=== PATIENT | female | born 1945 | race Caucasian/White ===

== ENCOUNTER 2019-10-28 13:33 | Inpatient (IN) | payer MEDICARE, OTHER ==
[2019-10-28] MEDS ORDERED: KETOROLAC 30 MG/ML 1 ML VIAL IVP STA (13:51)
[2019-10-28] MEDS ORDERED: MORPHINE SULFATE 4 MG/ML SYRINGE IVP STA (13:51)
--- NOTE | 2019-10-28 14:11 | ED ---
General Adult HPI - General Chief complaint: Extremity Injury, Upper Stated complaint: Fall/Wrist pain Time Seen by Provider: 10/28/19 13:41 Source: patient, RN notes reviewed, old records reviewed Mode of arrival: EMS Limitations: physical limitation - History of Present Illness Initial comments: 74-year-old female presents status post fall. She states she was helping a friend move, tripped falling backwards onto her right hand and wrist. Denies any other significant pain complaint. She did not have loss consciousness. She is not currently on any medication. She is otherwise healthy. She was transported by EMS with deformity at the right wrist. She was placed in a splint for transport. He is complaining of pain only at the right wrist. - Related Data Allergies Allergy/AdvReac Type Severity Reaction Status Date / Time No Known Allergies Allergy Verified 10/28/19 14:05 Review of Systems ROS Statement: Those systems with pertinent positive or pertinent negative responses have been documented in the HPI. ROS Other: All systems not noted in ROS Statement are negative. Past Medical History Past Medical History: GERD/Reflux History of Any Multi-Drug Resistant Organisms: None Reported Past Surgical History: No Surgical Hx Reported Past Psychological History: No Psychological Hx Reported Smoking Status: Never smoker Past Alcohol Use History: None Reported Past Drug Use History: None Reported General Exam Limitations: physical limitation General appearance: alert, in no apparent distress Head exam: Present: atraumatic, normocephalic Eye exam: Present: normal appearance, PERRL ENT exam: Present: normal exam Neck exam: Present: normal inspection. Absent: tenderness, meningismus Respiratory exam: Present: normal lung sounds bilaterally. Absent: respiratory distress, wheezes Cardiovascular Exam: Present: regular rate. Absent: normal rhythm, bradycardia GI/Abdominal exam: Present: soft. Absent: distended, tenderness Extremities exam: Present: other (Right upper extremity, deformity noted to the right wrist, normal sensation, limited range of motion secondary to pain, normal cap refill distally, 2+ radial pulse.) Back exam: Present: normal inspection Neurological exam: Present: alert, oriented X3, CN II-XII intact. Absent: motor sensory deficit Psychiatric exam: Present: normal affect, normal mood Skin exam: Present: warm, dry Course Vital Signs 10/28/19 10/28/19 13:42 14:13 Temperature 98 F Pulse Rate 61 68 Respiratory 18 18 Rate Blood Pressure 93/60 94/53 O2 Sat by Pulse 93 L 98 Oximetry Procedures - Orthopedic Fracture Reduction Fracture #1 Consent Obtained: verbal consent Side: right Analgesia: none Technique: direct manipulation, traction/counter-traction Post Reduction X-rays Demonstrate: acceptable reduction Post-Reduction Neuro Exam: intact Post-Reduction Vascular Exam: intact Splint Applied: Yes Patient Tolerated Procedure: well - Orthopedic Splinting/Casting Injury #1 Side: right Upper Extremity Injury Location: wrist Upper Extremity Immobilizer: volar splint Medical Decision Making - Medical Decision Making 74-year-old female had presented for evaluation of fall and right wrist pain and deformity. She has impacted angulated distal radius and ulnar fracture. I did reduce this fracture while playing splint. Repeat x-ray shows improved alignment. I discussed case with [facility] for [facility], recommends admission for operative repair tomorrow. Patient will be admitted to orthopedics with medicine on consult for preoperative clearance. Laboratory studies have been obtained these results are pending. Disposition Clinical Impression: Distal radial fracture Disposition: ADMITTED IP TO THIS [facility] Condition: Stable Is patient prescribed a controlled substance at d/c from ED?: No Referrals: Ousmane Miller III, MD [Primary Care Provider] - 1-2 days Decision to Admit Reason: Admit from EC Decision Date: 10/21/19 Decision Time: 15:54
--- NOTE | 2019-10-28 14:28 | XR ---
EXAMINATION TYPE: XR wrist complete RT DATE OF EXAM: 10/28/2019 COMPARISON: NONE HISTORY: Pain TECHNIQUE: Four views submitted. FINDINGS: There is impacted fracture of the distal radius with ulnar styloid chip fracture. Dorsal angulation n oted of the radial fracture. Soft tissue edema noted. Additional well-corticated densities in the reg ion of the ulnar styloid suggest remote trauma. IMPRESSION: 1. Impacted angulated fracture distal radius. 2. Suspect there is a chip fracture off the ulnar styloid noted on the oblique view.
--- NOTE | 2019-10-28 15:33 | XR ---
EXAMINATION TYPE: XR wrist limited RT DATE OF EXAM: 10/28/2019 CLINICAL HISTORY: Status post reduction of right wrist. Trauma. TECHNIQUE: Frontal and lateral images of the right wrist are obtained. COMPARISON: Right wrist radiograph 10/28/2019 at 2:15 PM FINDINGS: Overlying casting material. Interval reduction of impacted distal radial fracture, with mi ldly decreased shortening and dorsal angulation of the distal fragment versus prior comparison. Ulnar styloid fracture redemonstrated. Soft tissue swelling. IMPRESSION: Persistent although mildly decreased shortening and dorsal angulation of the distal radial fracture f ragment status post reduction. Ulnar styloid avulsion fracture.
[2019-10-28] MEDS ORDERED: IBUPROFEN 400 MG TAB PO PRN (15:46)
[2019-10-28] MEDS ORDERED: NALOXONE 0.4 MG/ML 1 ML VIAL IV PRN (15:46)
[2019-10-28] MEDS ORDERED: HYDROmorphone 0.5 MG/0.5 ML SYRINGE IVP PRN ×2 (15:46→17:28)
[2019-10-28 16:34] LABS: Basophils % (A) 0 %; Eosinophils # (A) 0.1 k/uL (0-0.7); Eosinophils % (A) 1 %; HCT 41.6 % (34.0-46.0); HGB 13.7 gm/dL (11.4-16.0); Lymphocytes % (A) 14 %; MCH 30.9 pg (25.0-35.0); MCHC 32.9 g/dL (31.0-37.0); MCV 93.9 fL (80.0-100.0); Mean Platelet Volume 7.6; Monocytes # (A) 0.2 k/uL (0-1.0); Monocytes % (A) 3 %; Neutrophils # (A) 5.8 k/uL (1.3-7.7); Neutrophils % (A) 82 %; Platelet Count 234 k/uL (150-450); RBC 4.43 m/uL (3.80-5.40); RDW 12.8 % (11.5-15.5)
[2019-10-28 16:45] LABS: INR 0.9 (<1.2); Prothrombin Time 9.8 sec (9.0-12.0)
[2019-10-28 16:54] LABS: ALT 16 U/L (4-34); AST 25 U/L (14-36); African American GFR (CKD) >90 (>60 ml/min/1.73 sqM); Albumin 3.9 g/dL (3.5-5.0); Alkaline Phosphatase 59 U/L (38-126); Anion Gap 6 mmol/L; Blood Urea Nitrogen 14 mg/dL (7-17); Calcium 8.9 mg/dL (8.4-10.2); Carbon Dioxide 28 mmol/L (22-30); Chloride 103 mmol/L (98-107); Glucose 140 mg/dL (74-99); Non-African American GFR(CKD) 86 (>60 ml/min/1.73 sqM); Potassium 3.7 mmol/L (3.5-5.1); Sodium 137 mmol/L (137-145); Total Bilirubin 1.2 mg/dL (0.2-1.3); Total Protein 6.6 g/dL (6.3-8.2)
[2019-10-28] MEDS ORDERED: LIDOCAINE 1% (10MG/ML) FOR IV START INTRADERMA PRN (17:28)
[2019-10-28] MEDS: SODIUM CHLORIDE 0.9% 1,000 ML IV SCH (18:04)
[2019-10-28] MEDS: ACETAMINOPHEN TAB 325 MG TAB PO PRN (20:45)
[2019-10-29] MEDS: ACETAMINOPHEN TAB 325 MG TAB PO PRN (08:16)
--- NOTE | 2019-10-29 09:45 | P.HPOR ---
History of Present Illness H&P Date: 10/29/19 Chief Complaint: Right distal radius fracture Patient is a 74-year-old female presented to [facility] yesterday afternoon after falling when she was helping a friend move something. She tripped and fell backwards landing on her wrist. Upon arrival to the hospital, imaging and lab tests were done. Images demonstrated a displaced right distal radius fracture with angulation, reduction. An attempt was made for by the ER physician to manipulate the fracture It better, and she was then placed in a volar splint. I was contacted by the emergency room staff, I was unable to discuss the case to my attending Dr. Garcia. The patient was admitted under our care with plan for likely surgical intervention. She had no other orthopedic complaints at the time. Patient was evaluated at bedside today, she is resting comfortably, her daughter was present. She note her discomfort is mainly in the wrist. She has no other orthopedic complaints. She normally drives on her own. She uses no devices to help with ambulation. Denies any headaches, lightheadedness, chest pain, shortness of breath, abdominal discomfort, fever or chills. Review of Systems Constitutional: Reports as per HPI Past Medical History Past Medical History: GERD/Reflux History of Any Multi-Drug Resistant Organisms: None Reported Past Surgical History: No Surgical Hx Reported Additional Past Surgical History / Comment(s): bilateral cataract surgery; right leg vein stripping Past Anesthesia/Blood Transfusion Reactions: No Reported Reaction Past Psychological History: No Psychological Hx Reported Smoking Status: Never smoker Past Alcohol Use History: None Reported Past Drug Use History: None Reported Medications and Allergies Home Medications Medication Instructions Recorded Confirmed Type No Known Home Medications 10/28/19 10/28/19 History Allergies Allergy/AdvReac Type Severity Reaction Status Date / Time No Known Allergies Allergy Verified 10/28/19 16:22 Physical Examination Right upper extremity Basic volar wrist splint is intact, no obvious open lesions or sores are visua lized proximal distal to the splint. There is no pain with palpation surrounding the shoulder, upper arm, elbow, fingers. Minimal soft tissue swelling present in the fingers. She is able to wiggle the fingers minimal difficulty. Her sensation to light touch is intact. Her skin is warm to touch. Results - Labs Labs: Abnormal Lab Results - Last 24 Hours (Table) 10/28/19 Range/Units 16:10 Glucose 140 H (74-99) mg/dL H & H 10/28/19 Range/Units 16:10 Hgb 13.7 (11.4-16.0) gm/dL Hct 41.6 (34.0-46.0) % Coagulation 10/28/19 Range/Units 16:21 INR 0.9 (<1.2) Result Diagrams: 10/28/19 16:10 10/28/19 16:10 - Diagnostic results Wrist/Hand x-ray: report reviewed, image reviewed (X-rays were reviewed pre-and post reduction. Images demonstrated a comminuted and displaced right distal radius fracture.) Assessment and Plan Assessment: Displacing comminuted right distal radius fracture Status post fall from standing Plan: After discussion of the case with Dr. Garcia, this including both physical exam findings and imaging studies we recommend surgical intervention. More specifically would like to proceed with an open reduction internal fixation procedure of the right distal radius fracture on 10/29/2019. Patient was made nothing by mouth after midnight, she has continued this into the morning. We will continue this total after surgery. Pain control, patient did not do well with a lot of. Utilize Tylenol, likely tramadol and morphine as needed Obtain consent Risk and benefits of the procedure were discussed patient, she is in good understanding and would like to proceed. Medical recommendations Further recommendations to follow after surgery, possible discharge home today depending on patient is in the postoperative period. Time with Patient: Less than 30
[2019-10-29] MEDS ORDERED: MIDAZOLAM 2 MG/2 ML VIAL IVP ONE (12:16)
[2019-10-29] MEDS ORDERED: LACTATED RINGERS 1,000 ML IV ONE ×2 (12:36)
[2019-10-29] MEDS ORDERED: ONDANSETRON 4 MG/2 ML VIAL ONE (13:03)
[2019-10-29] MEDS: DEXAMETHASONE SOD PHOSPHATE 10 MG/ML 1 ML VIAL IV ONE ×2 (13:05→17:17)
[2019-10-29] MEDS ORDERED: ONDANSETRON 4 MG/2 ML VIAL IVP ONE (13:05)
[2019-10-29] MEDS ORDERED: LIDOCAINE 1% INJ 10MG/ML (20 ML MDV) ONE (13:06)
[2019-10-29] MEDS ORDERED: DEXAMETHASONE SOD PHOSPHATE 4 MG/ML 1 ML VIAL ONE (13:06)
[2019-10-29] MEDS ORDERED: PROPOFOL 10 MG/ML 20 ML VIAL IV ONE (13:06)
[2019-10-29] MEDS ORDERED: ROPIVACAINE 5 MG/ML 30 ML VIAL ONE (13:06)
[2019-10-29] MEDS ORDERED: ROCURONIUM BROMIDE 10 MG/ML 5 ML VIAL IV ONE (13:06)
[2019-10-29] MEDS ORDERED: SUCCINYLCHOLINE CHLORIDE 100 MG/5 ML SYR IV ONE (13:06)
[2019-10-29] MEDS ORDERED: ceFAZolin 1,000 MG in SODIUM CHLORIDE 0.9% 1,000 ML IRRIGATION ONE (13:33)
--- NOTE | 2019-10-29 14:47 | P.OP ---
Date of Procedure: 10/29/19 Preoperative Diagnosis: Displaced right intra-articular distal radius fracture Postoperative Diagnosis: Same Procedure(s) Performed: Open reduction and internal fixation right intra-articular distal wrist fracture Implants: Arthrex 3 hole narrow volar plate Anesthesia: sunita SIDDIQI Surgeon: Roney Garcia Jewel Inserter #1: Yefri Sharma Estimated Blood Loss (ml): 5 Pathology: none sent Condition: stable Disposition: PACU Indications for Procedure: The patient's 74-year-old female who presents after falling injuring her right wrist. Upon evaluation she was noted have a significantly displaced/comminuted/angulated intra-articular distal radius fracture. A discussion of the risks and benefits of operative intervention was made with the patient. She opted to proceed with surgery. Operative risks to include infection, neurovascular injury, development of nonunion/malunion, possible need for subsequent procedures was discussed. Informed consent was obtained. Operative Findings: As below Description of Procedure: The patient was brought to the operating room, and after induction of general anesthesia the right upper extremity was prepped and draped in normal fashion. The tourniquet was inflated to 250 mmHg. An 8 cm incision was then made along the volar radial aspect of the right wrist over the flexor carpi radialis. Skin was incised sharply. Subcutaneous tissues were divided bluntly. The flexor carpi radialis tendon sheath was opened. The tendon was gently retracted ulnarly and the radial artery retracted radially with a blunt retractor. The un derlying fascia was opened. The contents the carpal canal were bluntly dissected ulnarly. The pronator quadratus was elevated off the distal radius and the fracture site was identified and cleaned of clot and debris. This was then provisionally reduced. This was verified with fluoroscopy. The joint line appear to be well restored. A narrow volar plate was placed with an olive wire and a K wire distally. Alignment was verified with fluoroscopy. Proximally 3.5 mm cortical screw the appropriate length was placed to seat the plate. The distal row of locked smooth pegs was placed with the aid of fluoroscopy. A proximal row was filled in a similar fashion. The remaining proximal cortical screws were placed in the appropriate length. Final fluoroscopic views to include PA/AP/elevated lateral showed adequate reduction of the fracture and placement of the implant. The articular surface was well aligned with no real step-off. The wound was irrigated with normal saline. The pronator was repaired with simple 3-0 Vicryl suture. The subcutaneous tissues were reapproximated with simple 3-0 Vicryl suture. The skin was reprepped 4-0 subcuticular Prolene suture. Steri-Strips were applied. A sterile dressing was applied in addition to a volar splint. The tourniquet was deflated prior to final wound closure was less than 60 minutes total tourniquet time. The patient was then awoken from general anesthesia and transferred to the recovery room in good condition. Blood loss was estimated 5 mL. No complications were incurred. Sponge and needle counts were correct at the end of the case.
[2019-10-29] MEDS ORDERED: SODIUM CHLORIDE 0.9% 1,000 ML IV ONE (15:41)
--- NOTE | 2019-10-29 15:50 | XR ---
Limited right wrist HISTORY: Open reduction internal fixation 3 intraoperative images document the procedure
--- NOTE | 2019-10-29 15:51 | FL ---
Fluoroscopy HISTORY: Pain 26 seconds fluoroscopy time supplied to the referring clinician. 3 intraoperative C-arm images docum ent the procedure. See dictated report from orthopedic surgery.
--- NOTE | 2019-10-29 16:59 | P.CONS ---
History of Present Illness - Reason for Consult Consult date: 10/29/19 Medical management and clearance - Chief Complaint Right distal radius fracture - History of Present Illness Patient is a 73-year-old female with a known history of GERD and history of secondhand smoking presents to ER status post fall. Patient states that she was helping her friend to move and she was holding the front of the commode and fell backwards onto her right hand and wrist. Patient states that she landed on her back. After the fall feel she was having right hand pain and unable to move. Patient states that she slipped and fell. Denied any complaints of dizziness lightheadedness. No loss of consciousness. Patient was brought to the hospital by EMS due to deformity of the right wrist. Patient was placed in a splint for transport. Otherwise patient denied any recent illnesses. No complaints of chest pain or shortness of breath. No fever no chills. X-ray of the right hand showed impacted angulated fracture distal radius. Suspect there is still fracture of the ulna styloid noted on the oblique view. Lab data showed WBC 7.0, hemoglobin 13.7 platelets 234 Sodium 137, potassium 3.7, BUN 14 and creatinine 0.68 Urinalysis within normal limits. Review of Systems Constitutional: Patient denies any fever or chills . No generalized weakness or weight loss. Abdomen: Patient denied nausea vomiting and diarrhea and abdominal pain. Cardiovascular: Patient denies any chest pain or short of breath no palpitations. Respiratory: patient denied any cough is from production. No shortness of breath Neurologic: Patient denied any numbness or tingling headache. Musculoskeletal: Patient denies any complaints of joint swelling or deformity. Right forearm pain. Skin: Negative Psychiatric: Negative Endocrine: No heat or cold intolerance. No recent weight gain. Genitourinary: No dysuria or hematuria. All other 14 point ROS negative except the above Past Medical History Past Medical History: GERD/Reflux History of Any Multi-Drug Resistant Organisms: None Reported Past Surgical History: No Surgical Hx Reported Additional Past Surgical History / Comment(s): bilateral cataract surgery; right leg vein stripping Past Anesthesia/Blood Transfusion Reactions: No Reported Reaction Past Psychological History: No Psychological Hx Reported Smoking Status: Never smoker Past Alcohol Use History: None Reported Past Drug Use History: None Reported Medications and Allergies Home Medications Medication Instructions Recorded Confirmed Type No Known Home Medications 10/28/19 10/28/19 History Allergies Allergy/AdvReac Type Severity Reaction Status Date / Time No Known Allergies Allergy Verified 10/28/19 16:22 Physical Exam Vitals: Vital Signs Temp Pulse Pulse Resp BP BP Pulse Ox 10/29/19 08:00 53 L 18 10/29/19 06:02 97.7 F 53 L 18 98/61 99 10/28/19 20:43 97.6 F 53 L 18 103/53 95 10/28/19 18:00 97.8 F 62 18 108/64 98 10/28/19 14:13 68 18 94/53 98 10/28/19 13:42 98 F 61 18 93/60 93 L Intake and Output 10/28/19 10/29/19 10/29/19 22:59 06:59 14:59 Intake Total 40 0 Balance 40 0 Intake: Intake, IV Titration 40 Amount Sodium Chloride 0.9% 1, 40 000 ml @ 20 mls/hr IV . Q24H CONSTANCE Rx#:[id number] Oral 0 Other: Voiding Method Toilet Toilet # Voids 2 Weight 74 kg PHYSICAL EXAMINATION: Patient is lying in the bed comfortably, no acute distress, awake alert and oriented.. HEENT: Normocephalic. Neck is supple. Pupils reactive. Nostrils clear. Oral cavity is moist. Ears reveal no drainage. Neck reveals no JVD, carotid bruits, or thyromegaly. CHEST EXAMINATION: Trachea is central. Symmetrical expansion. Lung rojas clear to auscultation and percussion. CARDIAC: Normal S1, S2 with no gallops. No murmurs ABDOMEN: Soft. Bowel sounds normal. No organomegaly. No abdominal bruits. Extremities: reveal no edema. No clubbing or cyanosis. Splint present on the right forearm. Neurologically awake, alert, oriented x3 with well-coordinated movements. No focal deficits noted Skin: No rash or skin lesions. Psychiatric: Coperative. Nonsuicidal Musculoskeletal: No joint swelling or deformity. Normal range of motion. Results CBC & Chem 7: 10/28/19 16:10 10/28/19 16:10 Labs: Abnormal Lab Results - Last 24 Hours (Table) 10/28/19 Range/Units 16:10 Glucose 140 H (74-99) mg/dL Assessment and Plan Assessment: Distal radius fracture and ulnar styloid fracture Status post mechanical fall while moving furniture. GERD Obesity BMI 31.9 History of secondhand smoking DVT prophylaxis Plan: Patient will be continued on pain management and bowel regimen. Increase incentive spirometry. Orthopedic surgery is planning for open reduction and internal fixation. Patient does not have any history of coronary disease or chronic kidney disease. Currently denies any active complaints of chest pain or shortness of the. Patient is at low risk for moderately disc orthopedic surgery. We will continue to follow with you and further recommendations based on clinical course. Thank you for your consult.
--- NOTE | 2019-10-29 17:14 | P.ANPRN ---
Procedure Note - Anesthesia - Nerve Block Performed Right Supraclavicular Single Time Out Performed: Yes Date of Procedure: 10/29/19 Location of Patient: PreOp Indication: Acute Post-Operative Pain, Requested by Surgeon Sedation Type: Sedate with meaningful contact maintained Preparation: Sterile Prep, Sterile Dressing Position: Supine Catheter: Indwelling Needle Types: Pajunk Needle Gauge: 21 Ultrasound used to visualize needle placement: Yes Ultrasound used to observe medication spread: Yes Blood Aspirated: No Pain Paresthesia on Injection Noted: No Resistance on Injection: Normal Image Stored and Saved: Yes Events: Uneventful and Well Tolerated (ropi .5% 20 cc plus dexamethasone 4mg)
[2019-10-29] MEDS: traMADol 50 MG TAB PO SCH ×2 (17:56→23:02)
[2019-10-29] MEDS: SODIUM CHLORIDE 0.9% 1,000 ML IV SCH (17:59)
[2019-10-29 20:52] VITALS: RESP 18
[2019-10-30 04:28] VITALS: BP 106/52; PULSE 54; TEMP 97.8
[2019-10-30] MEDS: traMADol 50 MG TAB PO SCH ×2 (08:54→11:33)
--- NOTE | 2019-10-30 10:11 | P.PN ---
Subjective Progress Note Date: 10/30/19 Principal diagnosis: Status post ORIF right distal radius fracture Patient evaluated today at bedside, she is resting comfortably. The pain is well-controlled. She still has some numbness in the arm from the block was done prior to surgery. She denies any nausea or vomiting. Objective - Vital Signs Vital signs: Vital Signs Temp 97.8 F 10/30/19 04:20 Pulse 54 L 10/30/19 08:00 Resp 18 10/30/19 08:00 BP 106/52 10/30/19 04:20 Pulse Ox 90 L 10/30/19 04:20 Intake & Output 10/29/19 10/30/19 10/30/19 18:59 06:59 18:59 Intake Total 1151 Output Total 5 Balance 1146 Intake: IV 1151 Output: Estimated Blood Loss 5 Other: Voiding Method Toilet Toilet Toilet # Voids 2 0 # Bowel Movements 0 - Exam Right upper extremity: Postop splint is in good position and condition. Minimal soft tissue swelling noted in the fingers. Skin is warm to touch both proximal and distal to the splint. - Labs CBC & Chem 7: 10/28/19 16:10 10/28/19 16:10 Assessment and Plan Assessment: Status post ORIF right distal radius fracture Plan: Pain control, plan for discharge home on tramadol 50 mg Cast instructions were discussed Arm sling as needed Plan for follow-up at [facility] in 2 weeks Time with Patient: Less than 30
--- NOTE | 2019-10-30 10:13 | P.DS ---
Providers Date of admission: 10/28/19 15:46 Attending physician: Roney Garcia Consults: 10/28/19 15:47 Consult Physician Routine Consulting Provider: Rafaela Gonzalez Consult Reason/Comments: Preop Clearance Do you want consulting provider notified?: Yes Primary care physician: Ousmane Miller [facility] Course: Date of admission: 10/28/2019 Date of discharge: 10/30/2019 Admission diagnosis: Displaced and comminuted right distal radius fracture Discharge diagnosis: Status post ORIF right distal radius fracture Attending physician: Dr. Garcia Surgical procedures: ORIF right distal radius fracture Brief history: Patient is a 74-year-old female who presented to [facility] on 10/28/2019 for evaluation of a right wrist injury. It was determined she had a displaced and comminuted distal radius fracture. She was admitted under orthopedic care for plan for surgical intervention. Hospital course: Details of patient's surgery can be found in operative report. Patient tolerated the procedure well and was subsequently transported to orthopedic floor. Patient's orthopeidc and medical care was provided daily. Patient had daily laboratory tests performed for evaluation of overall blood counts. Patient had daily physical therapy to include strengthening range of motion as well as education with walker ambulation. Patient was noted to have a relatively uneventful postoperative course. Patient reported satisfactory pain control with oral pain medications by postoperative day 0. Patient showed satisfactory progress with physical therapy. Patient moved steadily through the program and had no difficulty meeting the goals by postoperative day 1. Given patient's otherwise satisfactory course and having met physical therapy goals, plan is to discharge patient home on postoperative day 1. Discharge condition/disposition: Patient will be discharged home in stable condition. Discharge medications: Instructions are given on resumption of patient's normal daily medications per primary care recommendation, in addition patient will be prescribed tramadol 50 mg. Discharge instructions: 1. Do not remove the arm splint, utilize sling as needed 2. Arm sling as needed 3. Plan for follow-up at [facility] in 2 weeks Procedures: Open reduction internal fixation distal radius fracture Patient Condition at Discharge: Good Plan - Discharge Summary Discharge Rx Participant: Yes New Discharge Prescriptions: New traMADol HCl [Ultram] 50 mg PO Q6H PRN #21 tab PRN Reason: Pain Discharge Medication List traMADol HCl [Ultram] 50 mg PO Q6H PRN #21 tab 10/30/19 [Rx] Follow up Appointment(s)/Referral(s): Ousmane Miller III, MD [Primary Care Provider] - 1-2 days Yefri Sharma PAC [PHYSICIAN MANUFACTURING ENGINEER SUPERVISOR] - 2 Weeks Activity/Diet/Wound Care/Special Instructions: Wants d/c rx Orthopedic discharge instructions: 1. Do not remove the splint, keep covered and dry while showering 2. Pain medication as needed 3. Plan for follow-up at [facility] in 2 weeks Discharge Disposition: HOME WITH HOME HEALTH SERVICES
== END 2019-10-30 12:38 | disposition home health service (06) | DRG 512 ==
LOC: EC 13:33 → 5NMEDONC 15:46
PROVIDERS: ADMIT Orthopaedic Surgery; ATTEND Orthopaedic Surgery
PROC: 0PSKXZZ Reposition Right Ulna, External Approach (ICD-10-PCS; 2019-10-28)
PROC: 0PSHXZZ Reposition Right Radius, External Approach (ICD-10-PCS; 2019-10-28)
PROC: 0PSH04Z Reposition Right Radius with Internal Fixation Device, Open Approach (ICD-10-PCS; principal; 2019-10-29 07:30)
DX: S52.571A Other intraarticular fracture of lower end of right radius, initial encounter for closed fracture (principal); E66.9 Obesity, unspecified; S52.611A Displaced fracture of right ulna styloid process, initial encounter for closed fracture; I83.90 Asymptomatic varicose veins of unspecified lower extremity; K21.9 Gastro-esophageal reflux disease without esophagitis; Z68.31 Body mass index [BMI] 31.0-31.9, adult; Z77.22 Contact with and (suspected) exposure to environmental tobacco smoke (acute) (chronic); Z98.42 Cataract extraction status, left eye; Z98.41 Cataract extraction status, right eye; Z86.79 Personal history of other diseases of the circulatory system; Z98.890 Other specified postprocedural states; W01.0XXA Fall on same level from slipping, tripping and stumbling without subsequent striking against object, initial encounter
CPT/HCPCS: 25605; 36415; 64450; 76942; 80053; 85025; 85610; 96374; 96375; 99285

== ENCOUNTER → 2019-11-26 | Outpatient (CLI) | payer MEDICARE, OTHER ==
--- NOTE | 2019-11-26 13:16 | BD ---
EXAMINATION TYPE: Axial Bone Density DATE OF EXAM: 11/26/2019 COMPARISON: Prior DEXA bone scan report 2008. CLINICAL HISTORY: Postmenopausal female. Osteoporosis. Height: 60 Weight: 149.8 FRAX RISK QUESTIONS: Alcohol (3 or more units per day): no Family History (Parent hip fracture): no Glucocorticoids (More than 3mos): no (Ex: prednisone, prednisolone, methylprednisolone, dexamethasone, and hydrocortisone). History of Fracture in Adulthood: yes Secondary Osteoporosis: 1. Type 1 Diabetes: no 2. Hyperthyroidism: no 3. Menopause before 45: no 4. Malnutrition: no 5. Chronic liver disease: no Rheumatoid Arthritis: no Current Tobacco Use: no RISK FACTORS HISTORY OF: History of Wrist Fracture: right When: Surgery to Spine/Hip(right/left)/Wrist (right/left): right wrist When: Family History of Osteoporosis: no Active: yes Diet low in dairy products/other sources of calcium: no Postmenopausal woman: age 52 Lost more than 2 inches in height since high school: no MEDICATIONS: none Additional History: EXAM MEASUREMENTS: Bone mineral densitometry was performed using the [employer] System. Bone mineral density as measured about the Lumbar spine is: ----- L1-L4(G/cm2): 1.030 T Score Values are as follows: ----- L2: -1.9 ----- L3: -0.7 ----- L4: -0.3 ----- L1-L4: -1.3 Bone mineral density has: increased 9.1 % since study of: 02.18.2009 Bone mineral density about the R hip (g/cm2): 0.813 Bone mineral density about the L hip (g/cm2): 0.982 T Score values are as follows: -----R Neck: -1.6 -----L Neck: -0.4 -----R Total: -1.2 -----L Total: -0.5 Bone mineral density has: increased 3.1 % since study of: 02.18.2009 IMPRESSION: Osteopenia (T Score between -2.5 and -1). There is slightly increased risk of fracture and the patient may be considered for treatment. Re-Screen 2-5 years. NOTE: T-SCORE=SD OF THE YOUNG ADULT MEAN.
--- NOTE | 2019-11-27 09:57 | MM ---
Reason for exam: screening (asymptomatic). Last mammogram was performed 10 years and 9 months ago. History: Patient is postmenopausal. Family history of breast cancer in daughter at age 42. Physical Findings: A clinical breast exam by your physician is recommended on an annual basis and results should be correlated with mammographic findings. MG 3D Screening Mammo W/Cad Bilateral CC and MLO view(s) were taken. Prior study comparison: February 18, 2009, bilateral digital screening mammogram. May 29, 2007, bilateral diagnostic digital mammog. The breast tissue is heterogeneously dense. This may lower the sensitivity of mammography. Finding: There is a 10 mm equal density (isodense), obscured mass in the subareolar position of the right breast. There is a chronic nodularity in the left breast. ASSESSMENT: Incomplete: need additional imaging evaluation, BI-RAD 0 RECOMMENDATION: Special view mammogram of the right breast. If lesion persists on supplemental views, image directed ultrasound is recommended. [facility] will attempt to contact patient to return for supplemental views and ultrasound if indicated.
== END | disposition home or self-care (01) ==
LOC: RADMAMWWP 08:24
PROVIDERS: ATTEND Family Medicine
DX: Z12.31 Encounter for screening mammogram for malignant neoplasm of breast (principal); M85.80 Other specified disorders of bone density and structure, unspecified site; M81.8 Other osteoporosis without current pathological fracture
CPT/HCPCS: 77063; 77067; 77080

== ENCOUNTER → 2019-12-19 | Outpatient (CLI) | payer MEDICARE, OTHER ==
--- NOTE | 2019-12-19 14:48 | MM ---
Reason for exam: additional evaluation requested from abnormal screening. Last mammogram was performed 1 month ago. History: Patient is postmenopausal. Family history of breast cancer in daughter at age 42. Physical Findings: Nurse did not find any significant physical abnormalities on exam. MG 3D Work Up W/Cad RT Spot compression CC, spot compression MLO, and ML view(s) were taken of the right breast. Prior study comparison: November 26, 2019, bilateral MG 3d screening mammo w/cad. February 18, 2009, bilateral digital screening mammogram. The breast tissue is heterogeneously dense. This may lower the sensitivity of mammography. Focal asymmetry lower right ML view 4.3cm from nipple. These results were verbally communicated with the patient and result sheet given to the patient on 12/19/19. ASSESSMENT: Incomplete: need additional imaging evaluation, BI-RAD 0 RECOMMENDATION: Ultrasound of the right breast.
--- NOTE | 2019-12-19 14:49 | USB ---
Reason for exam: additional evaluation requested from abnormal screening. History: Patient is postmenopausal. Family history of breast cancer in daughter at age 42. US Breast Workup Limited RT Right limited breast ultrasound including focal area of concern, retroareolar and axilla demonstrates a 0.7 x 0.3 x 0.6cm mixed lesion at 9 o'clock. These results were verbally communicated with the patient and result sheet given to the patient on 12/19/19. ASSESSMENT: Probably benign, BI-RAD 3 RECOMMENDATION: Follow-up diagnostic mammogram and ultrasound of the right breast in 6 months.
== END | disposition home or self-care (01) ==
LOC: RADMAMWWP 13:06
PROVIDERS: ATTEND Family Medicine
DX: R92.8 Other abnormal and inconclusive findings on diagnostic imaging of breast (principal)
CPT/HCPCS: 77065; 76642; G0279; 77061

== ENCOUNTER 2020-06-17 08:40 | Emergency (ER) | payer MEDICARE, OTHER ==
[2020-06-17] MEDS ORDERED: SODIUM CHLORIDE 0.9% 1,000 ML IV STA (08:56)
[2020-06-17] MEDS ORDERED: SODIUM CHLORIDE 0.9% 500 ML 500 ML IV STA (08:56)
[2020-06-17 09:17] LABS: Basophils % (A) 0 %; Eosinophils % (A) 1 %; HCT 42.4 % (34.0-46.0); HGB 14.6 gm/dL (11.4-16.0); Lymphocytes # (A) 0.7 k/uL (1.0-4.8); Lymphocytes % (A) 32 %; MCHC 34.5 g/dL (31.0-37.0); MCV 92.7 fL (80.0-100.0); Mean Platelet Volume 7.3; Monocytes # (A) 0.1 k/uL (0-1.0); Monocytes % (A) 5 %; Neutrophils # (A) 1.2 k/uL (1.3-7.7); Neutrophils % (A) 61 %; Platelet Count 132 k/uL (150-450); RBC 4.57 m/uL (3.80-5.40); RDW 11.8 % (11.5-15.5)
[2020-06-17 09:27] LABS: ALT 21 U/L (4-34); AST 45 U/L (14-36); African American GFR (CKD) >90 (>60 ml/min/1.73 sqM); Albumin 3.6 g/dL (3.5-5.0); Alkaline Phosphatase 65 U/L (38-126); Amylase 35 U/L (30-110); Anion Gap 7 mmol/L; Blood Urea Nitrogen 12 mg/dL (7-17); Calcium 8.5 mg/dL (8.4-10.2); Carbon Dioxide 27 mmol/L (22-30); Chloride 103 mmol/L (98-107); Glucose 105 mg/dL (74-99); Lipase 50 U/L (23-300); Non-African American GFR(CKD) >90 (>60 ml/min/1.73 sqM); Sodium 137 mmol/L (137-145); Total Bilirubin 0.6 mg/dL (0.2-1.3); Total Protein 6.5 g/dL (6.3-8.2)
--- NOTE | 2020-06-17 09:32 | XR ---
Lumbar spine HISTORY: Low back pain 3 views of lumbar spine Bone mineralization is reduced which could limit sensitivity. Lumbar vertebral bodies show preserved height. There is a mild spinal curvature. Anterolisthesis grade 1 L4-5. Sclerosis is present in the p osterior elements of the lower lumbar spine. There is loss of disc height present at L3-4, L2-3, L1-2 . IMPRESSION: Degenerative disc disease, osteopenia, facet arthropathy. Spondylolisthesis.
[2020-06-17 10:19] LABS: Appearance,Urine Clear (Clear); Bilirubin,Urine 1+ (Negative); Blood,Urine Moderate (Negative); Color,Urine Yellow; Glucose,Urine (UA) Trace (Negative); Ketones,Urine 2+ (Negative); Leukocyte Esterase,Urine Negative (Negative); Mucus,Urine Many /hpf; Nitrite,Urine Negative (Negative); PH, Urine 5.5 (5.0-8.0); Protein,Urine 1+ (Negative); RBC,Urine 9 /hpf (0-5); Squamous Epithelial Cell,Urine 3 /hpf (0-4); Urobilinogen,Urine <2.0 mg/dL (<2.0); WBC,Urine 5 /hpf (0-5)
[2020-06-17 10:45] VITALS: RESP 18
--- NOTE | 2020-06-17 10:53 | ED ---
General Adult HPI - General Chief complaint: Back Pain/Injury Stated complaint: Dehydrated/back pain/nausea Time Seen by Provider: 06/17/20 08:48 Source: patient, RN notes reviewed Mode of arrival: ambulatory Limitations: no limitations - History of Present Illness Initial comments: This a 74-year-old female presents emergency Department chief complaint of just not feeling well, nausea and dehydration. Patient states that she just hasn't been eating and drinking as much last 2 days. She denies any chest pain shortness breath headache or dizziness. Patient states she went to [facility] but was not seen and left. Patient states that she has no severe abdominal pain no dysuria no hematuria and she offers no other complaints. - Related Data Home Medications Medication Instructions Recorded Confirmed No Known Home Medications 06/17/20 06/17/20 Allergies Allergy/AdvReac Type Severity Reaction Status Date / Time No Known Allergies Allergy Verified 06/17/20 10:13 Review of Systems ROS Statement: Those systems with pertinent positive or pertinent negative responses have been documented in the HPI. ROS Other: All systems not noted in ROS Statement are negative. Past Medical History Past Medical History: GERD/Reflux History of Any Multi-Drug Resistant Organisms: None Reported Past Surgical History: No Surgical Hx Reported Additional Past Surgical History / Comment(s): bilateral cataract surgery; right leg vein stripping Past Anesthesia/Blood Transfusion Reactions: No Reported Reaction Past Psychological History: No Psychological Hx Reported Smoking Status: Never smoker Past Alcohol Use History: None Reported Past Drug Use History: None Reported General Exam Limitations: no limitations General appearance: alert, in no apparent distress Head exam: Present: atraumatic, normocephalic, normal inspection Eye exam: Present: normal appearance, PERRL, EOMI. Absent: scleral icterus, conjunctival injection, periorbital swelling ENT exam: Present: normal exam, normal oropharynx, mucous membranes moist Neck exam: Present: normal inspection, full ROM. Absent: tenderness, men ingismus, lymphadenopathy Respiratory exam: Present: normal lung sounds bilaterally. Absent: respiratory distress, wheezes, rales, rhonchi, stridor Cardiovascular Exam: Present: regular rate, normal rhythm, normal heart sounds. Absent: systolic murmur, diastolic murmur, rubs, gallop, clicks GI/Abdominal exam: Present: soft, normal bowel sounds. Absent: distended, tenderness, guarding, rebound, rigid Course Vital Signs 06/17/20 06/17/20 08:42 10:43 Temperature 99.1 F 98.3 F Pulse Rate 77 64 Respiratory 16 18 Rate Blood Pressure 102/61 106/60 O2 Sat by Pulse 93 L 97 Oximetry Medical Decision Making - Medical Decision Making Patient has no major complaints patient does have mild dehydration patient is positive for Covid. Patient was given multiple antibiotics. Patient discharged stable condition. - Lab Data Result diagrams: 06/17/20 09:00 06/17/20 09:00 Lab Results 06/17/20 06/17/20 06/17/20 Range/Units 09:00 09:00 09:00 WBC 2.0 L (3.8-10.6) k/uL RBC 4.57 (3.80-5.40) m/uL Hgb 14.6 (11.4-16.0) gm/dL Hct 42.4 (34.0-46.0) % MCV 92.7 (80.0-100.0) fL MCH 32.0 (25.0-35.0) pg MCHC 34.5 (31.0-37.0) g/dL RDW 11.8 (11.5-15.5) % Plt Count 132 L (150-450) k/uL MPV 7.3 Neutrophils % 61 % Lymphocytes % 32 % Monocytes % 5 % Eosinophils % 1 % Basophils % 0 % Neutrophils # 1.2 L (1.3-7.7) k/uL Lymphocytes # 0.7 L (1.0-4.8) k/uL Monocytes # 0.1 (0-1.0) k/uL Eosinophils # 0.0 (0-0.7) k/uL Basophils # 0.0 (0-0.2) k/uL Sodium 137 (137-145) mmol/L Potassium 3.0 L (3.5-5.1) mmol/L Chloride 103 (98-107) mmol/L Carbon Dioxide 27 (22-30) mmol/L Anion Gap 7 mmol/L BUN 12 (7-17) mg/dL Creatinine 0.55 (0.52-1.04) mg/dL Est GFR (CKD-EPI)AfAm >90 (>60 ml/min/1.73 sqM) Est GFR (CKD-EPI)NonAf >90 (>60 ml/min/1.73 sqM) Glucose 105 H (74-99) mg/dL Calcium 8.5 (8.4-10.2) mg/dL Total Bilirubin 0.6 (0.2-1.3) mg/dL AST 45 H (14-36) U/L ALT 21 (4-34) U/L Alkaline Phosphatase 65 (38-126) U/L Total Protein 6.5 (6.3-8.2) g/dL Albumin 3.6 (3.5-5.0) g/dL Amylase 35 (30-110) U/L Lipase 50 (23-300) U/L Urine Color Yellow Urine Appearance Clear (Clear) Urine pH 5.5 (5.0-8.0) Ur Specific [place] 1.030 (1.001-1.035) Urine Protein 1+ H (Negative) Urine Glucose (UA) Trace H (Negative) Urine Ketones 2+ H (Negative) Urine Blood Moderate H (Negative) Urine Nitrite Negative (Negative) Urine Bilirubin 1+ H (Negative) Urine Urobilinogen <2.0 (<2.0) mg/dL Ur Leukocyte Esterase Negative (Negative) Urine RBC 9 H (0-5) /hpf Urine WBC 5 (0-5) /hpf Ur Squamous Epith Cells 3 (0-4) /hpf Urine Mucus Many H (None) /hpf Coronavirus (PCR) (Not Detectd) 06/17/20 Range/Units 10:01 WBC (3.8-10.6) k/uL RBC (3.80-5.40) m/uL Hgb (11.4-16.0) gm/dL Hct (34.0-46.0) % MCV (80.0-100.0) fL MCH (25.0-35.0) pg MCHC (31.0-37.0) g/dL RDW (11.5-15.5) % Plt Count (150-450) k/uL MPV Neutrophils % % Lymphocytes % % Monocytes % % Eosinophils % % Basophils % % Neutrophils # (1.3-7.7) k/uL Lymphocytes # (1.0-4.8) k/uL Monocytes # (0-1.0) k/uL Eosinophils # (0-0.7) k/uL Basophils # (0-0.2) k/uL Sodium (137-145) mmol/L Potassium (3.5-5.1) mmol/L Chloride (98-107) mmol/L Carbon Dioxide (22-30) mmol/L Anion Gap mmol/L BUN (7-17) mg/dL Creatinine (0.52-1.04) mg/dL Est GFR (CKD-EPI)AfAm (>60 ml/min/1.73 sqM) Est GFR (CKD-EPI)NonAf (>60 ml/min/1.73 sqM) Glucose (74-99) mg/dL Calcium (8.4-10.2) mg/dL Total Bilirubin (0.2-1.3) mg/dL AST (14-36) U/L ALT (4-34) U/L Alkaline Phosphatase (38-126) U/L Total Protein (6.3-8.2) g/dL Albumin (3.5-5.0) g/dL Amylase (30-110) U/L Lipase (23-300) U/L Urine Color Urine Appearance (Clear) Urine pH (5.0-8.0) Ur Specific [place] (1.001-1.035) Urine Protein (Negative) Urine Glucose (UA) (Negative) Urine Ketones (Negative) Urine Blood (Negative) Urine Nitrite (Negative) Urine Bilirubin (Negative) Urine Urobilinogen (<2.0) mg/dL Ur Leukocyte Esterase (Negative) Urine RBC (0-5) /hpf Urine WBC (0-5) /hpf Ur Squamous Epith Cells (0-4) /hpf Urine Mucus (None) /hpf Coronavirus (PCR) Detected A (Not Detectd) Disposition Clinical Impression: COVID-19, Dehydration Disposition: HOME SELF-CARE Condition: Stable Instructions (If sedation given, give patient instructions): Coronavirus Disease 2019 (COVID-19) Additional Instructions: Please return to the Emergency Department if symptoms worsen or any other concerns. Is patient prescribed a controlled substance at d/c from ED?: No Referrals: Randall Marinelli MD [Primary Care Provider] - 1-2 days Time of Disposition: 10:53
[2020-06-17] MEDS ORDERED: BAMLANIVIMAB (EUA) 700 MG, ETESEVIMAB (EUA) 1,400 MG in SODIUM CHLORIDE 0.9% 50 ML IVPB ONE (11:30)
[2020-06-17] MEDS ORDERED: ACETAMINOPHEN TAB 325 MG TAB PO STA (12:44)
[2020-06-17 13:55] VITALS: BP 108/60; PULSE 66; TEMP 99.4
== END 2020-06-17 13:54 | disposition home or self-care (01) ==
LOC: EC 08:40
DX: U07.1 COVID-19 (principal); E86.0 Dehydration; K21.9 Gastro-esophageal reflux disease without esophagitis
CPT/HCPCS: 36415; 80053; 82150; 83690; 85025; 81001; 87635; 72100; 99283; 96365; 96366; 96361; Q0245

== ENCOUNTER 2020-06-20 07:07 | Emergency (ER) | payer MEDICARE, OTHER ==
[2020-06-20] MEDS ORDERED: SODIUM CHLORIDE 0.9% 1,000 ML IV STA (07:24)
[2020-06-20] MEDS ORDERED: IBUPROFEN 600 MG TAB PO STA (07:24)
--- NOTE | 2020-06-20 07:28 | ED ---
General Adult HPI - General Chief complaint: Weakness Stated complaint: Dehydration Time Seen by Provider: 06/20/20 07:15 Source: patient, EMS, RN notes reviewed, old records reviewed Mode of arrival: EMS - History of Present Illness Initial comments: This is a 74-year-old female who presents emergency Department stating that she was diagnosed with COVID Monday she believes her symptoms started on Monday. Patient came in Monday and received the monoclonal antibodies. Patient states that since she's been very fatigued though she denies any shortness of breath. Patient states anytime she gets up and walks around she becomes more more fatigued per patient denies chest pain or palpitations. Patient states she did not seem to have a fever today she denied any chills. Patient states she just started diarrhea this morning. Patient denies any nausea or vomiting. Patient denies abdominal pain. Patient denies headache patient denies numbness or weakness. - Related Data Home Medications Medication Instructions Recorded Confirmed Ibuprofen [Motrin Ib] 100 mg PO Q8H PRN 06/20/20 06/20/20 Allergies Allergy/AdvReac Type Severity Reaction Status Date / Time No Known Allergies Allergy Verified 06/20/20 08:45 Review of Systems ROS Statement: Those systems with pertinent positive or pertinent negative responses have been documented in the HPI. ROS Other: All systems not noted in ROS Statement are negative. Past Medical History Past Medical History: GERD/Reflux History of Any Multi-Drug Resistant Organisms: None Reported Past Surgical History: No Surgical Hx Reported Additional Past Surgical History / Comment(s): bilateral cataract surgery; right leg vein stripping Past Anesthesia/Blood Transfusion Reactions: No Reported Reaction Past Psychological History: No Psychological Hx Reported Smoking Status: Never smoker Past Alcohol Use History: None Reported Past Drug Use History: None Reported General Exam - General Exam Comments Initial Comments: GENERAL: Patient is well-developed and well-nourished. Patient is nontoxic and well- hydrated and is mild distress. ENT: Neck is soft and supple. No significant lymphadenopathy is noted. Oropharynx is clear. Moist mucous membranes. Neck has full range of motion without eliciting any pain. EYES: The sclera were anicteric and conjunctiva were pink and moist. Extraocular movements were intact and pupils were equal round and reactive to light. Eye lids were unremarkable. PULMONARY: Unlabored respirations. Good breath sounds bilaterally. Crackles right base. CARDIOVASCULAR: There is a regular rate and rhythm without any murmurs gallops or rubs. ABDOMEN: Soft and nontender with normal bowel sounds. SKIN: Skin is clear with no lesions or rashes and otherwise unremarkable. NEUROLOGIC: Patient is alert and oriented x3. Cranial nerves II through XII are grossly intact. Motor and sensory are also intact. Normal speech, volume and content. Symmetrical smile. MUSCULOSKELETAL: Normal extremities with adequate strength and full range of motion. LYMPHATICS: No significant lymphadenopathy is noted PSYCHIATRIC: Normal psychiatric evaluation. N Course Vital Signs 06/20/20 07:15 Temperature 97.9 F Pulse Rate 67 Respiratory 18 Rate Blood Pressure 119/67 O2 Sat by Pulse 100 Oximetry Medical Decision Making - Medical Decision Making EKG shows a sinus bradycardia at 57 bpm MS interval is 176 QRS is 94 QT interval 474 QTC is 461. Patient's EKG shows no ST segment elevation or depression. X-ray shows no acute abnormalities. Patient was somewhat dehydrated I give her a liter of normal saline. Patient a lso states she has been eating and she's been advised to try to eat as much as she can. - Lab Data Result diagrams: 06/20/20 07:32 06/20/20 07:32 Lab Results 06/20/20 06/20/20 06/20/20 Range/Units 07:32 07:32 07:32 WBC 3.6 L (3.8-10.6) k/uL RBC 4.68 (3.80-5.40) m/uL Hgb 15.0 (11.4-16.0) gm/dL Hct 43.6 (34.0-46.0) % MCV 93.1 (80.0-100.0) fL MCH 32.0 (25.0-35.0) pg MCHC 34.4 (31.0-37.0) g/dL RDW 11.9 (11.5-15.5) % Plt Count 167 (150-450) k/uL MPV 7.1 Neutrophils % 55 % Lymphocytes % 38 % Monocytes % 3 % Eosinophils % 2 % Basophils % 1 % Neutrophils # 2.0 (1.3-7.7) k/uL Lymphocytes # 1.4 (1.0-4.8) k/uL Monocytes # 0.1 (0-1.0) k/uL Eosinophils # 0.1 (0-0.7) k/uL Basophils # 0.0 (0-0.2) k/uL PT 10.1 (9.0-12.0) sec INR 0.9 (<1.2) APTT 24.0 (22.0-30.0) sec Sodium 141 (137-145) mmol/L Potassium 3.1 L (3.5-5.1) mmol/L Chloride 108 H (98-107) mmol/L Carbon Dioxide 24 (22-30) mmol/L Anion Gap 9 mmol/L BUN 16 (7-17) mg/dL Creatinine 0.56 (0.52-1.04) mg/dL Est GFR (CKD-EPI)AfAm >90 (>60 ml/min/1.73 sqM) Est GFR (CKD-EPI)NonAf >90 (>60 ml/min/1.73 sqM) Glucose 83 (74-99) mg/dL Plasma Lactic Acid Faraz (0.7-2.0) mmol/L Calcium 8.4 (8.4-10.2) mg/dL Magnesium 1.8 (1.6-2.3) mg/dL Total Bilirubin 0.9 (0.2-1.3) mg/dL AST 43 H (14-36) U/L ALT 17 (4-34) U/L Alkaline Phosphatase 65 (38-126) U/L Troponin I (0.000-0.034) ng/mL Total Protein 6.2 L (6.3-8.2) g/dL Albumin 3.4 L (3.5-5.0) g/dL Urine Color Urine Appearance (Clear) Urine pH (5.0-8.0) Ur Specific [place] (1.001-1.035) Urine Protein (Negative) Urine Glucose (UA) (Negative) Urine Ketones (Negative) Urine Blood (Negative) Urine Nitrite (Negative) Urine Bilirubin (Negative) Urine Urobilinogen (<2.0) mg/dL Ur Leukocyte Esterase (Negative) Urine RBC (0-5) /hpf Urine WBC (0-5) /hpf Ur Squamous Epith Cells (0-4) /hpf Hyaline Casts (0-2) /lpf Urine Mucus (None) /hpf 04/03/21 04/03/21 04/03/21 Range/Units 07:32 07:32 07:54 WBC (3.8-10.6) k/uL RBC (3.80-5.40) m/uL Hgb (11.4-16.0) gm/dL Hct (34.0-46.0) % MCV (80.0-100.0) fL MCH (25.0-35.0) pg MCHC (31.0-37.0) g/dL RDW (11.5-15.5) % Plt Count (150-450) k/uL MPV Neutrophils % % Lymphocytes % % Monocytes % % Eosinophils % % Basophils % % Neutrophils # (1.3-7.7) k/uL Lymphocytes # (1.0-4.8) k/uL Monocytes # (0-1.0) k/uL Eosinophils # (0-0.7) k/uL Basophils # (0-0.2) k/uL PT (9.0-12.0) sec INR (<1.2) APTT (22.0-30.0) sec Sodium (137-145) mmol/L Potassium (3.5-5.1) mmol/L Chloride (98-107) mmol/L Carbon Dioxide (22-30) mmol/L Anion Gap mmol/L BUN (7-17) mg/dL Creatinine (0.52-1.04) mg/dL Est GFR (CKD-EPI)AfAm (>60 ml/min/1.73 sqM) Est GFR (CKD-EPI)NonAf (>60 ml/min/1.73 sqM) Glucose (74-99) mg/dL Plasma Lactic Acid [place]az 1.5 (0.7-2.0) mmol/L Calcium (8.4-10.2) mg/dL Magnesium (1.6-2.3) mg/dL Total Bilirubin (0.2-1.3) mg/dL AST (14-36) U/L ALT (4-34) U/L Alkaline Phosphatase (38-126) U/L Troponin I <0.012 (0.000-0.034) ng/mL Total Protein (6.3-8.2) g/dL Albumin (3.5-5.0) g/dL Urine Color Yellow Urine Appearance Clear (Clear) Urine pH 6.0 (5.0-8.0) Ur Specific [place] 1.029 (1.001-1.035) Urine Protein 1+ H (Negative) Urine Glucose (UA) Negative (Negative) Urine Ketones 4+ H (Negative) Urine Blood Small H (Negative) Urine Nitrite Negative (Negative) Urine Bilirubin 1+ H (Negative) Urine Urobilinogen 2.0 (<2.0) mg/dL Ur Leukocyte Esterase Negative (Negative) Urine RBC 5 (0-5) /hpf Urine WBC 4 (0-5) /hpf Ur Squamous Epith Cells 3 (0-4) /hpf Hyaline Casts 4 H (0-2) /lpf Urine Mucus Moderate H (None) /hpf Disposition Clinical Impression: COVID-19 Disposition: HOME SELF-CARE Condition: Good Instructions (If sedation given, give patient instructions): Coronavirus Disease 2019 (COVID-19) Is patient prescribed a controlled substance at d/c from ED?: No Referrals: Randall Marinelli MD [Primary Care Provider] - 1-2 days Time of Disposition: 10:04
[2020-06-20 07:42] LABS: Basophils % (A) 1 %; Eosinophils # (A) 0.1 k/uL (0-0.7); Eosinophils % (A) 2 %; HCT 43.6 % (34.0-46.0); Lymphocytes # (A) 1.4 k/uL (1.0-4.8); Lymphocytes % (A) 38 %; MCHC 34.4 g/dL (31.0-37.0); MCV 93.1 fL (80.0-100.0); Mean Platelet Volume 7.1; Monocytes # (A) 0.1 k/uL (0-1.0); Monocytes % (A) 3 %; Neutrophils % (A) 55 %; Platelet Count 167 k/uL (150-450); RBC 4.68 m/uL (3.80-5.40); RDW 11.9 % (11.5-15.5); WBC 3.6 k/uL (3.8-10.6)
[2020-06-20 07:54] LABS: INR 0.9 (<1.2); Prothrombin Time 10.1 sec (9.0-12.0)
[2020-06-20 07:58] LABS: ALT 17 U/L (4-34); AST 43 U/L (14-36); African American GFR (CKD) >90 (>60 ml/min/1.73 sqM); Albumin 3.4 g/dL (3.5-5.0); Alkaline Phosphatase 65 U/L (38-126); Anion Gap 9 mmol/L; Blood Urea Nitrogen 16 mg/dL (7-17); Calcium 8.4 mg/dL (8.4-10.2); Carbon Dioxide 24 mmol/L (22-30); Chloride 108 mmol/L (98-107); Glucose 83 mg/dL (74-99); Magnesium 1.8 mg/dL (1.6-2.3); Non-African American GFR(CKD) >90 (>60 ml/min/1.73 sqM); Potassium 3.1 mmol/L (3.5-5.1); Sodium 141 mmol/L (137-145); Total Bilirubin 0.9 mg/dL (0.2-1.3); Total Protein 6.2 g/dL (6.3-8.2)
--- NOTE | 2020-06-20 08:02 | XR ---
EXAMINATION TYPE: XR chest 1V portable DATE OF EXAM: 06/20/2020 COMPARISON: None HISTORY: Covid TECHNIQUE: Single frontal view of the chest is obtained. FINDINGS: The lungs are clear of consolidative, interstitial or masslike opacity. There is no pleural effusion, pleural thickening or pneumothorax. The heart, pulmonary vasculature, mediastinum and hilum appear normal. The osseous structures are intact. IMPRESSION: No acute cardiopulmonary disease. IMPRESSION: No acute process.
[2020-06-20] MEDS ORDERED: POTASSIUM CHLORIDE ER 20 MEQ TAB.ER PO STA (08:22)
[2020-06-20 09:46] LABS: Appearance,Urine Clear (Clear); Bilirubin,Urine 1+ (Negative); Blood,Urine Small (Negative); Color,Urine Yellow; Glucose,Urine (UA) Negative (Negative); Hyaline Casts,Urine 4 /lpf (0-2); Ketones,Urine 4+ (Negative); Leukocyte Esterase,Urine Negative (Negative); Mucus,Urine Moderate /hpf; Nitrite,Urine Negative (Negative); Protein,Urine 1+ (Negative); RBC,Urine 5 /hpf (0-5); Specific Gravity,Urine 1.029 (1.001-1.035); Squamous Epithelial Cell,Urine 3 /hpf (0-4); WBC,Urine 4 /hpf (0-5)
[2020-06-20 10:52] VITALS: BP 139/64; PULSE 60; RESP 17; TEMP 97.3
== END 2020-06-20 11:25 | disposition home or self-care (01) ==
LOC: EC 07:07
DX: U07.1 COVID-19 (principal); K21.9 Gastro-esophageal reflux disease without esophagitis; Z79.1 Long term (current) use of non-steroidal anti-inflammatories (NSAID)
CPT/HCPCS: 36415; 71045; 80053; 81001; 83605; 83735; 84484; 85025; 85610; 85730; 93005; 99284

== ENCOUNTER 2020-06-21 10:36 | Inpatient (IN) | payer MEDICARE, OTHER ==
[2020-06-21] MEDS ORDERED: SODIUM CHLORIDE 0.9% 1,000 ML IV STA (11:32)
[2020-06-21 11:53] LABS: Basophils % (A) 1 %; Eosinophils # (A) 0.1 k/uL (0-0.7); Eosinophils % (A) 1 %; HCT 43.6 % (34.0-46.0); HGB 14.9 gm/dL (11.4-16.0); Lymphocytes # (A) 0.8 k/uL (1.0-4.8); Lymphocytes % (A) 17 %; MCH 32.1 pg (25.0-35.0); MCHC 34.2 g/dL (31.0-37.0); MCV 93.8 fL (80.0-100.0); Mean Platelet Volume 7.1; Monocytes # (A) 0.2 k/uL (0-1.0); Monocytes % (A) 4 %; Neutrophils # (A) 3.6 k/uL (1.3-7.7); Neutrophils % (A) 76 %; Platelet Count 223 k/uL (150-450); RBC 4.65 m/uL (3.80-5.40); RDW 11.9 % (11.5-15.5); WBC 4.7 k/uL (3.8-10.6)
[2020-06-21 12:08] LABS: ALT 19 U/L (4-34); AST 45 U/L (14-36); African American GFR (CKD) >90 (>60 ml/min/1.73 sqM); Albumin 3.4 g/dL (3.5-5.0); Alkaline Phosphatase 68 U/L (38-126); Anion Gap 11 mmol/L; Blood Urea Nitrogen 12 mg/dL (7-17); Calcium 8.7 mg/dL (8.4-10.2); Carbon Dioxide 22 mmol/L (22-30); Chloride 109 mmol/L (98-107); Glucose 78 mg/dL (74-99); Magnesium 1.8 mg/dL (1.6-2.3); Non-African American GFR(CKD) >90 (>60 ml/min/1.73 sqM); Potassium 3.2 mmol/L (3.5-5.1); Sodium 142 mmol/L (137-145); Total Protein 6.1 g/dL (6.3-8.2)
--- NOTE | 2020-06-21 13:05 | ED ---
Recheck HPI - General Chief Complaint: Recheck/Abnormal Lab/Rx Stated Complaint: Covid+, headache Time Seen by Provider: 06/21/20 11:19 Source: patient Mode of arrival: wheelchair Limitations: physical limitation - History of Present Illness Initial Comments: Patient is a 74-year-old female presenting to emergency Department for recheck of dehydration from Covid. Patient was diagnosed with Covid 4 days ago, she did receive Covid antiviral therapy. Patient was then reevaluated yesterday for dehydration, fatigue. She was given fluids and sent home. Patient continues to be fatigued, body aches and low energy. Patient's daughter then spoke with wesly mcginnis's PCP who recommended going back to the ER for possible admission for dehydration. Patient states her appetite has been low and she is not able to drink very much. She denies having any fevers or chills, no chest pain, and only some mild shortness of breath. Patient has no further complaints at this time. Upon arrival to the ER, her vital signs are stable. - Related Data Home Medications Medication Instructions Recorded Confirmed Ibuprofen [Motrin Ib] 100 mg PO Q8H PRN 06/20/20 06/21/20 Allergies Allergy/AdvReac Type Severity Reaction Status Date / Time No Known Allergies Allergy Verified 06/21/20 12:04 Review of Systems ROS Statement: Those systems with pertinent positive or pertinent negative responses have been documented in the HPI. ROS Other: All systems not noted in ROS Statement are negative. Past Medical History Past Medical History: GERD/Reflux History of Any Multi-Drug Resistant Organisms: None Reported Past Surgical History: No Surgical Hx Reported Additional Past Surgical History / Comment(s): bilateral cataract surgery; right leg vein stripping Past Anesthesia/Blood Transfusion Reactions: No Reported Reaction Past Psychological History: Anxiety Smoking Status: Never smoker Past Alcohol Use History: None Reported Past Drug Use History: None Reported General Exam - General Exam Comments Initial Comments: GENERAL: Patient is well-developed and well-nourished. Patient is nontoxic and in no acute distress. HEAD: Atraumatic, normocephalic. EYES: Pupils equal round and reactive to light, extraocular movements intact, sclera anicteric, conjunctiva are normal. Eyelids were unremarkable. ENT: TMs normal, nares patent, oropharynx clear without exudates. Moist mucous membranes. NECK: Normal range of motion, supple without lymphadenopathy or JVD. LUNGS: Unlabored respirations. Breath sounds clear to auscultation bilaterally and equal. No wheezes rales or rhonchi. HEART: Regular rate and rhythm without murmurs, rubs or gallops. ABDOMEN: Soft, nontender, normoactive bowel sounds. No guarding, no rebound. No masses appreciated. : Deferred MUSCULOSKELETAL: Normal extremities with adequate strength and normal range of motion, no pitting or edema. No clubbing or cyanosis. NEUROLOGICAL: Patient is alert and oriented x 3. Motor and sensory are also intact. Cranial nerves II through XII grossly intact. Symmetrical smile. Normal speech, normal gait. PSYCH: Normal mood, normal affect. SKIN: Warm, Dry, normal turgor, no rashes or lesions noted. Limitations: physical limitation Course Vital Signs 06/21/20 10:41 Temperature 97.7 F Pulse Rate 71 Respiratory 20 Rate Blood Pressure 104/61 O2 Sat by Pulse 97 Oximetry Medical Decision Making - Medical Decision Making Patient is a 74-year-old female, diagnosed with Covid 4 days ago, did receive monoclonal antibody therapy, she was seen again yesterday for dehydration. She comes back today for a third visit for continued dehydration, fatigue and body aches. Vitals are stable. She's been afebrile. Her labs show a normal white count, potassium is low at 3.2, urine still shows 4+ ketones. Patient was given a liter bolus of fluids. Patient will be admitted for dehydration. I will of her some potassium, continue her on maintenance fluids. Patient accepted by Dr. Gonzalez. Case discussed with Dr. Rojas. - Lab Data Result diagrams: 06/21/20 11:46 06/21/20 11:46 Lab Results 06/21/20 06/21/20 06/21/20 Range/Units 11:46 11:46 11:46 WBC 4.7 (3.8-10.6) k/uL RBC 4.65 (3.80-5.40) m/uL Hgb 14.9 (11.4-16.0) gm/dL Hct 43.6 (34.0-46.0) % MCV 93.8 (80.0-100.0) fL MCH 32.1 (25.0-35.0) pg MCHC 34.2 (31.0-37.0) g/dL RDW 11.9 (11.5-15.5) % Plt Count 223 (150-450) k/uL MPV 7.1 Neutrophils % 76 % Lymphocytes % 17 % Monocytes % 4 % Eosinophils % 1 % Basophils % 1 % Neutrophils # 3.6 (1.3-7.7) k/uL Lymphocytes # 0.8 L (1.0-4.8) k/uL Monocytes # 0.2 (0-1.0) k/uL Eosinophils # 0.1 (0-0.7) k/uL Basophils # 0.0 (0-0.2) k/uL Sodium 142 (137-145) mmol/L Potassium 3.2 L (3.5-5.1) mmol/L Chloride 109 H (98-107) mmol/L Carbon Dioxide 22 (22-30) mmol/L Anion Gap 11 mmol/L BUN 12 (7-17) mg/dL Creatinine 0.55 (0.52-1.04) mg/dL Est GFR (CKD-EPI)AfAm >90 (>60 ml/min/1.73 sqM) Est GFR (CKD-EPI)NonAf >90 (>60 ml/min/1.73 sqM) Glucose 78 (74-99) mg/dL Plasma Lactic Acid Faraz 0.8 (0.7-2.0) mmol/L Calcium 8.7 (8.4-10.2) mg/dL Magnesium 1.8 (1.6-2.3) mg/dL Total Bilirubin 1.0 (0.2-1.3) mg/dL AST 45 H (14-36) U/L ALT 19 (4-34) U/L Alkaline Phosphatase 68 (38-126) U/L Total Protein 6.1 L (6.3-8.2) g/dL Albumin 3.4 L (3.5-5.0) g/dL Urine Color Urine Appearance (Clear) Urine pH (5.0-8.0) Ur Specific [place] (1.001-1.035) Urine Protein (Negative) Urine Glucose (UA) (Negative) Urine Ketones (Negative) Urine Blood (Negative) Urine Nitrite (Negative) Urine Bilirubin (Negative) Urine Urobilinogen (<2.0) mg/dL Ur Leukocyte Esterase (Negative) Urine RBC (0-5) /hpf Urine WBC (0-5) /hpf Ur Squamous Epith Cells (0-4) /hpf Urine Bacteria (None) /hpf Hyaline Casts (0-2) /lpf Urine Mucus (None) /hpf 06/21/20 Range/Units 12:59 WBC (3.8-10.6) k/uL RBC (3.80-5.40) m/uL Hgb (11.4-16.0) gm/dL Hct (34.0-46.0) % MCV (80.0-100.0) fL MCH (25.0-35.0) pg MCHC (31.0-37.0) g/dL RDW (11.5-15.5) % Plt Count (150-450) k/uL MPV Neutrophils % % Lymphocytes % % Monocytes % % Eosinophils % % Basophils % % Neutrophils # (1.3-7.7) k/uL Lymphocytes # (1.0-4.8) k/uL Monocytes # (0-1.0) k/uL Eosinophils # (0-0.7) k/uL Basophils # (0-0.2) k/uL Sodium (137-145) mmol/L Potassium (3.5-5.1) mmol/L Chloride (98-107) mmol/L Carbon Dioxide (22-30) mmol/L Anion Gap mmol/L BUN (7-17) mg/dL Creatinine (0.52-1.04) mg/dL Est GFR (CKD-EPI)AfAm (>60 ml/min/1.73 sqM) Est GFR (CKD-EPI)NonAf (>60 ml/min/1.73 sqM) Glucose (74-99) mg/dL Plasma Lactic Acid Faraz (0.7-2.0) mmol/L Calcium (8.4-10.2) mg/dL Magnesium (1.6-2.3) mg/dL Total Bilirubin (0.2-1.3) mg/dL AST (14-36) U/L ALT (4-34) U/L Alkaline Phosphatase (38-126) U/L Total Protein (6.3-8.2) g/dL Albumin (3.5-5.0) g/dL Urine Color Yellow Urine Appearance Clear (Clear) Urine pH 5.5 (5.0-8.0) Ur Specific [place] 1.021 (1.001-1.035) Urine Protein 1+ H (Negative) Urine Glucose (UA) Negative (Negative) Urine Ketones 4+ H (Negative) Urine Blood Small H (Negative) Urine Nitrite Negative (Negative) Urine Bilirubin Negative (Negative) Urine Urobilinogen <2.0 (<2.0) mg/dL Ur Leukocyte Esterase Negative (Negative) Urine RBC 3 (0-5) /hpf Urine WBC 3 (0-5) /hpf Ur Squamous Epith Cells 1 (0-4) /hpf Urine Bacteria Rare H (None) /hpf Hyaline Casts 19 H (0-2) /lpf Urine Mucus Occasional H (None) /hpf Disposition Clinical Impression: Dehydration, COVID-19 Disposition: ADMITTED IP TO THIS [facility] Condition: Stable Referrals: Randall Marinelli MD [Primary Care Provider] - 1-2 days Decision Date: 06/21/20 Decision Time: 13:38
[2020-06-21 13:24] LABS: Appearance,Urine Clear (Clear); Bacteria,Urine Rare /hpf; Bilirubin,Urine Negative (Negative); Blood,Urine Small (Negative); Color,Urine Yellow; Glucose,Urine (UA) Negative (Negative); Hyaline Casts,Urine 19 /lpf (0-2); Ketones,Urine 4+ (Negative); Leukocyte Esterase,Urine Negative (Negative); Mucus,Urine Occasional /hpf; Nitrite,Urine Negative (Negative); PH, Urine 5.5 (5.0-8.0); Protein,Urine 1+ (Negative); RBC,Urine 3 /hpf (0-5); Specific Gravity,Urine 1.021 (1.001-1.035); Squamous Epithelial Cell,Urine 1 /hpf (0-4); Urobilinogen,Urine <2.0 mg/dL (<2.0); WBC,Urine 3 /hpf (0-5)
[2020-06-21] MEDS ORDERED: POTASSIUM CHLORIDE ER 20 MEQ TAB.ER PO STA (13:33)
[2020-06-21] MEDS ORDERED: NALOXONE 0.4 MG/ML 1 ML VIAL IV PRN (13:41)
[2020-06-21] MEDS ORDERED: ONDANSETRON 4 MG/2 ML VIAL IVP PRN (13:42)
[2020-06-21] MEDS ORDERED: POTASSIUM BICARBONATE/CIT AC 20 MEQ TABLET.EFF PO ONE (13:45)
[2020-06-21] MEDS ORDERED: SODIUM CHLORIDE 0.9% 1,000 ML IV SCH (13:45)
--- NOTE | 2020-06-21 20:04 | XR ---
EXAMINATION TYPE: XR chest 1V portable DATE OF EXAM: 06/21/2020 COMPARISON: 06/20/2020 HISTORY: Short of breath TECHNIQUE: FINDINGS: Heart is normal. Lungs are clear of consolidation. There are no hilar masses. Costophrenic angles are clear. Bony thorax is intact. There is mild thoracic dextroscoliosis. IMPRESSION: No pulmonary consolidation or heart failure. There is clearing of mild subsegmental atele ctasis at the lung bases compared to yesterday.
[2020-06-21 20:25] LABS: C Reactive Protein 74.4 mg/L (<10.0)
[2020-06-21] MEDS ORDERED: HYDROcodone/APAP 5-325MG 1 EACH TAB PO PRN (20:34)
[2020-06-21] MEDS ORDERED: Magnesium Replacement Protocol 1 EACH MISC MISCELLANE PRN (20:39)
[2020-06-21] MEDS ORDERED: Potassium Replacement Protocol 1 EACH MISC MISCELLANE PRN (20:39)
[2020-06-21 21:16] LABS: INR 0.9 (<1.2)
[2020-06-21] MEDS: 0.9% NACL WITH KCL 40 MEQ/L 1,000 ML IV SCH (21:22)
[2020-06-21] MEDS: ENOXAPARIN 40 MG/0.4 ML SYRINGE SQ SCH (21:23)
[2020-06-21] MEDS: ASCORBIC ACID 500 MG TAB PO SCH (21:23)
[2020-06-21] MEDS: ALPRAZolam 0.25 MG TAB PO PRN (21:23)
[2020-06-21] MEDS: ACETAMINOPHEN TAB 325 MG TAB PO PRN (21:23)
[2020-06-21] MEDS: PANTOPRAZOLE 40 MG/10 ML VIAL IVP SCH (21:23)
[2020-06-21] MEDS: ZINC SULFATE 220 MG CAP PO SCH (21:23)
[2020-06-21] MEDS: CHOLECALCIFEROL 25 MCG (1000 IU) TABLET PO SCH (21:23)
--- NOTE | 2020-06-21 22:34 | HP ---
HISTORY AND PHYSICAL DATE OF SERVICE: 06/21/2020. CHIEF COMPLAINTS: Shortness of breath, Covid, headache and multiple symptomatology. HISTORY OF PRESENT ILLNESS: This 74-year-old woman with a past medical history of GERD, history of cataract surgery, being followed by Dr. Miller and Dr. Carlos Marinelli in the outpatient setting was noted to have Covid 19 about 4 days ago. The patient received Covid antibody treatment BAM combination. The patient again evaluated yesterday with dehydration and fatigue. Today patient had more shortness of breath, cough and chills and weakness. The patient came to ER and admitted for further evaluation and treatment. There is no history of any rigors, chills. No history of headache, loss of consciousness or seizures at this time. The chest x-ray which was done showed some clearing of the atelectasis and the patient pulse ox 97% on room air. There is no history of fever, rigors, chills at this time. PAST MEDICAL HISTORY: History of GERD, history of cataracts. MEDICATIONS: Home medications are Motrin p.r.n. ALLERGIES: None. FAMILY HISTORY: No history of heart disease or strokes in the family. SOCIAL HISTORY: No history of smoking. No history of alcohol. REVIEW OF SYSTEMS: ENT: No diminished vision. No diminished hearing. CARDIOVASCULAR: No angina. No palpitations. RESPIRATION as mentioned earlier. GI as mentioned earlier. : No dysuria or hematuria. NERVOUS SYSTEM: No numbness or weakness. ALLERGY/IMMUNOLOGY: No asthma or hayfever. MUSCULOSKELETAL as mentioned earlier. HEMATOLOGY/ONCOLOGY: No history of anemia. ENDOCRINE: No history of diabetes or hypothyroidism. CONSTITUTIONAL: As mentioned earlier. DERMATOLOGY: Negative. RHEUMATOLOGY: Negative. PSYCHIATRY: As mentioned earlier. PHYSICAL EXAMINATION: The patient is alert and oriented times three. Pulse 71, blood pressure 104/61, respiration 20, temperature 97.7, pulse ox 97% on room air. HEENT: Conjunctivae normal. NECK is no JVD. CARDIOVASCULAR: S1, S2 muffled. RESPIRATION: Breath sounds diminished in the bases. A few rhonchi. ABDOMEN: Soft, nontender. No mass palpable. LEGS: No edema. No swelling. NERVOUS SYSTEM: Higher functions as mentioned earlier. Moves all 4 limbs. No focal motor or sensory deficits. LYMPHATICS: No lymph nodes palpable in the neck, axillae or groin. SKIN: No ulcer, no rash and no bleeding. JOINTS: No active deforming arthropathy. LABS: CBC within normal limits. Sodium 143, potassium 3.2, AST is 45 and CRP 74.4. UA noted. 4+ ketones. ASSESSMENT: 1. Acute Covid 19 infection with severe dehydration with failure of outpatient treatment. 2. Acute anuria. 3. Hypokalemia. 4. Increased inflammatory markers of Covid 19 with increased CRP. 5. Elevated AST, possibly secondary to Covid 19. 6. History of gastroesophageal reflux disease. 7. History of anxiety. 8. History of cataract surgery. 9. History of right leg venous stripping. 10.FULL CODE. RECOMMENDATIONS AND DISCUSSION: In this 74-year-old woman who presented with multiple complex medical issues. We will monitor the patient closely. Supplement potassium. Supplement magnesium. I would also recommend IV fluids, symptomatic treatment, D-dimer. Basic labs. If the D-dimer is positive, I would recommend a CT angio of the chest. Otherwise, we will follow the patient closely. Copy of this dictation is being forwarded to Dr. Miller, Dr. Carlos Marinelli. The prognosis extremely guarded because of multiple complex medical issues and acute Covid 19 infection as mentioned earlier. MMODL / IJN: [id number] /
[2020-06-22] MEDS: CHOLECALCIFEROL 25 MCG (1000 IU) TABLET PO SCH (08:04)
[2020-06-22] MEDS: ASCORBIC ACID 500 MG TAB PO SCH (08:04)
[2020-06-22] MEDS: ZINC SULFATE 220 MG CAP PO SCH (08:04)
[2020-06-22] MEDS: ENOXAPARIN 40 MG/0.4 ML SYRINGE SQ SCH (08:05)
[2020-06-22] MEDS: ALPRAZolam 0.25 MG TAB PO PRN (08:05)
[2020-06-22] MEDS: PANTOPRAZOLE 40 MG/10 ML VIAL IVP SCH ×2 (08:05→21:21)
[2020-06-22 08:56] LABS: Basophils # (A) 0.01 X 10*3/uL (0.00-0.10); Basophils % (A) 0.3 %; Eosinophils # (A) 0.05 X 10*3/uL (0.04-0.35); Eosinophils % (A) 1.4 %; HGB 12.5 g/dL (12.0-15.0); Lymphocytes # (A) 1.49 X 10*3/uL (0.90-5.00); Lymphocytes % (A) 42.1 %; MCH 31.2 pg (27.0-32.0); MCHC 32.9 g/dL (32.0-37.0); MCV 94.8 fL (80.0-97.0); Mean Platelet Volume 9.8 fL (9.5-12.2); Monocytes # (A) 0.24 X 10*3/uL (0.20-1.00); Monocytes % (A) 6.8 %; Neutrophils # (A) 1.74 X 10*3/uL (1.80-7.70); Neutrophils % (A) 49.1 %; Platelet Count 194 X 10*3/uL (140-440); RBC 4.01 X 10*6/uL (4.10-5.20); RDW 11.9 % (11.5-14.5); WBC 3.54 X 10*3/uL (4.50-10.00)
[2020-06-22 11:26] LABS: African American GFR (CKD) 109.7 (60.0-200.0); Anion Gap 8.1 mmol/L (4.00-12.00); Calcium 8.3 mg/dL (8.7-10.3); Carbon Dioxide 22.9 mmol/L (21.6-31.8); Magnesium 1.4 mg/dL (1.5-2.4); Non-African American GFR(CKD) 94.7 (60.0-200.0); Potassium 3.1 mmol/L (3.5-5.5)
[2020-06-22] MEDS: MULTIVITAMINS, THERA 1 EACH TAB PO SCH (12:11)
[2020-06-22] MEDS: THIAMINE 100 MG TAB PO SCH (12:12)
[2020-06-22] MEDS: FOLIC ACID 1 MG TAB PO SCH (12:12)
[2020-06-22] MEDS: 0.9% NACL WITH KCL 40 MEQ/L 1,000 ML IV SCH (13:03)
[2020-06-22] MEDS ORDERED: Potassium Replacement Protocol 1 EACH MISC MISCELLANE PRN (17:12)
[2020-06-22] MEDS ORDERED: Magnesium Replacement Protocol 1 EACH MISC MISCELLANE PRN ×2 (17:12→21:18)
[2020-06-22 18:24] LABS: ALT 16 U/L (4-34); AST 33 U/L (14-36); African American GFR (CKD) >90 (>60 ml/min/1.73 sqM); Albumin/Globulin Ratio 1.2; Alkaline Phosphatase 62 U/L (38-126); Anion Gap 10 mmol/L; Blood Urea Nitrogen 4 mg/dL (7-17); Calcium 8.4 mg/dL (8.4-10.2); Carbon Dioxide 20 mmol/L (22-30); Chloride 109 mmol/L (98-107); Globulin 2.6 g/dL; Glucose 69 mg/dL (74-99); Non-African American GFR(CKD) >90 (>60 ml/min/1.73 sqM); Potassium 3.4 mmol/L (3.5-5.1); Sodium 139 mmol/L (137-145); Total Bilirubin 0.8 mg/dL (0.2-1.3); Total Protein 5.6 g/dL (6.3-8.2)
--- NOTE | 2020-06-22 19:08 | CT ---
EXAMINATION TYPE: CT angio chest DATE OF EXAM: 06/22/2020 6:51 PM COMPARISON: Radiograph 06/21/2020. CT 10/29/2009. HISTORY: Elevated d-dimer, +covid. CT DLP: 219.9 mGycm Automated exposure control for dose reduction was used. CONTRAST: CTA scan of the thorax is performed with IV Contrast, patient injected with 49ml mL of Isovue 370, pu lmonary embolism protocol. MIP images are created and reviewed. FINDINGS: LUNGS: There are bilateral scattered moderate patchy groundglass opacities throughout the lungs most pronounced in the right lower lobe. There is trace right pleural effusion. No pneumothorax. MEDIASTINUM: There is satisfactory enhancement of the pulmonary artery and its branches, there is no CT evidence for pulmonary embolism. There are no greater than 1 cm hilar or mediastinal lymph nodes. No pericardial effusion is seen. OTHER: Small pericholecystic fluid without cholelithiasis. IMPRESSION: SCATTERED PATCHY GROUND GLASS OPACITIES, CONSISTENT WITH HISTORY OF COVID PNEUMONIA. NO ACUTE PE. Nonspecific small pericholecystic fluid without cholelithiasis, can be seen with fluid overload. Acal culous cholecystitis cannot be excluded.
[2020-06-22] MEDS: POTASSIUM CHLORIDE ER 20 MEQ TAB.ER PO SCH ×2 (19:39→21:19)
--- NOTE | 2020-06-22 19:42 | PN ---
PROGRESS NOTE DATE OF SERVICE: 06/22/2020 This 74-year-old woman who was admitted with shortness of breath and COVID-19 infection had failure of outpatient treatment. The patient had severe dehydration. A chest x- ray which was reviewed personally by me showed some subsegmental atelectasis. D-dimer was also found to be elevated at 0.86. Potassium is 3.1. I will obtain a CT angio of the chest. Past medical history reviewed. REVIEW OF SYSTEMS: CARDIOVASCULAR SYSTEM: No angina, palpitations. RESPIRATORY SYSTEM: As mentioned earlier. GI: As mentioned earlier. : No dysuria or retention. NERVOUS SYSTEM: No numbness, weakness. CURRENT MEDICATIONS: Reviewed. They include Tylenol, [place], vitamin C, vitamin D3, Lovenox. Doses are reviewed. PHYSICAL EXAMINATION: Patient alert and oriented x3. Pulse 64, blood pressure 120/70, respirations 16, temperature 98.1, pulse ox 97% on room air. HEENT: Conjunctivae normal. NECK: No jugular venous distention. CARDIOVASCULAR SYSTEM: S1, S2 muffled. RESPIRATORY SYSTEM: Breath sounds diminished at the bases. A few scattered rhonchi. ABDOMEN: Soft. NERVOUS SYSTEM: No focal deficit. LABS: WBC 3.5 and sodium is 142, potassium 3.1. ASSESSMENT: 1. Acute COVID-19 infection with severe dehydration with failure of outpatient treatment. 2. Elevated D-dimer. Rule out pulmonary embolism. 3. Hypokalemia. 4. Increased inflammatory markers of COVID-19 with increased CRP. 5. Elevated AST, possibly secondary to COVID-19 hepatitis. 6. History of gastroesophageal reflux disease. 7. History of anxiety. 8. History of cataract surgery. 9. History of right leg venous stripping. 10.Hypomagnesemia. 11.FULL CODE. RECOMMENDATIONS AND DISCUSSION: I recommend to continue current medications, continue with the monitoring, symptomatic treatment. Patient is also mildly hypoglycemic. Will add dexamethasone to the current regimen and continue the IV fluids. Encourage diet. The prognosis is guarded because of multiple complex medical problems. Further recommendations to follow. See orders for further details. MMODL / IJN: [id number] /
[2020-06-22 20:50] LABS: Glucose,Whole Blood 60 mg/dL (75-99)
[2020-06-22] MEDS ORDERED: POTASSIUM CHLORIDE ER 20 MEQ TAB.ER PO SCH (21:15)
[2020-06-22 21:19] LABS: Glucose,Whole Blood 73 mg/dL (75-99)
[2020-06-22] MEDS: D5-0.9% NACL WITH KCL 40 MEQ/L 1,000 ML IV SCH (22:01)
[2020-06-22] MEDS: MAGNESIUM SULFATE-D5W PMX 1 GM in DEXTROSE/WATER 1 100ML.BAG IVPB SCH ×2 (22:02→23:26)
[2020-06-23] MEDS: MAGNESIUM SULFATE-D5W PMX 1 GM in DEXTROSE/WATER 1 100ML.BAG IVPB SCH (00:32)
[2020-06-23 05:38] LABS: Basophils % (A) 0 %; Eosinophils % (A) 1 %; HCT 37.8 % (34.0-46.0); HGB 13.1 gm/dL (11.4-16.0); Lymphocytes # (A) 1.1 k/uL (1.0-4.8); Lymphocytes % (A) 37 %; MCH 32.4 pg (25.0-35.0); MCHC 34.7 g/dL (31.0-37.0); MCV 93.2 fL (80.0-100.0); Mean Platelet Volume 7.2; Monocytes # (A) 0.2 k/uL (0-1.0); Monocytes % (A) 6 %; Neutrophils # (A) 1.6 k/uL (1.3-7.7); Neutrophils % (A) 55 %; Platelet Count 232 k/uL (150-450); RBC 4.05 m/uL (3.80-5.40); RDW 12.1 % (11.5-15.5); WBC 2.9 k/uL (3.8-10.6)
--- NOTE | 2020-06-23 06:32 | CONS ---
CONSULTATION DATE OF SERVICE: 06/22/2020 REASON FOR CONSULTATION: COVID-19 infection. HISTORY OF PRESENT ILLNESS: The patient is a 74-year-old female who was diagnosed with COVID-19 on May for which the patient was given monoclonal antibodies and subsequently discharged home. The patient presented back to the ER on June 20 with symptoms of weakness and difficulty getting up and around and dehydration. The patient was hydrated and subsequently discharge back home. The patient presented back to the ER a third time yesterday for recheck of dehydration from COVID: The patient has been complaining of feeling fatigued, weak and no energy. The patient has been complaining of no appetite. The patient denies having any chest pain, shortness of breath or cough. Some nausea and decreased oral intake. No abdominal pain or any diarrhea. With these symptoms, the patient has been evaluated by the ER physician. On arrival to the ER, the patient was afebrile. The patient was not hypoxic. She is 97-96% on room air. The patient did have leukopenia. No lymphopenia. Creatinine was normal. CRP 74. Procalcitonin was normal. The patient did have a chest x-ray, no pulmonary consolidation or heart failure was seen. Clearing of mild subsegmental atelectasis. Subsequently the patient did have a CT angiogram of the chest that was negative for PE, but showed scattered patchy ground-glass opacities consistent with history of COVID. The patient has been admitted to the hospital. Infectious Disease was consulted for further. REVIEW OF SYSTEMS: Positive points have been mentioned in HPI. Rest of systems are negative. PAST MEDICAL HISTORY: Gastroesophageal reflux disease, anxiety. PAST SURGICAL HISTORY: Bilateral cataract surgery, right leg venous stripping. SOCIAL HISTORY: No history of smoking, drinking or drug use. FAMILY HISTORY: No pertinent findings noticed. ALLERGIES: No known drug allergies. MEDICATIONS: The patient is currently on Tylenol, [place], Xanax, vitamin C, vitamin D3, Lovenox, magnesium sulfate, Theragran, Narcan, Zofran, Protonix, B1 and zinc. PHYSICAL EXAMINATION: VITAL SIGNS: Blood pressure 125/70 with a pulse of 73, temperature 98.3, he is 96% on room air. GENERAL DESCRIPTION: Patient is a middle-aged female lying in bed in no distress. No tachypnea or accessory muscles of respiration use. HEENT: Examination shows no pallor or scleral icterus. Oral mucous membrane is dry. NECK: Trachea central, no thyromegaly. LUNGS: Unlabored breathing, clear to auscultation anteriorly. No wheeze or crackle. HEART: S1-S2, regular rate and rhythm. ABDOMEN: Soft, no tenderness. No guarding or rigidity. EXTREMITIES: No edema of the feet. SKIN: No rash or mass palpable. NEUROLOGICAL: Patient is awake, alert, oriented times three. Mood and affect normal. LABS: Hemoglobin is 12.4, white count 3.54, BUN of 4, creatinine 0.47. CRP mildly elevated. DIAGNOSTIC IMPRESSION: Patient with acute COVID-19 infection, mild illness. This patient has already received monoclonal antibodies. Patient currently does not have any hypoxemia. No leukopenia and no evidence of any secondary bacterial pneumonia. PLAN: 1. Treatment will be supportive with no need for remdesivir or steroids. 2. Lovenox, zinc and ascorbic acid. 3. Gentle IV fluid. 4. We will follow on clinical condition and further adjust medication if needed. Thank you for this consultation. Will follow this patient along with you. MMODL / IJN: [id number] /
[2020-06-23 09:52] LABS: African American GFR (CKD) >90 (>60 ml/min/1.73 sqM); Anion Gap 7 mmol/L; Blood Urea Nitrogen 3 mg/dL (7-17); Calcium 7.9 mg/dL (8.4-10.2); Carbon Dioxide 18 mmol/L (22-30); Chloride 111 mmol/L (98-107); Glucose 139 mg/dL (74-99); Non-African American GFR(CKD) >90 (>60 ml/min/1.73 sqM); Potassium 3.5 mmol/L (3.5-5.1); Sodium 136 mmol/L (137-145)
[2020-06-23] MEDS: ENOXAPARIN 40 MG/0.4 ML SYRINGE SQ SCH (10:16)
[2020-06-23] MEDS: CHOLECALCIFEROL 25 MCG (1000 IU) TABLET PO SCH (10:16)
[2020-06-23] MEDS: PANTOPRAZOLE 40 MG/10 ML VIAL IVP SCH ×2 (10:16→20:16)
[2020-06-23] MEDS: ZINC SULFATE 220 MG CAP PO SCH (10:19)
[2020-06-23] MEDS: ASCORBIC ACID 500 MG TAB PO SCH (10:19)
[2020-06-23] MEDS ORDERED: Potassium Replacement Protocol 1 EACH MISC MISCELLANE PRN (10:47)
[2020-06-23] MEDS ORDERED: Magnesium Replacement Protocol 1 EACH MISC MISCELLANE PRN (10:47)
[2020-06-23] MEDS: D5-0.9% NACL WITH KCL 40 MEQ/L 1,000 ML IV SCH (12:57)
[2020-06-23] MEDS: FOLIC ACID 1 MG TAB PO SCH (13:07)
[2020-06-23] MEDS: MULTIVITAMINS, THERA 1 EACH TAB PO SCH (13:07)
[2020-06-23] MEDS: THIAMINE 100 MG TAB PO SCH (13:07)
--- NOTE | 2020-06-23 13:55 | PN ---
PROGRESS NOTE DATE OF SERVICE: 06/23/2020 REASON FOR FOLLOWUP: COVID-19 infection. INTERVAL HISTORY: The patient is currently afebrile. The patient mentioned she is feeling much better. She is currently on room air, saturating 97%. Denies having any chest pain, shortness of breath or cough. No abdominal pain or diarrhea. PHYSICAL EXAMINATION: Blood pressure 110/67, pulse of 77, temperature 97.7. She is 97% on room air. General description is an elderly female up in the room in no distress. RESPIRATORY SYSTEM: Unlabored breathing, decreased intensity of breath sounds. No wheeze. HEART: S1, S2. Regular rate and rhythm. ABDOMEN: Soft, no tenderness. LABS: Hemoglobin 13.1, white count 2.9, BUN of 3, creatinine 0.45. DIAGNOSTIC IMPRESSION AND PLAN: Patient with acute COVID-19 pneumonia, mild infection in this patient who showed overall improvement. Currently not hypoxic. Recommending supportive treatment only. Currently with vitamin C, zinc, and Lovenox. No need for steroids. Continue supportive care. MMODL / IJN: [id number] /
[2020-06-23] MEDS: ALPRAZolam 0.25 MG TAB PO PRN (20:16)
--- NOTE | 2020-06-23 22:46 | PN ---
PROGRESS NOTE DATE OF SERVICE: 06/23/2020 This 74-year-old woman who was admitted with acute COVID-19 bilateral pneumonia has severe dehydration, also. Chest CTA showed extensive bilateral lesions. Multiple consultants are following the patient closely at this time. The patient also has some acidosis. The patient also had leukopenia. Past medical history reviewed. REVIEW OF SYSTEMS: CARDIOVASCULAR SYSTEM: No angina, palpitations. RESPIRATORY SYSTEM: As mentioned earlier. GI: As mentioned earlier. : No dysuria or retention. NERVOUS SYSTEM: No numbness, weakness. CURRENT MEDICATIONS: Reviewed. They include Tylenol, [place], Xanax, vitamin C, folic acid, multivitamins, Narcan and D5 drip. PHYSICAL EXAMINATION: Patient is alert, oriented x2. Pulse 77, blood pressure 130/60, respiration 18, temperature 97.8, pulse ox 97% on room air. HEENT: Conjunctivae normal. NECK: No jugular venous distention. CARDIOVASCULAR SYSTEM: S1, S2 muffled. RESPIRATORY SYSTEM: Breath sounds diminished at the bases. A few scattered rhonchi and crackles. ABDOMEN: Soft, non-tender. NERVOUS SYSTEM: No focal deficit. LABS: Sodium 136, potassium 3.5 and glucose noted. ASSESSMENT: 1. Acute COVID-19 infection with severe dehydration with failure of outpatient treatment. 2. Acute bilateral COVID-19 interstitial pneumonia. 3. Hypoglycemia. 4. Elevated D-dimer with no evidence of any pulmonary embolism. 5. Cholelithiasis. 6. Hypokalemia. 7. Increased inflammatory markers of COVID-19. 8. Elevated AST, possibly secondary to COVID-19 hepatitis. 9. History of gastroesophageal reflux disease. 10.History of anxiety. 11.History of cataract surgery. 12.History of right leg deep vein thrombosis. 13.Hypomagnesemia. 14.FULL CODE. RECOMMENDATIONS AND DISCUSSION: I recommend to continue current medications, continue with the monitoring, symptomatic treatment. The patient's serum procalcitonin is normal at this time. Continue to monitor. I would also recommend repeat labs and D5 to be continued. Potassium and magnesium replacement protocols. Otherwise, I would also recommend a surgical evaluation for cholelithiasis possibly as an outpatient. Followup otherwise closely. Monitor with Infectious Disease. Further recommendations to follow. MMODL / IJN: [id number] /
[2020-06-24] MEDS: D5-0.9% NACL WITH KCL 40 MEQ/L 1,000 ML IV SCH ×2 (01:19→11:15)
--- NOTE | 2020-06-24 09:29 | US ---
EXAMINATION TYPE: US gallbladder DATE OF EXAM: 06/24/2020 COMPARISON: NONE CLINICAL HISTORY: Cholecystitis. EXAM MEASUREMENTS: Liver Length: 12.9 cm Gallbladder Wall: 0.4 cm CBD: 0.4 cm Right Kidney: 10.0 x 3.5 x 4.3 cm Extensive overlying bowel gas, technically difficult, limited study. Pancreas: Obscured by bowel gas Liver: limited views appear wnl Gallbladder: sludge, thickened wall, probable cholecystic fluid Evidence for sonographic Raines's sign: no CBD: wnl Right Kidney: ?mild hydronephrosis IMPRESSION: 1. Gallbladder sludge with thickened gallbladder wall. Correlate for cholecystitis. 2. Findings suggest mild right hydronephrosis.
[2020-06-24] MEDS ORDERED: Magnesium Replacement Protocol 1 EACH MISC MISCELLANE PRN (11:02)
[2020-06-24] MEDS: CHOLECALCIFEROL 25 MCG (1000 IU) TABLET PO SCH (11:17)
[2020-06-24] MEDS: ASCORBIC ACID 500 MG TAB PO SCH (11:17)
[2020-06-24] MEDS: FOLIC ACID 1 MG TAB PO SCH (11:17)
[2020-06-24] MEDS: ENOXAPARIN 40 MG/0.4 ML SYRINGE SQ SCH (11:17)
[2020-06-24] MEDS: ZINC SULFATE 220 MG CAP PO SCH (11:17)
[2020-06-24] MEDS: THIAMINE 100 MG TAB PO SCH (11:17)
[2020-06-24] MEDS: MULTIVITAMINS, THERA 1 EACH TAB PO SCH (11:17)
[2020-06-24] MEDS: PANTOPRAZOLE 40 MG/10 ML VIAL IVP SCH ×2 (11:18→22:23)
[2020-06-24] MEDS: MAGNESIUM SULFATE-D5W PMX 1 GM in DEXTROSE/WATER 1 100ML.BAG IVPB SCH ×2 (11:36→12:42)
--- NOTE | 2020-06-24 11:39 | NM ---
EXAMINATION TYPE: NM hepatobiliary w CCK DATE OF EXAM: 06/24/2020 COMPARISON: NONE HISTORY: Cholecystitis TECHNIQUE: After the intravenous administration of 4.61 mCi Tc 99m Mebrofenin hepatobiliary scintigra phy is performed. Immediate images post injection. FINDINGS: There is satisfactory initial accumulation of tracer by the liver. The gallbladder is visualized wit hin 18 minutes. The small bowel activity is noted within 26 minutes. At one hour CCK was administer ed, patient was injected with 1.3 mcg of Kinevac, and gallbladder ejection fraction is calculated at 55 %, in the normal range. Therefore there is no scintigraphic evidence of cystic or common bile antonina t obstruction to suggest acute cholecystitis or gallbladder dyskinesia. IMPRESSION: Exam is within normal limits.
[2020-06-24] MEDS ORDERED: LOPERAMIDE 2 MG CAP PO PRN (12:51)
--- NOTE | 2020-06-24 14:24 | P.GSCN ---
History of Present Illness Consult date: 06/24/20 History of present illness: CHIEF COMPLAINT: Shortness of breath HISTORY OF PRESENT ILLNESS: This is a 74-year-old female with a known history of GERD and anxiety. Patient was diagnosed with Covid in the outpatient setting. She came into the ER on 06/21/2020 with dehydration and fatigue. Patient did receive Covid antibody treatment. She came back into the ER for dehydration and fatigue. She was complaining of shortness of breath, cough chills and weakness. Computed tomography scan of the chest have been completed showing scattered patchy groundglass opacities consistent with history of Covid pneumonia. No evidence of acute PE. Nonspecific small pericholecystic fluid without cholelithiasis was noted and can be seen with fluid overload. Acalculous chol ecystitis cannot be excluded. Therefore surgical consult was placed in regards to the small pericholecystic fluid around the gallbladder. HIDA scan was ordered which did show a normal ejection fraction of 55%. Ultrasound the gallbladder had shown sludge with gallbladder wall thickening. Patient denies any abdominal pain. Denies any nausea or vomiting. Denies any pain after eating. PAST MEDICAL HISTORY: See list. PAST SURGICAL HISTORY: See list. MEDICATIONS: See list. ALLERGIES: See list. SOCIAL HISTORY: No illicit drug use. REVIEW OF SYSTEMS: CONSTITUTIONAL: Denies fever or chills. HEENT: Denies blurred vision, vision changes, or eye pain. Denies hemoptysis CARDIOVASCULAR: Denies chest pain or pressure. RESPIRATORY: No shortness of breath. GASTROINTESTINAL: See HPI for pertinent findings HEMATOLOGIC: Denies bleeding disorders. GENITOURINARY: Denies any blood in urine or increased urinary frequency. SKIN: Denies pruitis. Denies rash. PHYSICAL EXAM: VITAL SIGNS: Reviewed GENERAL: Well-developed in no acute distress. HEENT: No sclera icterus. Extraocular movements grossly intact. Moist buccal mucosa. Head is atraumatic, normocephalic. No nasal drainage. ABDOMEN: Soft. Nondistended. Nontender NEUROLOGIC: Alert and oriented. Cranial nerves II through XII grossly intact. LABORATORY DATA: WBC 2.9 Hgb 13.1 platelets 232 sodium 136 potassium 3.5 creatinine 0.45 magnesium 1.9 IMAGING: computed tomography scan of the chest have been completed showing scattered patchy groundglass opacities consistent with history of Covid pneumonia. No evidence of acute PE. Nonspecific small pericholecystic fluid without cholelithiasis was noted and can be seen with fluid overload. Acalculous cholecystitis cannot be excluded. HIDA scan was ordered which did show a normal ejection fraction of 55%. Ultrasound the gallbladder had shown sludge with gallbladder wall thickening. ASSESSMENT: 1. Covid 19 pneumonia 2. Chronic cholecystitis PLAN: -Recommend outpatient laparoscopic cholecystectomy -No surgical intervention planned during hospitalization -Recommend low-fat diet -Continue supportive care -We'll have patient follow-up with Dr. Lopez in 1 week Physician Advanced Manufacturing Consultant note has been reviewed by physician. Signing provider agrees with the documented findings, assessment, and plan of care. Past Medical History Past Medical History: GERD/Reflux History of Any Multi-Drug Resistant Organisms: None Reported Past Surgical History: No Surgical Hx Reported Additional Past Surgical History / Comment(s): bilateral cataract surgery; right leg vein stripping Past Anesthesia/Blood Transfusion Reactions: No Reported Reaction Past Psychological History: Anxiety Smoking Status: Never smoker Past Alcohol Use History: None Reported Past Drug Use History: None Reported Medications and Allergies Home Medications Medication Instructions Recorded Confirmed Type Ibuprofen [Motrin Ib] 100 mg PO Q8H PRN 06/20/20 06/21/20 History Allergies Allergy/AdvReac Type Severity Reaction Status Date / Time No Known Allergies Allergy Verified 06/21/20 12:04 Surgical - Exam Vital Signs Temp Pulse Resp BP Pulse Ox 97.7 F 71 20 104/61 97 06/21/20 10:41 06/21/20 10:41 06/21/20 10:41 06/21/20 10:41 06/21/20 10:41 Results - Labs 06/23/20 05:00 06/23/20 05:00
--- NOTE | 2020-06-24 18:24 | PN ---
PROGRESS NOTE DATE OF SERVICE: 06/24/2020 This 74-year-old woman was admitted with acute COVID-19 bilateral pneumonia, dehydration, being closely monitored at this time. The patient had extensive bilateral lesions. The patient also has significant diarrhea. Gallbladder ultrasound was done which showed gallbladder sludge and as well as thickened gallbladder wall. Some mild right hydronephrosis also noted. Hepatobiliary scan was within normal limits. PAST MEDICAL HISTORY: Reviewed. REVIEW OF SYSTEMS: CARDIOVASCULAR SYSTEM: No angina. RESPIRATORY SYSTEM: As mentioned earlier. GI: As mentioned earlier. : No dysuria. NERVOUS SYSTEM: No numbness or weakness. MEDICATIONS: Current medications are reviewed and include Tylenol, [place], Xanax, vitamin C, vitamin D3, Lovenox, folic acid, Imodium, p.r.n. medications. PHYSICAL EXAMINATION: The patient is alert and oriented x3. Pulse 83, blood pressure 118/71, respiration 20, temperature 97.6, pulse ox 96% on room air. HEENT: Conjunctivae normal. NECK: No jugular venous distention. CARDIOVASCULAR: S1, S2 muffled. RESPIRATORY: Breath sounds diminished at the bases. A few scattered rhonchi. ABDOMEN: Soft, nontender. LEGS: No edema. NERVOUS SYSTEM: No focal deficits. LABS: WBC 2.9, hemoglobin 13.1, sodium 136. Other labs are noted. Glucose is 60. ASSESSMENT: 1. Acute COVID-19 infection with severe dehydration, failure of outpatient treatment. 2. Acute COVID-19 interstitial pneumonia. 3. Hypoglycemia. 4. Diarrhea continued possibly secondary to COVID-19. 5. Gallbladder sludge and thickened gallbladder wall, possible cholecystitis. 6. Increased D-dimer with no evidence of pulmonary embolism. 7. Cholelithiasis, possibly. 8. Hypokalemia. 9. Increased inflammatory markers of COVID-19. 10.Elevated AST, possibly secondary to COVID-19 and hepatitis. 11.History of gastroesophageal reflux disease. 12.History of anxiety. 13.History of cataract surgery. 14.History of right leg deep vein thrombosis. 15.Hypomagnesemia. 16.Leukopenia. 17.FULL CODE. RECOMMENDATIONS AND DISCUSSION: Recommend to continue current medications, continue symptomatic treatment. Otherwise, at this time I recommend continue with the current antibiotics. Otherwise I would also recommend set of blood cultures and continue to monitor. The patient is afebrile at this time. Closely follow with Infectious Disease and Surgery. Prognosis guarded. Further recommendations to follow. MMODL / IJN: [id number] /
--- NOTE | 2020-06-24 23:19 | PN ---
PROGRESS NOTE DATE OF SERVICE: 06/24/2020 REASON FOR FOLLOWUP: 1. Covid 19 infection. 2. Question of abnormal ultrasound, question of cholecystitis. INTERVAL HISTORY: Patient is currently afebrile. Patient is breathing comfortably. The patient remains to be on room air, sating about 96%. The patient denies chest pain, shortness of breath or cough. No abdominal pain. No diarrhea. PHYSICAL EXAMINATION: Blood pressure 106/66, pulse of 91, temperature 97.8. She is 96% on room air. General description is an elderly female up in the room in no distress. Respiratory system: Unlabored breathing, clear to auscultation anteriorly. Heart S1, S2. Regular rate and rhythm. ABDOMEN: Soft, no tenderness. LABS: BUN of 4, creatinine 0.47. Hemoglobin is 13.1, white count 2.9. Ultrasound suspicious for cholecystitis. HIDA scan came back negative. DIAGNOSTIC IMPRESSION AND PLAN: 1. Patient admitted to the hospital with COVID-19 infection in this patient with no hypoxemia. Did not qualify for Remdesivir therapy or steroids. Currently on Lovenox, zinc and ascorbic acid to continue. 2. Patient with abnormal ultrasound, suspicion for cholecystitis, has been ruled out with negative HIDA scan. Patient with no tenderness right upper quadrant area. No fever or elevated white count, elevated liver enzymes. Clinically not behaving as cholecystitis. No need for systemic antibiotic therapy. MMODL / IJN: [id number] /
[2020-06-25] MEDS: D5-0.9% NACL WITH KCL 40 MEQ/L 1,000 ML IV SCH ×2 (02:01→10:59)
[2020-06-25 06:40] LABS: Basophils % (A) 0 %; Eosinophils # (A) 0.1 k/uL (0-0.7); Eosinophils % (A) 2 %; HCT 36.7 % (34.0-46.0); HGB 12.4 gm/dL (11.4-16.0); Lymphocytes % (A) 25 %; MCH 31.2 pg (25.0-35.0); MCHC 33.7 g/dL (31.0-37.0); MCV 92.5 fL (80.0-100.0); Mean Platelet Volume 7.1; Monocytes # (A) 0.3 k/uL (0-1.0); Monocytes % (A) 7 %; Neutrophils # (A) 2.5 k/uL (1.3-7.7); Neutrophils % (A) 64 %; Platelet Count 345 k/uL (150-450); RBC 3.97 m/uL (3.80-5.40); RDW 12.4 % (11.5-15.5); WBC 3.8 k/uL (3.8-10.6)
[2020-06-25 06:48] LABS: African American GFR (CKD) >90 (>60 ml/min/1.73 sqM); Anion Gap 2 mmol/L; Blood Urea Nitrogen <2 mg/dL (7-17); Calcium 7.8 mg/dL (8.4-10.2); Carbon Dioxide 24 mmol/L (22-30); Chloride 112 mmol/L (98-107); Glucose 108 mg/dL (74-99); Non-African American GFR(CKD) >90 (>60 ml/min/1.73 sqM); Potassium 3.7 mmol/L (3.5-5.1); Sodium 138 mmol/L (137-145)
[2020-06-25] MEDS: PANTOPRAZOLE 40 MG/10 ML VIAL IVP SCH (10:56)
[2020-06-25] MEDS: ENOXAPARIN 40 MG/0.4 ML SYRINGE SQ SCH (10:57)
[2020-06-25] MEDS: CHOLECALCIFEROL 25 MCG (1000 IU) TABLET PO SCH (10:57)
[2020-06-25] MEDS: ZINC SULFATE 220 MG CAP PO SCH (10:58)
[2020-06-25] MEDS: FOLIC ACID 1 MG TAB PO SCH (10:58)
[2020-06-25] MEDS: ASCORBIC ACID 500 MG TAB PO SCH (10:58)
[2020-06-25] MEDS: THIAMINE 100 MG TAB PO SCH (10:58)
[2020-06-25] MEDS: MULTIVITAMINS, THERA 1 EACH TAB PO SCH (10:58)
[2020-06-25 11:51] VITALS: BMI 27.3
--- NOTE | 2020-06-25 13:48 | P.PN ---
Subjective Progress Note Date: 06/25/20 CHIEF COMPLAINT: Shortness of breath HISTORY OF PRESENT ILLNESS: Surgical service is following for patient's chronic cholecystitis. She is admitted to hospital with [place] 19 pneumonia and dehydration. Patient denies any abdominal pain. Denies any nausea or vomiting. She is tolerating low-fat diet. Patient did report diarrhea. Afebrile. WBC 3.8. PHYSICAL EXAM: VITAL SIGNS: Reviewed. GENERAL: Well-developed in no acute distress. HEENT: No sclera icterus. Extraocular movements grossly intact. Moist buccal mucosa. Head is atraumatic, normocephalic. ABDOMEN: Soft. Nondistended. Nontender. NEUROLOGIC: Alert and oriented. Cranial nerves II through XII grossly intact. ASSESSMENT: 1. Covid 19 pneumonia 2. Chronic cholecystitis PLAN: -Recommend outpatient laparoscopic cholecystectomy -Patient can be discharged from surgical standpoint -Recommend low-fat diet -Continue supportive care -We'll have patient follow-up with Dr. Lopez in 1 week Physician Decorating And Assembly Supervisor note has been reviewed by physician. Signing provider agrees with the documented findings, assessment, and plan of care. Objective - Vital Signs Vital signs: Vital Signs Temp 98.0 F 06/25/20 11:03 Pulse 89 06/25/20 11:03 Resp 20 06/25/20 11:03 BP 108/62 06/25/20 11:03 Pulse Ox 96 06/25/20 11:03 Intake & Output 06/24/20 06/25/20 06/25/20 18:59 06:59 18:59 Output Total 440 Balance -440 Weight 63.503 kg Output: Urine 440 Other: # Voids 2 1 1 # Bowel Movements 1 1 - Labs CBC & Chem 7: 06/25/20 05:51 06/25/20 05:51 Labs: Abnormal Lab Results - Last 24 Hours (Table) 06/25/20 Range/Units 05:51 Chloride 112 H (98-107) mmol/L BUN <2 L (7-17) mg/dL Creatinine 0.50 L (0.52-1.04) mg/dL Glucose 108 H (74-99) mg/dL Calcium 7.8 L (8.4-10.2) mg/dL
--- NOTE | 2020-06-25 15:04 | PN ---
PROGRESS NOTE DATE OF SERVICE: 06/25/2020 REASON FOR FOLLOWUP: COVID-19 infection. INTERVAL HISTORY: The patient was seen on rounds this morning/ the patient has been afebrile. The patient is feeling better. Appetite remains to be low. No vomiting. No chest pain, shortness of breath or cough and no diarrhea. PHYSICAL EXAMINATION: Blood pressure 108/62 with a pulse of 89, temperature 98. She is 96% on room air. General description is an elderly female up in the chair in no distress. RESPIRATORY SYSTEM: Unlabored breathing, clear to auscultation anteriorly. HEART: S1, S2. Regular rate and rhythm. ABDOMEN: Soft, no tenderness. LABS: Hemoglobin is 12.4, white count 3.8. BUN of 2 creatinine 0.50. Stool for C difficile was negative. DIAGNOSTIC IMPRESSION AND PLAN: 1. Patient admitted to the hospital with generalized weakness, decreased appetite in this patient who did have a COVID infection mostly mild. The patient never had a fever or hypoxemia during this admission and has been treated symptomatically with multivitamins and Lovenox. No need for steroids. 2. Patient with abnormal ultrasound of the gallbladder, but subsequent HIDA scan was negative. Clinically not behaving as a cholecystitis and no need for any systemic antibiotic therapy. MMODL / IJN: [id number] /
[2020-06-25] MEDS: PANTOPRAZOLE 40 MG TABLET PO SCH (20:36)
--- NOTE | 2020-06-25 22:52 | P.PN ---
Subjective This is a pleasant 74 years old female with past medical history of GERD. Presents with with dehydration and low oral intake. She was recently diagnosed with covid and she was treated with antiviral and discharge however she keeps coming to the hospital for fatigue and dehydration, last time she talked to her PCP who referred her to emergency room This morning patient is awake and alert, she denies chest pain or dyspnea or coughing. No abdominal pain however she has loose bowel movement about 4 times per day since yesterday and this morning. C. diff was tested and it was negative. Also patient still has poor oral intake Review of systems CONSTITUTIONAL: No fever, no malaise, no fatigue. HEENT: No recent visual problems or hearing problems. Denied any sore throat. CARDIOVASCULAR: No orthopnea, PND, no palpitations, no syncope. PULMONARY: No shortness of breath, no cough, no hemoptysis. GASTROINTESTINAL: no nausea, no vomiting, no abdominal pain. Normoactive bowel sounds. NEUROLOGICAL: No headaches, no weakness, no numbness. Active Medications Generic Name Dose Route Start Last Admin Trade Name Freq PRN Reason Stop Dose Admin Acetaminophen 650 mg 06/21/20 13:42 06/21/20 21:23 Acetaminophen Tab 325 Mg Tab PO 650 mg Q6HR PRN Administration Mild Pain or Fever > 100.5 Hydrocodone Bitart/Acetaminophen 1 each 06/21/20 20:34 Hydrocodone/Apap 5-325mg 1 Each Tab PO Q6HR PRN Pain Alprazolam 0.25 mg 06/21/20 20:34 06/23/20 20:16 Alprazolam 0.25 Mg Tab PO 0.25 mg TID PRN Administration Anxiety Ascorbic Acid 500 mg 06/21/20 20:45 06/25/20 10:58 Ascorbic Acid 500 Mg Tab PO 500 mg DAILY CONSTANCE Administration Cholecalciferol 25 mcg 06/21/20 20:45 06/25/20 10:57 Cholecalciferol 25 Mcg (1000 Iu) Tablet PO 25 mcg DAILY CONSTANCE Administration Enoxaparin Sodium 40 mg 06/21/20 20:45 06/25/20 10:57 Enoxaparin 40 Mg/0.4 Ml Syringe SQ 40 mg DAILY CONSTANCE Administration Folic Acid 1 mg 06/22/20 12:00 06/25/20 10:58 Folic Acid 1 Mg Tab PO 1 mg DAILY@1200 CONSTANCE Administration Potassium Chloride/Dextrose/Sod Cl 1,000 mls @ 75 mls/hr 06/22/20 21:15 06/25/20 10:59 D5%-Ns-Kcl 40 Meq/L Iv Solution IV 75 mls/hr .[id number] CONSTANCE Administration Loperamide HCl 2 mg 06/24/20 12:51 06/25/20 10:54 Loperamide 2 Mg Cap PO 2 mg QID PRN Administration Diarrhea Miscellaneous Information 1 each 06/23/20 10:47 Potassium Replacement Protocol 1 Each Misc MISCELLANE DAILY PRN Per Protocol Protocol Miscellaneous Information 1 each 06/24/20 11:02 Magnesium Replacement Protocol 1 Each Misc MISCELLANE DAILY PRN Per Protocol Protocol Multivitamins 1 each 06/22/20 12:00 06/25/20 10:58 Multivitamins, Thera 1 Each Tab PO 1 each DAILY@1200 CONSTANCE Administration Naloxone HCl 0.2 mg 06/21/20 13:41 Naloxone 0.4 Mg/Ml 1 Ml Vial IV Q2M PRN Opioid Reversal Ondansetron HCl 4 mg 06/21/20 13:42 Ondansetron 4 Mg/2 Ml Vial IVP Q8HR PRN Nausea And Vomiting Pantoprazole Sodium 40 mg 06/25/20 21:00 06/25/20 20:36 Pantoprazole 40 Mg Tablet PO 40 mg AC-BID CONSTANCE Administration Thiamine HCl 100 mg 06/22/20 12:00 06/25/20 10:58 Thiamine 100 Mg Tab PO 100 mg DAILY@1200 CONSTANCE Administration Zinc Sulfate 220 mg 06/21/20 20:45 06/25/20 10:58 Zinc Sulfate 220 Mg Cap PO 220 mg DAILY CONSTANCE Administration Objective - Vital Signs Vital signs: Vital Signs Temp 98.0 F 06/25/20 11:03 Pulse 89 06/25/20 11:03 Resp 20 06/25/20 11:03 BP 108/62 06/25/20 11:03 Pulse Ox 96 06/25/20 11:03 Intake & Output 06/24/20 06/25/20 06/25/20 18:59 06:59 18:59 Output Total 440 Balance -440 Weight 63.503 kg Output: Urine 440 Other: # Voids 2 1 2 # Bowel Movements 1 1 - Exam GENERAL: The patient is alert and oriented x3, not in any acute distress. Well developed, well nourished. HEENT: Pupils are round and equally reacting to light. EOMI. No scleral icterus. No conjunctival pallor. Normocephalic, atraumatic. No pharyngeal erythema. No thyromegaly. CARDIOVASCULAR: S1 and S2 present. No murmurs, rubs, or gallops. PULMONARY: Chest is clear to auscultation, no wheezing or crackles. ABDOMEN: Soft, nontender, nondistended, normoactive bowel sounds. No palpable organomegaly. MUSCULOSKELETAL: No joint swelling or deformity. EXTREMITIES: No cyanosis, clubbing, or pedal edema. NEUROLOGICAL: Gross neurological examination did not reveal any focal deficits. SKIN: No rashes. no petechiae. - Labs CBC & Chem 7: 06/25/20 05:51 06/25/20 05:51 Labs: Abnormal Lab Results - Last 24 Hours (Table) 06/25/20 Range/Units 05:51 Chloride 112 H (98-107) mmol/L BUN <2 L (7-17) mg/dL Creatinine 0.50 L (0.52-1.04) mg/dL Glucose 108 H (74-99) mg/dL Calcium 7.8 L (8.4-10.2) mg/dL Assessment and Plan Assessment: Acute Covid infection Decreased appetite and oral intake secondary to Covid Covid gastroenteritis Fatigue secondary to acute viral syndrome History of GERD Chronic cholecystitis Plan: This is a pleasant 74 years old female who presents with Covid infection, poor oral intake. Encouraged diet. Call for dietary consult. Continue with Protonix, continue with vitamin C, vitamin D and zinc. Continue gentle hydration. Surgical and infectious disease team consult Labs and medication were reviewed.. Continue same treatment. Continue with symptomatic treatment. Resume home medication. Monitor lytes and vitals. DVT and GI prophylaxis. Further recommendationsas per clinical course of the patient DVT prophylaxis: Subcutaneous Lovenox GI Prophylaxis: Ppi PT/OT: Pending Prognosis is guarded
[2020-06-26] MEDS ORDERED: FUROSEMIDE 40 MG TAB PO STA (01:04)
[2020-06-26] MEDS: ACETAMINOPHEN TAB 325 MG TAB PO PRN ×2 (01:11→21:51)
[2020-06-26] MEDS ORDERED: NITROGLYCERIN SL TABS 0.4 MG TAB SUBLINGUAL STA (01:31)
[2020-06-26] MEDS: D5-0.9% NACL WITH KCL 40 MEQ/L 1,000 ML IV SCH (06:10)
[2020-06-26 06:58] LABS: C Reactive Protein 59.8 mg/L (<10.0)
[2020-06-26] MEDS: PANTOPRAZOLE 40 MG TABLET PO SCH ×2 (06:58→17:41)
[2020-06-26] MEDS: ASCORBIC ACID 500 MG TAB PO SCH (10:23)
[2020-06-26] MEDS: ENOXAPARIN 40 MG/0.4 ML SYRINGE SQ SCH (10:23)
[2020-06-26] MEDS: ZINC SULFATE 220 MG CAP PO SCH (10:23)
[2020-06-26] MEDS: CHOLECALCIFEROL 25 MCG (1000 IU) TABLET PO SCH (10:23)
--- NOTE | 2020-06-26 11:32 | XR ---
EXAMINATION TYPE: XR chest 1V DATE OF EXAM: 06/26/2020 COMPARISON: 06/21/2020 HISTORY: Shortness of breath TECHNIQUE: Single frontal view of the chest is obtained. FINDINGS: A patchy bilateral infiltrates with tiny right pleural effusion. Heart size normal. Curvat ure of the spine. No pneumothorax. Diffuse osteopenia. IMPRESSION: Patchy bilateral infiltrates mildly progressed at the right lung base.
[2020-06-26] MEDS ORDERED: ONDANSETRON ODT 4 MG TAB PO PRN (11:50)
[2020-06-26] MEDS ORDERED: FUROSEMIDE 10 MG/ML 4 ML VIAL IV STA (11:59)
[2020-06-26] MEDS ORDERED: ONDANSETRON 4 MG/2 ML VIAL IVP PRN (12:14)
[2020-06-26] MEDS: MULTIVITAMINS, THERA 1 EACH TAB PO SCH (13:48)
[2020-06-26] MEDS: THIAMINE 100 MG TAB PO SCH (13:48)
[2020-06-26] MEDS: FOLIC ACID 1 MG TAB PO SCH (13:48)
--- NOTE | 2020-06-26 14:25 | P.PN ---
Subjective Progress Note Date: 06/26/20 CHIEF COMPLAINT: Shortness of breath HISTORY OF PRESENT ILLNESS: Surgical service is following for patient's chronic cholecystitis. She is admitted to hospital with Covid 19 pneumonia and dehydration. Patient did have upper epigastric abdominal discomfort after eating greasy hashbrowns from [employer] this morning. She is supposed to be on a low-fat diet. Diarrhea resolved. Afebrile. PHYSICAL EXAM: VITAL SIGNS: Reviewed. GENERAL: Well-developed in no acute distress. HEENT: No sclera icterus. Extraocular movements grossly intact. Moist buccal mucosa. Head is atraumatic, normocephalic. ABDOMEN: Soft. Nondistended. Nontender. NEUROLOGIC: Alert and oriented. Cranial nerves II through XII grossly intact. ASSESSMENT: 1. Covid 19 pneumonia 2. Chronic cholecystitis PLAN: -Recommend outpatient laparoscopic cholecystectomy -Patient can be discharged from surgical standpoint -Recommend low-fat diet -Continue supportive care -We'll have patient follow-up with Dr. Lopez in 1 week Physician Transportation Specialist note has been reviewed by physician. Signing provider agrees with the documented findings, assessment, and plan of care. Objective - Vital Signs Vital signs: Vital Signs Temp 97.2 F L 06/26/20 14:02 Pulse 84 06/26/20 14:02 Resp 24 06/26/20 14:02 BP 120/66 06/26/20 14:02 Pulse Ox 94 L 06/26/20 14:02 Intake & Output 06/25/20 06/26/20 06/26/20 18:59 06:59 18:59 Intake Total 517 20 Balance 517 20 Weight 63.503 kg Intake: Oral 517 20 Other: # Voids 2 1 1 # Bowel Movements 1 # Emeses 1 - Labs CBC & Chem 7: 06/25/20 05:51 06/25/20 05:51 Labs: Abnormal Lab Results - Last 24 Hours (Table) 06/26/20 Range/Units 06:10 C-Reactive Protein 59.8 H (<10.0) mg/L Microbiology - Last 24 Hours (Table) 06/24/20 14:14 Blood Culture - Preliminary Blood No Growth after 24 hours
--- NOTE | 2020-06-26 16:27 | PN ---
PROGRESS NOTE DATE OF SERVICE: 06/26/2020 REASON FOR FOLLOWUP: COVID-19 infection. INTERVAL HISTORY: The patient is currently afebrile. The patient is feeling better. She is breathing comfortably. She did mention decreased appetite. No vomiting or diarrhea. PHYSICAL EXAMINATION: Blood pressure is 120/66, pulse of 80, temperature 97.2. She is 95% on room air. General description is a middle-aged female up in the room in no distress. RESPIRATORY SYSTEM: Unlabored breathing. ABDOMEN: Soft. No tenderness. EXTREMITIES: No edema of the feet. LABS: CRP was 59.8. The patient did have a chest x-ray showing patchy bilateral infiltrates, mildly progressed at the right lung base. DIAGNOSTIC IMPRESSION AND PLAN: 1. Patient admitted to hospital with acute COVID-19 infection. This patient has not been hypoxic and shows overall clinical improvement just with hydration. The patient at this time is covered with vitamin C, Lovenox, zinc, ascorbic acid and supportive treatment. 2. Patient with possible chronic cholecystitis. Surgery has been planned for next week. No evidence of any acute cholecystitis, fever or elevated white count. No need for systemic antibiotic therapy at this point. MMODL / IJN: [id number] /
--- NOTE | 2020-06-26 22:45 | P.PN ---
Subjective This is a pleasant 74 years old female with past medical history of GERD. Presents with with dehydration and low oral intake. She was recently diagnosed with covid and she was treated with antiviral and discharge however she keeps coming to the hospital for fatigue and dehydration, last time she talked to her PCP who referred her to emergency room This morning patient is awake and alert, she denies chest pain or dyspnea or coughing. No abdominal pain however she has loose bowel movement about 4 times per day since yesterday and this morning. C. diff was tested and it was negative. Also patient still has poor oral intake 06/26/2020 Patient with no respiratory symptoms however she had poor oral intake when she came to the hospital. No respiratory complaints, her diarrhea stopped. No abdominal pain Vital signs stable, labs no change. Chest x-ray: Patchy bilateral infiltrates mildly progressed at the right lung base EKG showing normal sinus rhythm at 69 BPM, no significant ST-T changes and QTC is 443 SHEENT is currently covered with D5 half-normal saline at 75 mL/h, with multiple vitamin cocktail for Covid and Protonix. Octaviano is admitted today Review of systems CONSTITUTIONAL: No fever, no malaise, no fatigue. HEENT: No recent visual problems or hearing problems. Denied any sore throat. CARDIOVASCULAR: No orthopnea, PND, no palpitations, no syncope. PULMONARY: No shortness of breath, no cough, no hemoptysis. GASTROINTESTINAL: no nausea, no vomiting, no abdominal pain. Normoactive bowel sounds. NEUROLOGICAL: No headaches, no weakness, no numbness. Active Medications Generic Name Dose Route Start Last Admin Trade Name Freq PRN Reason Stop Dose Admin Acetaminophen 650 mg 06/21/20 13:42 06/26/20 21:51 Acetaminophen Tab 325 Mg Tab PO 650 mg Q6HR PRN Administration Mild Pain or Fever > 100.5 Hydrocodone Bitart/Acetaminophen 1 each 06/21/20 20:34 Hydrocodone/Apap 5-325mg 1 Each Tab PO Q6HR PRN Pain Alprazolam 0.25 mg 06/21/20 20:34 06/23/20 20:16 Alprazolam 0.25 Mg Tab PO 0.25 mg TID PRN Administration Anxiety Ascorbic Acid 500 mg 06/21/20 20:45 06/26/20 10:23 Ascorbic Acid 500 Mg Tab PO 500 mg DAILY CONSTANCE Administration Cholecalciferol 25 mcg 06/21/20 20:45 06/26/20 10:23 Cholecalciferol 25 Mcg (1000 Iu) Tablet PO 25 mcg DAILY CONSTANCE Administration Enoxaparin Sodium 40 mg 06/21/20 20:45 06/26/20 10:23 Enoxaparin 40 Mg/0.4 Ml Syringe SQ 40 mg DAILY CONSTANCE Administration Folic Acid 1 mg 06/22/20 12:00 06/26/20 13:48 Folic Acid 1 Mg Tab PO Not Given DAILY@1200 [facility] Loperamide HCl 2 mg 06/24/20 12:51 06/25/20 10:54 Loperamide 2 Mg Cap PO 2 mg QID PRN Administration Diarrhea Miscellaneous Information 1 each 06/23/20 10:47 Potassium Replacement Protocol 1 Each Misc MISCELLANE DAILY PRN Per Protocol Protocol Miscellaneous Information 1 each 06/24/20 11:02 Magnesium Replacement Protocol 1 Each Misc MISCELLANE DAILY PRN Per Protocol Protocol Multivitamins 1 each 06/22/20 12:00 06/26/20 13:48 Multivitamins, Thera 1 Each Tab PO Not Given DAILY@1200 [facility] Naloxone HCl 0.2 mg 06/21/20 13:41 Naloxone 0.4 Mg/Ml 1 Ml Vial IV Q2M PRN Opioid Reversal Ondansetron HCl 4 mg 06/26/20 12:14 06/26/20 13:35 Ondansetron 4 Mg/2 Ml Vial IVP 4 mg Q6H PRN Administration Nausea And Vomiting Pantoprazole Sodium 40 mg 06/25/20 21:00 06/26/20 17:41 Pantoprazole 40 Mg Tablet PO 40 mg AC-BID CONSTANCE Administration Thiamine HCl 100 mg 06/22/20 12:00 06/26/20 13:48 Thiamine 100 Mg Tab PO Not Given DAILY@1200 [facility] Zinc Sulfate 220 mg 06/21/20 20:45 06/26/20 10:23 Zinc Sulfate 220 Mg Cap PO 220 mg DAILY CONSTANCE Administration Objective - Vital Signs Vital signs: Vital Signs Temp 97.2 F L 06/26/20 14:02 Pulse 80 06/26/20 15:38 Resp 20 06/26/20 15:38 BP 120/66 06/26/20 14:02 Pulse Ox 95 06/26/20 15:38 Intake & Output 06/25/20 06/26/20 06/26/20 18:59 06:59 18:59 Intake Total 517 20 Output Total 100 Balance 517 -80 Weight 63.503 kg Intake: Oral 517 20 Output: Urine 100 Other: Voiding Method Toilet # Voids 2 1 1 # Bowel Movements 1 # Emeses 1 - Exam GENERAL: The patient is alert and oriented x3, not in any acute distress. Well developed, well nourished. HEENT: Pupils are round and equally reacting to light. EOMI. No scleral icterus. No conjunctival pallor. Normocephalic, atraumatic. No pharyngeal erythema. No thyromegaly. CARDIOVASCULAR: S1 and S2 present. No murmurs, rubs, or gallops. PULMONARY: Chest is clear to auscultation, no wheezing or crackles. ABDOMEN: Soft, nontender, nondistended, normoactive bowel sounds. No palpable organomegaly. MUSCULOSKELETAL: No joint swelling or deformity. EXTREMITIES: No cyanosis, clubbing, or pedal edema. NEUROLOGICAL: Gross neurological examination did not reveal any focal deficits. SKIN: No rashes. no petechiae. - Labs CBC & Chem 7: 06/25/20 05:51 06/25/20 05:51 Labs: Abnormal Lab Results - Last 24 Hours (Table) 06/26/20 Range/Units 06:10 C-Reactive Protein 59.8 H (<10.0) mg/L Microbiology - Last 24 Hours (Table) 06/24/20 14:14 Blood Culture - Preliminary Blood No Growth after 24 hours Assessment and Plan Assessment: Acute Covid infection Decreased appetite and oral intake secondary to Covid Covid gastroenteritis Mild bilateral patchy infiltrate pneumonia secondary to Covid with minimal or no symptoms Fatigue secondary to acute viral syndrome History of GERD Chronic cholecystitis Plan: This is a pleasant 74 years old female who presents with Covid infection, poor oral intake. Encouraged diet. dietary consult. Continue with Protonix, continue with vitamin C, vitamin D and zinc. Continue gentle hydration. Surgical and infectious disease team consult Start the patient steroids which will help with her appetite and infection Labs and medication were reviewed.. Continue same treatment. Continue with symptomatic treatment. Resume home medication. Monitor lytes and vitals. DVT and GI prophylaxis. Further recommendations as per clinical course of the patient DVT prophylaxis: Subcutaneous Lovenox GI Prophylaxis: Ppi PT/OT: Pending Prognosis is guarded
[2020-06-26] MEDS: dexAMETHasone 2 MG TAB PO SCH (23:00)
[2020-06-27] MEDS: PANTOPRAZOLE 40 MG TABLET PO SCH (06:26)
[2020-06-27] MEDS: CHOLECALCIFEROL 25 MCG (1000 IU) TABLET PO SCH (08:06)
[2020-06-27] MEDS: ENOXAPARIN 40 MG/0.4 ML SYRINGE SQ SCH (08:06)
[2020-06-27] MEDS: ZINC SULFATE 220 MG CAP PO SCH (08:06)
[2020-06-27] MEDS: dexAMETHasone 2 MG TAB PO SCH (08:06)
[2020-06-27] MEDS: ASCORBIC ACID 500 MG TAB PO SCH (08:06)
[2020-06-27 08:12] VITALS: BP 108/69; RESP 18; TEMP 98.1
--- NOTE | 2020-06-27 11:08 | P.PN ---
Subjective Progress Note Date: 06/27/20 Principal diagnosis: Cholecystitis Patient doing well today. Denies pain. Tolerating diet. Still weak but improved. Objective - Vital Signs Vital signs: Vital Signs Temp 98.1 F 06/27/20 08:07 Pulse 78 06/27/20 08:07 Resp 18 06/27/20 08:07 BP 108/69 06/27/20 08:07 Pulse Ox 94 L 06/27/20 08:07 Intake & Output 06/26/20 06/27/20 06/27/20 18:59 06:59 18:59 Intake Total 20 320 Output Total 700 400 Balance -680 -80 Intake: Oral 20 320 Output: Urine 700 400 Other: Voiding Method Toilet Toilet # Voids 1 200 # Emeses 1 - Exam Abdomen: Soft, nondistended, nontender - Labs CBC & Chem 7: 06/25/20 05:51 06/25/20 05:51 Labs: Microbiology - Last 24 Hours (Table) 06/24/20 14:14 Blood Culture - Preliminary Blood No Growth after 48 hours Assessment and Plan (1) Cholecystitis Narrative/Plan: Patient doing better today. May discharge. Outpatient follow-up with Dr. Lopez Current Visit: Yes Status: Acute Code(s): K81.9 - CHOLECYSTITIS, UNSPECIFIED SNOMED Code(s): 81350028
[2020-06-27] MEDS: MULTIVITAMINS, THERA 1 EACH TAB PO SCH (12:05)
[2020-06-27] MEDS: FOLIC ACID 1 MG TAB PO SCH (12:05)
[2020-06-27] MEDS: THIAMINE 100 MG TAB PO SCH (12:06)
[2020-06-27 13:13] VITALS: PULSE 72
--- NOTE | 2020-06-28 02:05 | P.DS ---
Providers Date of admission: 06/23/20 12:13 Attending physician: Rafaela Gonzalez Consults: 06/21/20 20:33 Consult Physician Routine Consulting Provider: Julissa Ackerman Consult Reason/Comments: covid Do you want consulting provider notified?: Yes 06/23/20 16:05 Consult Physician Routine Consulting Provider: Junior Lopez Consult Reason/Comments: cholelithiasis Do you want consulting provider notified?: Yes Primary care physician: Randall Marinelli MD Hospital Course: Diagnoses: Acute Covid infection Decreased appetite and oral intake secondary to Covid Chronic cholecystitis Covid gastroenteritis Mild bilateral patchy infiltrate pneumonia secondary to Covid with minimal or no symptoms Mild hypoxic respiratory failure. Patient does not qualify for home oxygen upon discharge Fatigue secondary to acute viral syndrome History of GERD Hospital course: This is a pleasant 74 years old female with past medical history of GERD. Presents with with dehydration and low oral intake. She was recently diagnosed with covid and she was treated with antiviral and discharge however she keeps coming to the hospital for fatigue and dehydration, last time she talked to her PCP who referred her to emergency room This time patient is awake and alert, she denies chest pain or dyspnea or coughing. No abdominal pain however she has loose bowel movement about 4 times per day but stopped prior to discharge. C. diff was tested and it was negative.Chest x-ray: Patchy bilateral infiltrates mildly progressed at the right lung base. Her oxygen up to 88% on room air 2 days ago and she was started on steroids, dexamethasone for 10 day course and she tolerated that well over the last 2 days, her main issue was inability to eat stating that because she lost her taste. She was eating 25% of her medial in the morning, patient was encouraged that her on was able to take a second Vietnamese by 100%. Patient was insistent on leaving today. She was walking in the room freely with no difficulty. Sterile discussed with family and they agree to take the patient home today. CTA of the chest was negative for PE but showed bilateral groundglass opacity Ultrasound of the liver showing gallbladder sludge and thickened gallbladder, she has negative HIDA scan, Dr. Jane evaluated her for chronic cholecystitis and recommended outpatient follow-up. Patient with no abdominal pain, no RUQ pain or tenderness. No other GI symptoms Patient doesn't qualify for oxygen but we will dyspnea on steroids because she was hypoxic 2 days ago. Problems and management plan were discussed with the patient and he verbalized u nderstanding and acceptance Patient was found stable and can be discharged home however he needs follow-up as an outpatient. Patient was instructed to follow up with PCP Dr. Marinelli within one week and patient agrees Also patient was instructed to follow up with Dr. Umanzor in one week for her chronic cholecystitis and she agrees to call and make appointment as today is weakened Physical exam Gen: patient is a AAOx3, no distress CVS: S1-S2, RRR, no murmur Lungs: B/L CTA, no wheezing Abdomen: soft, no distention, no tenderness, positive bowel sounds Extremity: no leg edema or induration Time spent more than 35 minutes Patient Condition at Discharge: Stable Plan - Discharge Summary Discharge Rx Participant: No New Discharge Prescriptions: New Loperamide [Imodium] 2 mg PO QID PRN #10 cap PRN Reason: Diarrhea Zinc Sulfate [Orazinc] 220 mg PO DAILY #30 cap Dexamethasone [Decadron] 6 mg PO DAILY 8 Days #8 tablet Pantoprazole [Protonix] 40 mg PO AC-BID #60 tablet. Acetaminophen Tab [Tylenol] 325 mg PO Q6HR PRN #20 tab PRN Reason: Mild Pain Or Fever > 100.5 Thiamine [Vitamin B-1] 100 mg PO DAILY@1200 #30 tab Ascorbic Acid [Vitamin C] 500 mg PO DAILY #30 tab Cholecalciferol [Vitamin D3 (25 Mcg = 1000 Iu)] 25 mcg PO DAILY #30 tablet Discontinued Ibuprofen [Motrin Ib] 100 mg PO Q8H PRN PRN Reason: Pain Or Fever > 100.5 Discharge Medication List Acetaminophen Tab [Tylenol] 325 mg PO Q6HR PRN #20 tab 06/27/20 [Rx] Ascorbic Acid [Vitamin C] 500 mg PO DAILY #30 tab 06/27/20 [Rx] Cholecalciferol [Vitamin D3 (25 Mcg = 1000 Iu)] 25 mcg PO DAILY #30 tablet 06/27/20 [Rx] Dexamethasone [Decadron] 6 mg PO DAILY 8 Days #8 tablet 06/27/20 [Rx] Loperamide [Imodium] 2 mg PO QID PRN #10 cap 06/27/20 [Rx] Pantoprazole [Protonix] 40 mg PO AC-BID #60 tablet. 06/27/20 [Rx] Thiamine [Vitamin B-1] 100 mg PO DAILY@1200 #30 tab 06/27/20 [Rx] Zinc Sulfate [Orazinc] 220 mg PO DAILY #30 cap 06/27/20 [Rx] Follow up Appointment(s)/Referral(s): Randall Marinelli MD [Primary Care Provider] - 1-2 days [facility], [NON-STAFF] - Junior Lopez MD [STAFF PHYSICIAN] - 1 Week Activity/Diet/Wound Care/Special Instructions: heart healthy diet activity is restricted till you see your doctor Call you doctor's office with any questions. Return to ER with any emergent symptoms such as difficulty breathing. Take medications as prescribed. Discharge Disposition: HOME WITH HOME HEALTH SERVICES
== END 2020-06-27 15:08 | disposition home health service (06) | DRG 177 ==
LOC: EC 10:36 → 6NMEDSUR 13:33 → 6PED 06-22 18:39 → OBSVTOIN 06-23 12:13
PROVIDERS: ADMIT Hospitalist; ATTEND Hospitalist
DX: U07.1 COVID-19 (principal); J12.82 Pneumonia due to coronavirus disease 2019; J96.01 Acute respiratory failure with hypoxia; A08.39 Other viral enteritis; J98.11 Atelectasis; K80.10 Calculus of gallbladder with chronic cholecystitis without obstruction; N13.30 Unspecified hydronephrosis; E87.2 Acidosis; E86.0 Dehydration; E87.6 Hypokalemia; E16.2 Hypoglycemia, unspecified; E83.42 Hypomagnesemia; K21.9 Gastro-esophageal reflux disease without esophagitis; F41.9 Anxiety disorder, unspecified; Z98.42 Cataract extraction status, left eye; Z98.41 Cataract extraction status, right eye; Z98.890 Other specified postprocedural states; Z86.718 Personal history of other venous thrombosis and embolism; Z79.899 Other long term (current) drug therapy
CPT/HCPCS: 36415; 71045; 71275; 76705; 78227; 80048; 80053; 81001; 83605; 83615; 83735; 84132; 84145; 85025; 85379; 85610; 85652; 86140; 87040; 87324; 93005; 99285

== ENCOUNTER 2020-08-18 07:54 | Day surgery (SDC) | payer MEDICARE, OTHER ==
[2020-08-13 09:04] VITALS: BMI 27.3
[~2020-08-18 07:54] MED LIST: ACETAMINOPHEN TAB 500 MG TAB PO PRN; DEXAMETHASONE SOD PHOSPHATE 4 MG/ML 1 ML VIAL IV ONE; HEPARIN SODIUM,PORCINE/PF 5,000 UNIT/0.5 ML SYRINGE SQ PRN; HYDROmorphone 0.5 MG/0.5 ML SYRINGE IVP PRN; LACTATED RINGERS 1,000 ML IV SCH; LIDOCAINE 1% (10MG/ML) FOR IV START INTRADERMA PRN; MIDAZOLAM 2 MG/2 ML VIAL IV PRN; ONDANSETRON 4 MG/2 ML VIAL IVP ONE
--- NOTE | 2020-08-18 09:24 | P.GSHP ---
History of Present Illness H&P Date: 08/18/20 Chief Complaint: Chronic cholecystitis Cyst 74-year-old female second with recurrent pain. Patient's been worked up and found have chronic cholecystitis. She presents today for laparoscopic cholecystectomy Past Medical History Past Medical History: GERD/Reflux Additional Past Medical History / Comment(s): hx of varicose veins, hx of covid infection 06/17/20 History of Any Multi-Drug Resistant Organisms: None Reported Past Surgical History: No Surgical Hx Reported Additional Past Surgical History / Comment(s): bilateral cataract surgery; right leg vein stripping Past Anesthesia/Blood Transfusion Reactions: No Reported Reaction Smoking Status: Never smoker - Past Family History Mother Family Medical History: No Reported History Medications and Allergies Home Medications Medication Instructions Recorded Confirmed Type No Known Home Medications 08/13/20 08/18/20 History Allergies Allergy/AdvReac Type Severity Reaction Status Date / Time No Known Allergies Allergy Verified 08/18/20 08:28 Surgical - Exam Vital Signs Temp Pulse Resp BP Pulse Ox 97.0 F L 71 16 126/61 98 08/18/20 08:37 08/18/20 08:37 08/18/20 08:37 08/18/20 08:37 08/18/20 08:37 - General well developed, well nourished, no distress - Eyes PERRL - ENT normal pinna - Neck no masses - Respiratory normal expansion - Cardiovascular Rhythm: regular - Abdomen Abdomen: soft, non tender Assessment and Plan Assessment: Chronic cholecystitis. We'll perform laparoscopic cholecystectomy
[2020-08-18] MEDS ORDERED: NEOSTIGMINE 1 MG/ML 10 ML VIAL ONE (09:40)
[2020-08-18] MEDS ORDERED: KETOROLAC 15 MG/ML 1 ML VIAL ONE (09:40)
[2020-08-18] MEDS ORDERED: fentaNYL (PF) 50 MCG/ML 2 ML AMP ONE (09:40)
[2020-08-18] MEDS ORDERED: GLYCOPYRROLATE 0.2 MG/ML 2 ML VIAL ONE (09:40)
[2020-08-18] MEDS ORDERED: BUPIVACAINE (PF) 0.25% 30 ML VIAL SQ ONE (09:40)
[2020-08-18] MEDS ORDERED: ROCURONIUM 10 MG/ML (5 ML VIAL) IV ONE (09:40)
[2020-08-18] MEDS ORDERED: LIDOCAINE 1% INJ 10MG/ML (20 ML MDV) ONE (09:40)
[2020-08-18] MEDS ORDERED: MIDAZOLAM 2 MG/2 ML VIAL ONE (09:40)
[2020-08-18] MEDS ORDERED: PROPOFOL 10 MG/ML 20 ML VIAL IV ONE (09:40)
--- NOTE | 2020-08-18 10:08 | P.OP ---
Date of Procedure: 08/18/20 Preoperative Diagnosis: Cholecystitis Postoperative Diagnosis: Cholecystitis Procedure(s) Performed: Laparoscopic cholecystectomy Anesthesia: DEVANG Surgeon: Junior Lopez Estimated Blood Loss (ml): 5 Pathology: other Condition: stable Disposition: PACU Description of Procedure: The patient was placed on the operating table. The patient received a general endotracheal tube anesthesia. The patients abdomen was prepped and draped in the usual sterile fashion. Through an infraumbilical stab incision, the fascia of the anterior abdominal wall was grasped with a pair of Kochers and then the Veress needle was placed in the peritoneal cavity. Position of the Veress needle was confirmed with positive drop test. The abdomen was then insufflated. After adequate insufflation, the 10 mm trocar was placed in the peritoneal cavity. Following this the laparoscope was placed in the peritoneal cavity. The patient was placed in the head-up, right side up position and then a 5 mm trocar was placed in the right lateral and right subcostal position under direct visualization. A 8 mm trocar was placed in the epigastric position. The gallbladder was grasped in the fundus and infundibulum. Traction on the gallbladder was placed in the lateral and the cephalad positions. The triangle of Calot was visualized.. The cystic duct was bluntly dissected until the union of the cystic duct and common bile duct was seen. A critical view of safety was achieved. The cystic duct was then divided and sealed with the Harmonic scissors. A PDS Endoloop was then placed throughout the cystic duct stump. The cystic artery divided and sealed with the Harmonic scissors. The gallbladder was then removed from the liver bed using Harmonic scissors. The gallbladder was then extracted through the epigastric port site. Operative field was checked for any bleeding spots and Harmonic scissors was used to coagulate the liver bed. The abdomen was irrigated. The trocars were removed. The skin was closed using interrupted 3-0 Vicryl suture. Dermabond dressing were applied. The patient tolerated the procedure well.
[2020-08-18 10:28] VITALS: TEMP 96.8
[2020-08-18] MEDS ORDERED: LACTATED RINGERS 1,000 ML IV ONE (11:00)
[2020-08-18 12:45] VITALS: BP 135/61; PULSE 52; RESP 18
== END 2020-08-18 13:25 | disposition home or self-care (01) ==
LOC: OR 07:54
PROVIDERS: ATTEND Surgery
DX: K80.10 Calculus of gallbladder with chronic cholecystitis without obstruction (principal); K21.9 Gastro-esophageal reflux disease without esophagitis; I83.90 Asymptomatic varicose veins of unspecified lower extremity; Z86.16 Personal history of COVID-19; Z87.898 Personal history of other specified conditions; Z79.899 Other long term (current) drug therapy; Z98.890 Other specified postprocedural states
CPT/HCPCS: 88304; 47562; J2250; J1100; J2710; J0690; J2405; J2001; J3010; J1885; J2704; J1644

== ENCOUNTER → 2020-12-30 | Outpatient (CLI) | payer MEDICARE, OTHER ==
--- NOTE | 2020-12-31 14:30 | MM ---
Reason for exam: screening (asymptomatic). Last mammogram was performed 1 year ago. History: Patient is postmenopausal. Family history of breast cancer in daughter at age 42. Physical Findings: A clinical breast exam by your physician is recommended on an annual basis and results should be correlated with mammographic findings. MG 3D Screening Mammo W/Cad Bilateral CC and MLO view(s) were taken. Prior study comparison: November 26, 2019, bilateral MG 3d screening mammo w/cad. There are scattered fibroglandular densities. No significant changes when compared with prior studies. ASSESSMENT: Benign, BI-RAD 2 RECOMMENDATION: Routine screening mammogram of both breasts in 1 year.
== END | disposition home or self-care (01) ==
LOC: RADMAMWWP 08:44
PROVIDERS: ATTEND Family Medicine
DX: Z12.31 Encounter for screening mammogram for malignant neoplasm of breast (principal); Z80.3 Family history of malignant neoplasm of breast; Z78.0 Asymptomatic menopausal state
CPT/HCPCS: 77063; 77067

== ENCOUNTER 2021-09-09 07:43 | Observation (INO) | payer MEDICARE, OTHER ==
[2021-09-09] MEDS ORDERED: ONDANSETRON 4 MG/2 ML VIAL IVP STA (07:56)
[2021-09-09] MEDS ORDERED: SODIUM CHLORIDE 0.9% 1,000 ML IV STA (07:56)
[2021-09-09] MEDS ORDERED: MORPHINE SULFATE 4 MG/ML SYRINGE IVP STA (08:51)
[2021-09-09 09:05] LABS: Basophils % (A) 1 %; Eosinophils # (A) 0.1 k/uL (0-0.7); Eosinophils % (A) 1 %; HCT 49.3 % (34.0-46.0); HGB 16.3 gm/dL (11.4-16.0); Lymphocytes # (A) 1.4 k/uL (1.0-4.8); Lymphocytes % (A) 17 %; MCH 31.8 pg (25.0-35.0); MCHC 33.1 g/dL (31.0-37.0); MCV 96.2 fL (80.0-100.0); Mean Platelet Volume 7.2; Monocytes # (A) 0.2 k/uL (0-1.0); Monocytes % (A) 3 %; Neutrophils # (A) 6.4 k/uL (1.3-7.7); Neutrophils % (A) 78 %; Platelet Count 286 k/uL (150-450); RBC 5.12 m/uL (3.80-5.40); RDW 12.3 % (11.5-15.5); WBC 8.2 k/uL (3.8-10.6)
[2021-09-09 09:21] LABS: INR 0.9 (<1.2); Partial Thromboplastin Time 22.8 sec (22.0-30.0); Prothrombin Time 9.9 sec (9.0-12.0)
[2021-09-09 09:24] LABS: Albumin 4.6 g/dL (3.5-5.0); Calcium 9.9 mg/dL (8.4-10.2); Potassium 3.9 mmol/L (3.5-5.1); Total Bilirubin 1.7 mg/dL (0.2-1.3); Total Protein 7.4 g/dL (6.3-8.2)
--- NOTE | 2021-09-09 09:50 | CT ---
EXAMINATION TYPE: CT abdomen pelvis wo con DATE OF EXAM: 09/09/2021 COMPARISON: CT dated 05/01/2021 HISTORY: Epigastric abdominal pain, nausea and vomiting. CT DLP: 676.7 mGycm Automated exposure control for dose reduction was used. TECHNIQUE: Helical acquisition of images was performed from the lung bases through the pelvis. FINDINGS: LUNG BASES: Right basal posterior subpleural reticulations. LIVER/GB: Previous cholecystectomy. No definite hepatic focal lesion. Slightly dilated CBD, probably related to postcholecystectomy status. Please correlate with bilirubin level. PANCREAS: No significant abnormality is seen. SPLEEN: No significant abnormality is seen. ADRENALS: No significant abnormality is seen. KIDNEYS: Suspected bilateral parapelvic renal cysts. FREE AIR: No free air is visualized RETROPERITONEAL ADENOPATHY: None visualized REPRODUCTIVE ORGANS: No gross uterine or adnexal mass. URINARY BLADDER: Apparent perineal prolapse with cystocele, please correlate clinically. PELVIC ADENOPATHY: No pathologically enlarged pelvic lymph nodes. OSSEOUS STRUCTURES: Osteopenia. Degenerative changes of the symphysis pubis. Lower lumbar facet oste oarthropathy. BOWEL: Slightly dilated fluid-filled esophagus, please correlate clinically. Grossly unremarkable st omach and duodenum. Fluid-filled small bowel with no evidence of significant dilatation or signs of a cute small bowel obstruction. The colon is also fluid-filled, please correlate for diarrhea. Scattere d small bowel diverticulosis. No evidence of colonic obstruction. OTHER: Minimal arterial atherosclerotic calcification. Small amount of free pelvic fluid. Venous demond aterals are seen in the right inguinal and upper thigh subcutaneous tissue. Slightly tiffany mesenteric root with a slightly prominent subcentimeter mesenteric root lymph nodes which can be seen in cases of mesenteric panniculitis. Fat stranding is also seen in other areas in the mesentery which may sugg est mild inflammatory changes. IMPRESSION: Fluid-filled small and large bowel without significant dilatation, signs of obstruction or wall thick ening. This is nonspecific. Gastroenteritis or diarrhea cannot be excluded, please correlate clinical ly. Small amount of free pelvic fluid. The described mesenteric changes are nonspecific and could be rela shad to mild inflammatory process like mesenteric panniculitis, please correlate clinically. Other fin dings as described above.
--- NOTE | 2021-09-09 09:50 | ED ---
Abdominal Pain HPI - General Chief Complaint: Abdominal Pain Stated Complaint: Abd pain, diarrhea Source: patient Mode of arrival: wheelchair Limitations: no limitations - History of Present Illness Initial Comments: 75-year-old female with past medical history of reflux presents to the emergency room with epigastric pain. States that it started at 7:00 this morning. Patient had an episode of diarrhea at home. Denies black or bloody stools. She had significant epigastric discomfort and called her daughter who brought her in the emergency department. Upon arriving to the hospital the patient had an episode of emesis. She is status post cholecystectomy. Denies any recent fevers or chills. No changes in her urination to include dysuria or hematuria. No chest pain. No other alleviating, precipitating or modifying factors - Related Data Home Medications Medication Instructions Recorded Confirmed No Known Home Medications 09/09/21 09/09/21 Allergies Allergy/AdvReac Type Severity Reaction Status Date / Time No Known Allergies Allergy Verified 09/09/21 09:21 Review of Systems ROS Statement: Those systems with pertinent positive or pertinent negative responses have been documented in the HPI. ROS Other: All systems not noted in ROS Statement are negative. Past Medical History Past Medical History: GERD/Reflux Additional Past Medical History / Comment(s): hx of varicose veins, hx of covid infection 06/17/20 History of Any Multi-Drug Resistant Organisms: None Reported Past Surgical History: Cholecystectomy Additional Past Surgical History / Comment(s): bilateral cataract surgery; right leg vein stripping Past Anesthesia/Blood Transfusion Reactions: No Reported Reaction Past Psychological History: No Psychological Hx Reported Smoking Status: Never smoker Past Alcohol Use History: None Reported Past Drug Use History: None Reported - Past Family History Mother Family Medical History: No Reported History General Exam Limitations: no limitations Course Vital Signs 09/09/21 07:45 Temperature 97.0 F L Pulse Rate 91 Respiratory 22 Rate Blood Pressure 145/77 O2 Sat by Pulse 99 Oximetry Medical Decision Making - Medical Decision Making Upon arrival patient is placed into room 25. Thorough history and physical exam was performed. IV access is established and laboratory studies are conducted. Patient is given Zofran, fluids and morphine for pain control. Laboratory studies are reviewed. A CT is performed which demonstrates mesenteric adenitis. Patient will be admitted for fluids and pain control. Spoke with Xu from [facility] who agreed to admit the patient. - Lab Data Result diagrams: 09/09/21 08:45 09/09/21 08:45 Lab Results 09/09/21 09/09/21 09/09/21 Range/Units 08:40 08:40 08:45 WBC 8.2 (3.8-10.6) k/uL RBC 5.12 (3.80-5.40) m/uL Hgb 16.3 H (11.4-16.0) gm/dL Hct 49.3 H (34.0-46.0) % MCV 96.2 (80.0-100.0) fL MCH 31.8 (25.0-35.0) pg MCHC 33.1 (31.0-37.0) g/dL RDW 12.3 (11.5-15.5) % Plt Count 286 (150-450) k/uL MPV 7.2 Neutrophils % 78 % Lymphocytes % 17 % Monocytes % 3 % Eosinophils % 1 % Basophils % 1 % Neutrophils # 6.4 (1.3-7.7) k/uL Lymphocytes # 1.4 (1.0-4.8) k/uL Monocytes # 0.2 (0-1.0) k/uL Eosinophils # 0.1 (0-0.7) k/uL Basophils # 0.0 (0-0.2) k/uL PT (9.0-12.0) sec INR (<1.2) APTT (22.0-30.0) sec Sodium (137-145) mmol/L Potassium (3.5-5.1) mmol/L Chloride (98-107) mmol/L Carbon Dioxide (22-30) mmol/L Anion Gap mmol/L BUN (7-17) mg/dL Creatinine (0.52-1.04) mg/dL Est GFR (CKD-EPI)AfAm (>60 ml/min/1.73 sqM) Est GFR (CKD-EPI)NonAf (>60 ml/min/1.73 sqM) Glucose (74-99) mg/dL Plasma Lactic Acid Faraz (0.7-2.0) mmol/L Calcium (8.4-10.2) mg/dL Total Bilirubin (0.2-1.3) mg/dL AST (14-36) U/L ALT (4-34) U/L Alkaline Phosphatase (38-126) U/L Troponin I (0.000-0.034) ng/mL Total Protein (6.3-8.2) g/dL Albumin (3.5-5.0) g/dL Lipase (23-300) U/L Coronavirus (PCR) Not Detected (Not Detectd) Influenza Type A RNA Not Detected (Not Detectd) Influenza Type B (PCR) Not Detected (Not Detectd) 09/09/21 09/09/21 09/09/21 Range/Units 08:45 08:45 08:45 WBC (3.8-10.6) k/uL RBC (3.80-5.40) m/uL Hgb (11.4-16.0) gm/dL Hct (34.0-46.0) % MCV (80.0-100.0) fL MCH (25.0-35.0) pg MCHC (31.0-37.0) g/dL RDW (11.5-15.5) % Plt Count (150-450) k/uL MPV Neutrophils % % Lymphocytes % % Monocytes % % Eosinophils % % Basophils % % Neutrophils # (1.3-7.7) k/uL Lymphocytes # (1.0-4.8) k/uL Monocytes # (0-1.0) k/uL Eosinophils # (0-0.7) k/uL Basophils # (0-0.2) k/uL PT 9.9 (9.0-12.0) sec INR 0.9 (<1.2) APTT 22.8 (22.0-30.0) sec Sodium 138 (137-145) mmol/L Potassium 3.9 (3.5-5.1) mmol/L Chloride 106 (98-107) mmol/L Carbon Dioxide 20 L (22-30) mmol/L Anion Gap 12 mmol/L BUN 17 (7-17) mg/dL Creatinine 0.76 (0.52-1.04) mg/dL Est GFR (CKD-EPI)AfAm 89 (>60 ml/min/1.73 sqM) Est GFR (CKD-EPI)NonAf 77 (>60 ml/min/1.73 sqM) Glucose 145 H (74-99) mg/dL Plasma Lactic Acid Faraz 1.8 (0.7-2.0) mmol/L Calcium 9.9 (8.4-10.2) mg/dL Total Bilirubin 1.7 H (0.2-1.3) mg/dL AST 30 (14-36) U/L ALT 18 (4-34) U/L Alkaline Phosphatase 76 (38-126) U/L Troponin I (0.000-0.034) ng/mL Total Protein 7.4 (6.3-8.2) g/dL Albumin 4.6 (3.5-5.0) g/dL Lipase 62 (23-300) U/L Coronavirus (PCR) (Not Detectd) Influenza Type A RNA (Not Detectd) Influenza Type B (PCR) (Not Detectd) 09/09/21 Range/Units 08:45 WBC (3.8-10.6) k/uL RBC (3.80-5.40) m/uL Hgb (11.4-16.0) gm/dL Hct (34.0-46.0) % MCV (80.0-100.0) fL MCH (25.0-35.0) pg MCHC (31.0-37.0) g/dL RDW (11.5-15.5) % Plt Count (150-450) k/uL MPV Neutrophils % % Lymphocytes % % Monocytes % % Eosinophils % % Basophils % % Neutrophils # (1.3-7.7) k/uL Lymphocytes # (1.0-4.8) k/uL Monocytes # (0-1.0) k/uL Eosinophils # (0-0.7) k/uL Basophils # (0-0.2) k/uL PT (9.0-12.0) sec INR (<1.2) APTT (22.0-30.0) sec Sodium (137-145) mmol/L Potassium (3.5-5.1) mmol/L Chloride (98-107) mmol/L Carbon Dioxide (22-30) mmol/L Anion Gap mmol/L BUN (7-17) mg/dL Creatinine (0.52-1.04) mg/dL Est GFR (CKD-EPI)AfAm (>60 ml/min/1.73 sqM) Est GFR (CKD-EPI)NonAf (>60 ml/min/1.73 sqM) Glucose (74-99) mg/dL Plasma Lactic Acid Faraz (0.7-2.0) mmol/L Calcium (8.4-10.2) mg/dL Total Bilirubin (0.2-1.3) mg/dL AST (14-36) U/L ALT (4-34) U/L Alkaline Phosphatase (38-126) U/L Troponin I <0.012 (0.000-0.034) ng/mL Total Protein (6.3-8.2) g/dL Albumin (3.5-5.0) g/dL Lipase (23-300) U/L Coronavirus (PCR) (Not Detectd) Influenza Type A RNA (Not Detectd) Influenza Type B (PCR) (Not Detectd) - EKG Data EKG Comments: EKG demonstrates sinus rhythm with a rate of 84. [place] interval 141. QRS 86. QTC 416. No acute ST segment elevations or depressions Disposition Clinical Impression: Nausea and vomiting, Mesenteric panniculitis, Gastroenteritis Disposition: ADMITTED IP TO THIS [facility] Condition: Stable Is patient prescribed a controlled substance at d/c from ED?: No Time of Disposition: 10:53 Decision to Admit Reason: Admit from EC Decision Date: 09/09/21 Decision Time: 10:53
[2021-09-09] MEDS ORDERED: MAG HYDROX/AL HYDROX/SIMETH 30 ML, HYOSCYAMINE ELIXIR 10 ML PO STA ×2 (10:43)
[2021-09-09] MEDS ORDERED: PANTOPRAZOLE 40 MG/10 ML VIAL IVP STA (10:44)
[2021-09-09] MEDS ORDERED: NALOXONE 0.4 MG/ML 1 ML VIAL IV PRN (11:05)
[2021-09-09] MEDS ORDERED: ACETAMINOPHEN TAB 325 MG TAB PO PRN (11:05)
[2021-09-09] MEDS ORDERED: HYDROcodone/APAP 5-325MG 1 EACH TAB PO PRN (11:05)
[2021-09-09] MEDS ORDERED: MORPHINE SULFATE 4 MG/ML SYRINGE IV PRN (11:17)
[2021-09-09] MEDS ORDERED: ONDANSETRON 4 MG/2 ML VIAL IVP PRN (11:17)
[2021-09-09] MEDS: SODIUM CHLORIDE 0.9% 1,000 ML IV SCH ×2 (12:16→23:12)
--- NOTE | 2021-09-09 13:21 | P.HPIM ---
History of Present Illness H&P Date: 09/09/21 History of Presenting Illness: Patient is a very pleasant 75-year-old female with a past medical history of GERD. She presented to the emergency department with the chief complaint of abdominal pain accompanied by nausea, vomiting, and diarrhea. Patient reported the symptoms began a few hours prior to arrival to the emergency department. Patient states she awoke around 6 am with sudden onset severe abdominal pain and nausea followed by approximately 5 or 6 episodes of loose watery stools. Patient reports pain and diarrhea was so severe she came to the hospital. Patient reports upon arrival to the hospital she had her first episode of vomiting. She denies having any recent fevers, chills, diaphoresis, chest pain, palpitations, shortness of breath, experiencing any hematemesis, melena, or hematochezia. She underwent full evaluation in the emergency department. 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 CBC and CMP unremarkable with the exception of elevated total bili of 1.7. Troponin negative at less than 0.012. Covid PCR, influenza A, and influenza B were negative. 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 Review of systems: Pertinent positives and negatives as discussed in HPI, a complete review of systems was performed and all other systems are negative. Physical exam: Vital signs reviewed and stable. General: Nontoxic, no distress and appears stated age. Derm: Skin warm and dry, normal coloration for ethnicity. Head: Atraumatic, normocephalic and symmetric. Eyes: EOMs intact, no lid lag, and anicteric sclera Mouth: no lip lesions, mucus membranes moist Cardiovascular: regular rate and rhythm with normal S1S2, no murmur, positive posterior tibial pulses bilaterally, and cap refill < 2 seconds. Lungs: Respirations even, regular, and unlabored on room air. Lungs CTA bilaterally, no rhonchi, no rales, no wheezing, and no accessory muscle usage. Abdominal: soft, midepigastric and left upper quadrant pain upon palpation, no guarding, no appreciable organomegaly Ext: ROM intact. No gross muscle atrophy, no edema, no contractures Neuro: Speech clear, face symmetrical and CN II-XII grossly intact with no noted focal neuro deficits Psych: Alert and oriented to person, place, time, and situation. Appropriate and pleasant affect. Assessment and Plan of Care: Abdominal pain accompanied by nausea, vomiting, and diarrhea Hyperbilirubinemia likely secondary to above -CT abdomen and pelvis completed revealing fluid-filled small and large bowel possibly secondary to gastroenteritis along with small amount of free pelvic fluid with nonspecific mesenteric inflammatory changes concerning for mesenteric panniculitis. -Symptomatic care and pain management. Morphine as needed for pain/discomfort and Zofran as needed for nausea/vomiting. -Continue with IV fluid hydration. -Continue clear liquid diet, advance as recommended by general surgery team -Consult to Gen. surgery for evaluation secondary to concerns of mesenteric panniculitis -Continue close monitoring with repeat a.m. labs. -Continue PPI with Protonix 40 mg IVP twice daily The patient is admitted with an anticipated less than 2 midnight stay for evaluation of abdominal pain accompanied by nausea, vomiting, and diarrhea. CODE STATUS: Full code DVT prophylaxis: Heparin Discussed with: Patient and RN Anticipated discharge date: Likely tomorrow Anticipated discharge place: Home A total of 40 minutes was spent on the care of this complex patient more than 50% of the time was spent in counseling and care coordination. Past Medical History Past Medical History: GERD/Reflux Additional Past Medical History / Comment(s): hx of varicose veins, hx of covid infection 06/17/20 History of Any Multi-Drug Resistant Organisms: None Reported Past Surgical History: Cholecystectomy Additional Past Surgical History / Comment(s): bilateral cataract surgery; right leg vein stripping Past Anesthesia/Blood Transfusion Reactions: No Reported Reaction Past Psychological History: No Psychological Hx Reported Smoking Status: Never smoker Past Alcohol Use History: None Reported Past Drug Use History: None Reported - Past Family History Mother Family Medical History: No Reported History Medications and Allergies Home Medications Medication Instructions Recorded Confirmed Type No Known Home Medications 09/09/21 09/09/21 History Allergies Allergy/AdvReac Type Severity Reaction Status Date / Time No Known Allergies Allergy Verified 09/09/21 09:21 Physical Exam Vitals: Vital Signs Temp Pulse Resp BP Pulse Ox 09/09/21 07:45 97.0 F L 91 22 145/77 99 Intake and Output 09/08/21 09/09/21 09/09/21 22:59 06:59 14:59 Other: Weight 68.039 kg Results CBC & Chem 7: 09/09/21 08:45 09/09/21 08:45 Labs: Abnormal Lab Results - Last 24 Hours (Table) 09/09/21 09/09/21 Range/Units 08:45 08:45 Hgb 16.3 H (11.4-16.0) gm/dL Hct 49.3 H (34.0-46.0) % Carbon Dioxide 20 L (22-30) mmol/L Glucose 145 H (74-99) mg/dL Total Bilirubin 1.7 H (0.2-1.3) mg/dL
[2021-09-09 13:43] LABS: Appearance,Urine Cloudy (Clear); Bacteria,Urine Rare /hpf; Bilirubin,Urine Negative (Negative); Blood,Urine Small (Negative); Color,Urine Yellow; Glucose,Urine (UA) 2+ (Negative); Hyaline Casts,Urine 3 /lpf (0-2); Ketones,Urine 1+ (Negative); Leukocyte Esterase,Urine Small (Negative); Mucus,Urine Many /hpf; Nitrite,Urine Negative (Negative); PH, Urine 5.5 (5.0-8.0); Protein,Urine Trace (Negative); RBC,Urine 9 /hpf (0-5); Squamous Epithelial Cell,Urine 8 /hpf (0-4); Urobilinogen,Urine <2.0 mg/dL (<2.0); WBC,Urine 7 /hpf (0-5)
--- NOTE | 2021-09-09 15:04 | P.GSCN ---
History of Present Illness Consult date: 09/09/21 History of present illness: CHIEF COMPLAINT: Diarrhea and vomiting HISTORY OF PRESENT ILLNESS: This is a 75-year-old female who presented to the hospital with complaints of diarrhea that started around 6 AM this morning. She had multiple loose watery stools. She denies any blood in the stools or any black stools. She presented to the ER due to the significant amount of diarrhea. While in the ER she started to have vomiting. Since she has been here the diarrhea has stopped as well as the vomiting. She denies any recent traveling she doesn't denies any recent sick contacts. She denies any fever chills or sweats. Past surgical history includes a cholecystectomy. Her white count is normal awaiting influenza screening are negative. She denies any abdominal pain. She denies any cardiac history. She had a CBC scan of the abdomen and pelvis without contrast that showed fluid-filled small and large bowel without significant dilatation, signs of obstruction or wall thickening. This is nonspecific. Gastroenteritis with diarrhea cannot be excluded. Small amount of free pelvic fluid. The described mesenteric changes are nonspecific and could be related to mild inflammatory process like mesenteric panniculitis. Surgical service consult in regards to possible mesenteric panniculitis versus gastroenteritis. PAST MEDICAL HISTORY: GERD PAST SURGICAL HISTORY: Cholecystectomy MEDICATIONS: See list. ALLERGIES: See list. SOCIAL HISTORY: No illicit drug use. REVIEW OF SYSTEMS: CONSTITUTIONAL: Denies fever or chills. HEENT: Denies blurred vision, vision changes, or eye pain. Denies hemoptysis CARDIOVASCULAR: Denies chest pain or pressure. RESPIRATORY: No shortness of breath. GASTROINTESTINAL: See HPI for pertinent findings HEMATOLOGIC: Denies bleeding disorders. GENITOURINARY: Denies any blood in urine or increased urinary frequency. SKIN: Denies pruitis. Denies rash. PHYSICAL EXAM: VITAL SIGNS: Reviewed GENERAL: Well-developed in no acute distress. HEENT: No sclera icterus. Extraocular movements grossly intact. Moist buccal mucosa. Head is atraumatic, normocephalic. No nasal drainage. ABDOMEN: Soft. Nondistended. Nontender. Few small red spots. Possibly flea bites per patient NEUROLOGIC: Alert and oriented. Cranial nerves II through XII grossly intact. LABORATORY DATA: WBC 8.2 Hgb16.3 plt 286 Sodium 138 potassium 3.9 creatinine 0.76 Lactic acid 1.8 Total bili 1.7 LFTs normal Troponin negative Lipase 62 Covid not detected influenza not detected IMAGING: Computed tomography scan findings as stated above ASSESSMENT: 1. Diarrhea and vomiting likely secondary to a gastroenteritis PLAN: -Continue IV fluids -Continue anti-emetics -Continue PPI -Continue to observe -Continue clear liquids -Further recommendations forthcoming per surgeon Thank you for this consultation Physician Fuel Storage Technician note has been reviewed by physician. Signing provider agrees with the documented findings, assessment, and plan of care. Past Medical History Past Medical History: GERD/Reflux Additional Past Medical History / Comment(s): hx of varicose veins, hx of covid infection 06/17/20 History of Any Multi-Drug Resistant Organisms: None Reported Past Surgical History: Cholecystectomy Additional Past Surgical History / Comment(s): bilateral cataract surgery; right leg vein stripping Past Anesthesia/Blood Transfusion Reactions: No Reported Reaction Past Psychological History: No Psychological Hx Reported Smoking Status: Never smoker Past Alcohol Use History: None Reported Past Drug Use History: None Reported - Past Family History Mother Family Medical History: No Reported History Medications and Allergies Home Medications Medication Instructions Recorded Confirmed Type No Known Home Medications 09/09/21 09/09/21 History Allergies Allergy/AdvReac Type Severity Reaction Status Date / Time No Known Allergies Allergy Verified 09/09/21 09:21 Surgical - Exam Vital Signs Temp Pulse Resp BP Pulse Ox 97.0 F L 91 22 145/77 99 09/09/21 07:45 09/09/21 07:45 09/09/21 07:45 09/09/21 07:45 09/09/21 07:45 Results - Labs 09/09/21 08:45 09/09/21 08:45 Abnormal Lab Results - Last 24 Hours (Table) 09/09/21 09/09/21 09/09/21 Range/Units 08:45 08:45 13:28 Hgb 16.3 H (11.4-16.0) gm/dL Hct 49.3 H (34.0-46.0) % Carbon Dioxide 20 L (22-30) mmol/L Glucose 145 H (74-99) mg/dL Total Bilirubin 1.7 H (0.2-1.3) mg/dL Urine Appearance Cloudy H (Clear) Urine Protein Trace H (Negative) Urine Glucose (UA) 2+ H (Negative) Urine Ketones 1+ H (Negative) Urine Blood Small H (Negative) Ur Leukocyte Esterase Small H (Negative) Urine RBC 9 H (0-5) /hpf Urine WBC 7 H (0-5) /hpf Ur Squamous Epith Cells 8 H (0-4) /hpf Urine Bacteria Rare H (None) /hpf Hyaline Casts 3 H (0-2) /lpf Urine Mucus Many H (None) /hpf Diabetes panel 09/09/21 Range/Units 08:45 Sodium 138 (137-145) mmol/L Potassium 3.9 (3.5-5.1) mmol/L Chloride 106 (98-107) mmol/L Carbon Dioxide 20 L (22-30) mmol/L BUN 17 (7-17) mg/dL Creatinine 0.76 (0.52-1.04) mg/dL Glucose 145 H (74-99) mg/dL Calcium 9.9 (8.4-10.2) mg/dL AST 30 (14-36) U/L ALT 18 (4-34) U/L Alkaline Phosphatase 76 (38-126) U/L Total Protein 7.4 (6.3-8.2) g/dL Albumin 4.6 (3.5-5.0) g/dL Calcium panel 09/09/21 Range/Units 08:45 Calcium 9.9 (8.4-10.2) mg/dL Albumin 4.6 (3.5-5.0) g/dL Pituitary panel 09/09/21 Range/Units 08:45 Sodium 138 (137-145) mmol/L Potassium 3.9 (3.5-5.1) mmol/L Chloride 106 (98-107) mmol/L Carbon Dioxide 20 L (22-30) mmol/L BUN 17 (7-17) mg/dL Creatinine 0.76 (0.52-1.04) mg/dL Glucose 145 H (74-99) mg/dL Calcium 9.9 (8.4-10.2) mg/dL Adrenal panel 09/09/21 Range/Units 08:45 Sodium 138 (137-145) mmol/L Potassium 3.9 (3.5-5.1) mmol/L Chloride 106 (98-107) mmol/L Carbon Dioxide 20 L (22-30) mmol/L BUN 17 (7-17) mg/dL Creatinine 0.76 (0.52-1.04) mg/dL Glucose 145 H (74-99) mg/dL Calcium 9.9 (8.4-10.2) mg/dL Total Bilirubin 1.7 H (0.2-1.3) mg/dL AST 30 (14-36) U/L ALT 18 (4-34) U/L Alkaline Phosphatase 76 (38-126) U/L Total Protein 7.4 (6.3-8.2) g/dL Albumin 4.6 (3.5-5.0) g/dL
[2021-09-09] MEDS: PANTOPRAZOLE 40 MG/10 ML VIAL IVP SCH (20:15)
[2021-09-09] MEDS: HEPARIN SODIUM,PORCINE/PF 5,000 UNIT/0.5 ML SYRINGE SQ SCH (23:14)
[2021-09-10] MEDS: SODIUM CHLORIDE 0.9% 1,000 ML IV SCH (06:28)
[2021-09-10 07:49] VITALS: RESP 18; TEMP 98
[2021-09-10] MEDS: HEPARIN SODIUM,PORCINE/PF 5,000 UNIT/0.5 ML SYRINGE SQ SCH (09:27)
[2021-09-10] MEDS: PANTOPRAZOLE 40 MG/10 ML VIAL IVP SCH (09:27)
[2021-09-10 10:37] LABS: Basophils # (A) 0.02 X 10*3/uL (0.00-0.10); Basophils % (A) 0.3 %; Eosinophils % (A) 3.2 %; HCT 39.4 % (37.2-46.3); HGB 12.5 g/dL (12.0-15.0); Immature Grans, Automated 0.3 %; Lymphocytes % (A) 33.2 %; MCH 30.8 pg (27.0-32.0); MCHC 31.7 g/dL (32.0-37.0); Mean Platelet Volume 9.9 fL (9.5-12.2); Monocytes # (A) 0.35 X 10*3/uL (0.20-1.00); Monocytes % (A) 5.5 %; NRBC Per 100 WBC 0 /100 WBCS (0.0-0.0); Neutrophils # (A) 3.64 X 10*3/uL (1.80-7.70); Neutrophils % (A) 57.5 %; Platelet Count 196 X 10*3/uL (140-440); RBC 4.06 X 10*6/uL (4.10-5.20); RDW 12.1 % (11.5-14.5); WBC 6.33 X 10*3/uL (4.50-10.00)
[2021-09-10 11:43] LABS: Albumin 3.5 g/dL (3.8-4.9); Albumin/Globulin Ratio 1.84 (1.60-3.17); Anion Gap 8.7 mmol/L (10.00-18.00); BUN/Creat Ratio 15.38 Ratio (12.00-20.00); Blood Urea Nitrogen 12.3 mg/dL (9.0-27.0); Calcium 8.3 mg/dL (8.7-10.3); Carbon Dioxide 23.3 mmol/L (20.0-27.5); Globulin 1.9 g/dL (1.6-3.3); Non-African American GFR(CKD) 71.6 (60.0-200.0); Potassium 3.9 mmol/L (3.5-5.5); Total Bilirubin 1.4 mg/dL (0.30-1.20); Total Protein 5.4 g/dL (6.2-8.2)
--- NOTE | 2021-09-10 14:03 | P.PN ---
Subjective Progress Note Date: 09/10/21 CHIEF COMPLAINT: Diarrhea and vomiting HISTORY OF PRESENT ILLNESS: Patient's diarrhea and vomiting have resolved. She denies any abdominal pain. She is tolerating a clear liquid diet. Afebrile. WBC is 6.33 hemoglobin 12.5 sodium 141 potassium 3.9 creatinine 0.8 PHYSICAL EXAM: VITAL SIGNS: Reviewed. GENERAL: Well-developed in no acute distress. HEENT: No sclera icterus. Extraocular movements grossly intact. Moist buccal mucosa. Head is atraumatic, normocephalic. ABDOMEN: Soft. Nondistended. Nontender. NEUROLOGIC: Alert and oriented. Cranial nerves II through XII grossly intact. ASSESSMENT: 1. Vomiting and diarrhea likely due to a gastroenteritis. Now resolved PLAN: -Patient can be discharge from surgical standpoint if she tolerates lunch -Agree with advancing the diet Physician Manager Medicare note has been reviewed by physician. Signing provider agrees with the documented findings, assessment, and plan of care. Objective - Vital Signs Vital signs: Vital Signs Temp 98 F 09/10/21 07:46 Pulse 60 09/10/21 07:46 Resp 18 09/10/21 08:36 BP 98/64 09/10/21 07:46 Pulse Ox 94 L 09/10/21 07:46 FiO2 Intake & Output 09/09/21 09/10/21 09/10/21 18:59 06:59 18:59 Intake Total 100 240 Output Total 400 Balance 100 -160 Weight 68.039 kg Intake: Oral 100 240 Output: Urine 400 Other: Voiding Method Toilet Toilet # Voids 2 - Labs CBC & Chem 7: 09/10/21 07:38 09/10/21 07:38 Labs: Abnormal Lab Results - Last 24 Hours (Table) 09/10/21 09/10/21 Range/Units 07:38 07:38 RBC 4.06 L (4.10-5.20) X 10*6/uL MCHC 31.7 L (32.0-37.0) g/dL Anion Gap 8.70 L (10.00-18.00) mmol/L Calcium 8.3 L (8.7-10.3) mg/dL Total Bilirubin 1.40 H (0.30-1.20) mg/dL Total Protein 5.4 L (6.2-8.2) g/dL Albumin 3.5 L (3.8-4.9) g/dL
--- NOTE | 2021-09-10 14:06 | P.DS ---
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 Resolved. Patient tolerating oral intake with no further episodes of nausea, vomiting, or diarrhea. Patient reports full resolution of abdominal pain and abdomen is nontender upon palpation. Patient being discharged home on daily Protonix 40 mg by mouth each morning. Patient also instructed to follow up outpatient with Dr. Lopez and PCP. Hyperbilirubinemia likely secondary to above, improved. Hospital Course: Patient is a very pleasant 75-year-old female with a past medical history of GERD. She presented to the emergency department with the chief complaint of abdominal pain accompanied by nausea, vomiting, and diarrhea. Patient reported the symptoms began a few hours prior to arrival to the emergency department. Patient states she awoke around 6 am with sudden onset severe abdominal pain and nausea followed by approximately 5 or 6 episodes of loose watery stools. Patient reports pain and diarrhea was so severe she came to the hospital. Patient reports upon arrival to the hospital she had her first episode of vomiting. She denies having any recent fevers, chills, diaphoresis, chest pain, palpitations, shortness of breath, experiencing any hematemesis, melena, or annie tochezia. She underwent full evaluation in the emergency department. 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 CBC and CMP unremarkable with the exception of elevated total bili of 1.7. Troponin negative at less than 0.012. Covid PCR, influenza A, and influenza B were negative. 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 Pt was placed on bowel rest with clear liquids only and received continuous IV fluid hydration. Pt condition improving overnight. Patient had no further episodes of nausea, vomiting, or diarrhea since arrival to our facility. Patient denies any further episodes of abdominal pain or discomfort reports full resolution and was nontender upon palpation. Patient's diet advanced from clear liquids to full liquids for breakfast and she tolerated well. Patient's diet and then advanced to regular low fat diet for lunch and patient again tolerated well with no further episodes of nausea, vomiting, or diarrhea. Discussed with general surgery clearing patient from their standpoint and recommending outpatient follow-up. Patient is medically stable at this time. Repeat labs revealed unremarkable CBC and BMP hyperbilirubinemia improving with bilirubin decreasing to 1.40. Vital signs stable. Temp 98F heart rate 89, respiratory rate 18, blood pressure 166/80 and SpO2 of 96% on room air. Patient medically stable for discharge at this time and to follow up outpatient with PCP and general surgery. Physical exam: Vital signs reviewed and stable. General: Nontoxic, no distress and appears stated age. Derm: Skin warm and dry, normal coloration for ethnicity. Head: Atraumatic, normocephalic and symmetric. Eyes: EOMs intact, no lid lag, and anicteric sclera Mouth: no lip lesions, mucus membranes moist Cardiovascular: regular rate and rhythm with normal S1S2, no murmur, positive posterior tibial pulses bilaterally, and cap refill < 2 seconds. Lungs: Respirations even, regular, and unlabored on room air. Lungs CTA bilaterally, no rhonchi, no rales, no wheezing, and no accessory muscle usage. Abdominal: soft, no tenderness upon palpation, no guarding, no appreciable organomegaly. Bowel sounds 4. Ext: ROM intact. No gross muscle atrophy, no edema, no contractures Neuro: Speech clear, face symmetrical and CN II-XII grossly intact with no noted focal neuro deficits Psych: Alert and oriented to person, place, time, and situation. Appropriate and pleasant affect. A total of 35 minutes of time were spent preparing this complex discharge summary. Pt was discharged on 09/10/21 at 1:49 PM. Patient Condition at Discharge: Stable Plan - Discharge Summary New Discharge Prescriptions: New Pantoprazole [Protonix] 40 mg PO DAILY 30 Days #30 tab Discharge Medication List Pantoprazole [Protonix] 40 mg PO DAILY 30 Days #30 tab 09/10/21 [Rx] Follow up Appointment(s)/Referral(s): Ousmane Miller III, MD [Primary Care Provider] - 1-2 days Junior Lopez MD [STAFF PHYSICIAN] - 1 Week (September 16 at 2:30pm) Activity/Diet/Wound Care/Special Instructions: Activity: As tolerated. Take breaks as needed. Diet: Heart healthy and carb consistent diet. Avoid salts, or foods with hidden salts such as canned or boxed foods and frozen dinners. Extra salt makes your heart work harder and traps the fluid in your body for longer. Special Instructions: Take all of your medications as directed and remember to keep all of your doctor's appointments and follow-up as needed. Thank you for allowing us to participate in your care, it was truly a pleasure having you for our patient!!! Discharge Disposition: HOME SELF-CARE
[2021-09-10 14:15] VITALS: BP 166/80; PULSE 89
== END 2021-09-10 14:30 | disposition home or self-care (01) ==
LOC: EC 07:43 → 4SSUR 11:10 → 6NMEDSUR 13:59
PROVIDERS: ADMIT Internal Medicine; ATTEND Internal Medicine
DX: R10.13 Epigastric pain (principal); R11.2 Nausea with vomiting, unspecified; R19.7 Diarrhea, unspecified; E80.6 Other disorders of bilirubin metabolism; I83.90 Asymptomatic varicose veins of unspecified lower extremity; K21.9 Gastro-esophageal reflux disease without esophagitis; Z20.822 Contact with and (suspected) exposure to COVID-19; Z90.49 Acquired absence of other specified parts of digestive tract; Z86.16 Personal history of COVID-19; Z98.42 Cataract extraction status, left eye; Z98.41 Cataract extraction status, right eye
CPT/HCPCS: 96376 ×2; 96361 ×3; 96372 ×2; 96374; 96375; 99285; 36415; 93005; 80053 ×2; 83605; 83690; 83735; 84484; 85025 ×2; 85610; 85730; 81001; 87502; 87635; 74176; G0378 ×3; J2270; J2405; C9113 ×2; J1644 ×2; 96366

== ENCOUNTER 2021-09-12 11:43 | Emergency (ER) | payer MEDICARE, OTHER ==
[2021-09-12 11:51] VITALS: BP 128/63; PULSE 74; RESP 18; TEMP 98
[2021-09-12] MEDS ORDERED: hydrOXYzine HCL 25 MG TAB PO STA (12:19)
--- NOTE | 2021-09-12 12:20 | ED ---
Skin/Abscess/FB HPI - General Chief complaint: Skin/Abscess/Foreign Body Stated complaint: itching all over, poss flea bites Time Seen by Provider: 09/12/21 11:59 Source: patient, RN notes reviewed Mode of arrival: ambulatory Limitations: no limitations - History of Present Illness Initial comments: This a 75-year-old female presents emergency Department chief complaint of a rash. She states she's been down for last few days. She states treated her dog for fleas and states that she initially about is from the fleas but states she still itching. She states she itches all night. She states that he gets worse when she gets warm. She states her is itching over her arms, waist region. Patient states her small bumps. - Related Data Previous Rx's Medication Instructions Recorded Pantoprazole [Protonix] 40 mg PO DAILY 30 Days #30 tab 09/10/21 Permethrin 5% Cream [Elimite] 1 applic TOPICAL ONCE #60 gram 09/12/21 hydrOXYzine HCL [Atarax] 25 mg PO TID PRN #20 tab 09/12/21 Allergies Allergy/AdvReac Type Severity Reaction Status Date / Time No Known Allergies Allergy Verified 09/09/21 09:21 Review of Systems ROS Statement: Those systems with pertinent positive or pertinent negative responses have been documented in the HPI. ROS Other: All systems not noted in ROS Statement are negative. Past Medical History Past Medical History: GERD/Reflux Additional Past Medical History / Comment(s): hx of varicose veins, hx of covid infection 06/17/20 History of Any Multi-Drug Resistant Organisms: None Reported Past Surgical History: Cholecystectomy Additional Past Surgical History / Comment(s): bilateral cataract surgery; right leg vein stripping Past Anesthesia/Blood Transfusion Reactions: No Reported Reaction Past Psychological History: No Psychological Hx Reported Smoking Status: Never smoker Past Alcohol Use History: None Reported Past Drug Use History: None Reported - Past Family History Mother Family Medical History: No Reported History General Exam Limitations: no limitations General appearance: alert, in no apparent distress Head exam: Present: atraumatic, normocephalic, normal inspection Eye exam: Present: normal appearance, PERRL, EOMI. Absent: scleral icterus, conjunctival injection, periorbital swelling ENT exam: Present: normal exam, normal oropharynx, mucous membranes moist Neck exam: Present: normal inspection, full ROM. Absent: tenderness, meningismus, lymphadenopathy Respiratory exam: Present: normal lung sounds bilaterally. Absent: respiratory distress, wheezes, rales, rhonchi, stridor Cardiovascular Exam: Present: regular rate, normal rhythm, normal heart sounds. Absent: systolic murmur, diastolic murmur, rubs, gallop, clicks Neurological exam: Present: alert Skin exam: Present: warm, dry, intact, normal color, rash Course Vital Signs 09/12/21 11:49 Temperature 98 F Pulse Rate 74 Respiratory 18 Rate Blood Pressure 128/63 O2 Sat by Pulse 96 Oximetry Medical Decision Making - Medical Decision Making patient does have noted rash on extremities, waist region there is concern this may be still related from fleas and she's having excoriation no chance for scabies given minutes worsening with warmth and small papular region. Patient will be given Elimite, Atarax. Disposition Clinical Impression: Dermatitis Disposition: HOME SELF-CARE Condition: Stable Instructions (If sedation given, give patient instructions): Dermatitis (ED) Additional Instructions: Please return to the Emergency Department if symptoms worsen or any other concerns. Prescriptions: hydrOXYzine HCL [Atarax] 25 mg PO TID PRN #20 tab PRN Reason: Itching Permethrin 5% Cream [Elimite] 1 applic TOPICAL ONCE #60 gram Is patient prescribed a controlled substance at d/c from ED?: No Referrals: Ousmane Miller III, MD [Primary Care Provider] - 1-2 days Time of Disposition: 12:20
== END 2021-09-12 12:42 | disposition home or self-care (01) ==
LOC: EC 11:43
DX: L30.9 Dermatitis, unspecified (principal)
CPT/HCPCS: 99282

== ENCOUNTER → 2022-01-03 | Outpatient (CLI) | payer MEDICARE, OTHER ==
--- NOTE | 2022-01-03 17:44 | MM ---
Reason for Exam: Screening (asymptomatic). Last screening mammogram was performed 12 month(s) ago. Patient History: Menarche at age 16. First Full-Term at age 17. Postmenopausal. Daughter had breast cancer, age 42. Risk Values: Adrianna 5 year model risk: 3.0%. NCI Lifetime model risk: 5.6%. Prior Study Comparison: 11/26/2019 Bilateral Screening Mammogram, [facility]. 12/19/2019 Right Diagnostic Mammogram, [facility]. 12/30/2020 Bilateral Screening Mammogram, [facility]. Tissue Density: There are scattered fibroglandular densities. Findings: Analyzed By CAD. There is no suspicious group of microcalcifications or new suspicious mass in either breast. Overall Assessment: Benign, BI-RAD 2 Management: Screening Mammogram of both breasts in 1 year. A clinical breast exam by your physician is recommended on an annual basis and results should be correlated with mammographic findings. Electronically signed and approved by: César Simms M.D. Radiologis
== END | disposition home or self-care (01) ==
LOC: RADMAMWWP 08:53
PROVIDERS: ATTEND Family Medicine
DX: Z12.31 Encounter for screening mammogram for malignant neoplasm of breast (principal); Z78.0 Asymptomatic menopausal state; Z80.3 Family history of malignant neoplasm of breast
CPT/HCPCS: 77063; 77067

== ENCOUNTER 2022-02-27 01:27 | Emergency (ER) | payer MEDICARE, OTHER ==
[2022-02-27 01:47] VITALS: TEMP 97
[2022-02-27] MEDS ORDERED: ACETAMINOPHEN TAB 500 MG TAB PO STA (01:52)
--- NOTE | 2022-02-27 02:11 | ED ---
Abdominal Pain HPI - General Chief Complaint: Abdominal Pain Stated Complaint: anxiety Time Seen by Provider: 02/27/22 01:29 Source: patient, family Mode of arrival: EMS Limitations: no limitations - History of Present Illness Initial Comments: To be 6-year-old female presents emergency Department with reported epigastric discomfort. States that she has frequent episodes were she feels like she gets a "gas bubble" in her epigastric region. It will cause her significant discomfort which will cause her to become anxious. She reports that she will b elch which will improve her symptoms. States that last night she awoke with the symptoms and that it made her extremely anxious. She placed a warm compress to the site. She was able to pass some gas and did have some improvement in her symptoms. Informed her daughter that she was having symptoms to called an ambulance. She denies any previous history of cardiac disease. No chest pain. Denies any nausea or vomiting. No black or bloody stools. She has never had the symptoms evaluated. No history of EGD. Denies fevers, chills or cough. No shortness of breath. No other alleviating, precipitating or modifying factors - Related Data Previous Rx's Medication Instructions Recorded Pantoprazole [Protonix] 40 mg PO DAILY 30 Days #30 tab 09/10/21 Permethrin 5% Cream [Elimite] 1 applic TOPICAL ONCE #60 gram 09/12/21 hydrOXYzine HCL [Atarax] 25 mg PO TID PRN #20 tab 09/12/21 Allergies Allergy/AdvReac Type Severity Reaction Status Date / Time No Known Allergies Allergy Verified 09/09/21 09:21 Review of Systems ROS Statement: Those systems with pertinent positive or pertinent negative responses have been documented in the HPI. ROS Other: All systems not noted in ROS Statement are negative. Past Medical History Past Medical History: GERD/Reflux Additional Past Medical History / Comment(s): hx of varicose veins, hx of covid infection 06/17/20 History of Any Multi-Drug Resistant Organisms: None Reported Past Surgical History: Cholecystectomy Additional Past Surgical History / Comment(s): bilateral cataract surgery; right leg vein stripping Past Anesthesia/Blood Transfusion Reactions: No Reported Reaction Past Psychological History: No Psychological Hx Reported Smoking Status: Never smoker Past Alcohol Use History: None Reported Past Drug Use History: None Reported - Past Family History Mother Family Medical History: No Reported History General Exam Limitations: no limitations General appearance: alert, in no apparent distress Head exam: Present: atraumatic, normocephalic, normal inspection Eye exam: Present: normal appearance, PERRL, EOMI. Absent: scleral icterus, conjunctival injection, periorbital swelling ENT exam: Present: normal exam, mucous membranes moist Neck exam: Present: normal inspection. Absent: tenderness, meningismus, lymphadenopathy Respiratory exam: Present: normal lung sounds bilaterally. Absent: respiratory distress, wheezes, rales, rhonchi, stridor Cardiovascular Exam: Present: regular rate, normal rhythm, normal heart sounds. Absent: systolic murmur, diastolic murmur, rubs, gallop, clicks GI/Abdominal exam: Present: soft, tenderness (mild epigastric), normal bowel sounds. Absent: distended, guarding, rebound, rigid Extremities exam: Present: normal inspection, full ROM, normal capillary refill. Absent: tenderness, pedal edema, joint swelling, calf tenderness Back exam: Present: normal inspection Neurological exam: Present: alert, oriented X3, CN II-XII intact Psychiatric exam: Present: normal affect, normal mood Skin exam: Present: warm, dry, intact, normal color. Absent: rash Course Vital Signs 02/27/22 02/27/22 01:35 04:16 Temperature 97.0 F L Pulse Rate 74 63 Respiratory 20 16 Rate Blood Pressure 122/61 111/54 O2 Sat by Pulse 95 95 Oximetry Medical Decision Making - Medical Decision Making Upon arrival patient was placed into room 15. A thorough history and physical exam was performed. Patient placed on continuous pulse ox and cardiac monitori ng. A 12-lead EKG was obtained. She was given a gram of Tylenol for pain control. Laboratory studies are conducted and reviewed which are within normal limits. Chest x-ray demonstrates no acute process. Discuss results with the patient. She is eager to go home at this time. Instructed that she needs to follow-up with her primary care doctor in 2-4 days. Did recommend that the patient have an EGD as she does have recurrent symptoms. Patient was agreeable to this. Instructed to return for any new or worsening symptoms. Patient discharged home in stable condition - Lab Data Result diagrams: 02/27/22 02:05 02/27/22 02:05 Lab Results 02/27/22 02/27/22 02/27/22 Range/Units 02:05 02:05 02:05 WBC 8.1 (3.8-10.6) k/uL RBC 4.26 (3.80-5.40) m/uL Hgb 13.8 (11.4-16.0) gm/dL Hct 39.8 (34.0-46.0) % MCV 93.4 (80.0-100.0) fL MCH 32.4 (25.0-35.0) pg MCHC 34.7 (31.0-37.0) g/dL RDW 12.3 (11.5-15.5) % Plt Count 185 (150-450) k/uL MPV 7.7 Neutrophils % 84 % Lymphocytes % 10 % Monocytes % 4 % Eosinophils % 1 % Basophils % 0 % Neutrophils # 6.9 (1.3-7.7) k/uL Lymphocytes # 0.8 L (1.0-4.8) k/uL Monocytes # 0.4 (0-1.0) k/uL Eosinophils # 0.1 (0-0.7) k/uL Basophils # 0.0 (0-0.2) k/uL PT 10.1 (9.0-12.0) sec INR 0.9 (<1.2) APTT 23.7 (22.0-30.0) sec Sodium 136 L (137-145) mmol/L Potassium 4.2 (3.5-5.1) mmol/L Chloride 106 (98-107) mmol/L Carbon Dioxide 25 (22-30) mmol/L Anion Gap 5 mmol/L BUN 12 (7-17) mg/dL Creatinine 0.62 (0.52-1.04) mg/dL Est GFR (CKD-EPI)AfAm >90 (>60 ml/min/1.73 sqM) Est GFR (CKD-EPI)NonAf 87 (>60 ml/min/1.73 sqM) Glucose 151 H (74-99) mg/dL Calcium 8.7 (8.4-10.2) mg/dL Magnesium 1.9 (1.6-2.3) mg/dL Total Bilirubin 1.7 H (0.2-1.3) mg/dL AST 34 (14-36) U/L ALT 17 (4-34) U/L Alkaline Phosphatase 50 (38-126) U/L Troponin I (0.000-0.034) ng/mL Total Protein 6.1 L (6.3-8.2) g/dL Albumin 3.6 (3.5-5.0) g/dL 02/27/22 Range/Units 02:05 WBC (3.8-10.6) k/uL RBC (3.80-5.40) m/uL Hgb (11.4-16.0) gm/dL Hct (34.0-46.0) % MCV (80.0-100.0) fL MCH (25.0-35.0) pg MCHC (31.0-37.0) g/dL RDW (11.5-15.5) % Plt Count (150-450) k/uL MPV Neutrophils % % Lymphocytes % % Monocytes % % Eosinophils % % Basophils % % Neutrophils # (1.3-7.7) k/uL Lymphocytes # (1.0-4.8) k/uL Monocytes # (0-1.0) k/uL Eosinophils # (0-0.7) k/uL Basophils # (0-0.2) k/uL PT (9.0-12.0) sec INR (<1.2) APTT (22.0-30.0) sec Sodium (137-145) mmol/L Potassium (3.5-5.1) mmol/L Chloride (98-107) mmol/L Carbon Dioxide (22-30) mmol/L Anion Gap mmol/L BUN (7-17) mg/dL Creatinine (0.52-1.04) mg/dL Est GFR (CKD-EPI)AfAm (>60 ml/min/1.73 sqM) Est GFR (CKD-EPI)NonAf (>60 ml/min/1.73 sqM) Glucose (74-99) mg/dL Calcium (8.4-10.2) mg/dL Magnesium (1.6-2.3) mg/dL Total Bilirubin (0.2-1.3) mg/dL AST (14-36) U/L ALT (4-34) U/L Alkaline Phosphatase (38-126) U/L Troponin I <0.012 (0.000-0.034) ng/mL Total Protein (6.3-8.2) g/dL Albumin (3.5-5.0) g/dL - EKG Data EKG Comments: EKG demonstrates sinus rhythm with a rate of 70. NM interval 126. QRS 13. QTC of 438. No acute ST segment elevations or depressions. EKG interpreted by myself Disposition Clinical Impression: Epigastric pain Disposition: HOME SELF-CARE Condition: Stable Instructions (If sedation given, give patient instructions): Abdominal Pain (ED) Additional Instructions: You should see the GI doctor or surgeon to have an EGD. Return for any new or worsening symptoms Is patient prescribed a controlled substance at d/c from ED?: No Referrals: Tigist Dove MD [STAFF PHYSICIAN] - 1-2 days Junior Lopez MD [STAFF PHYSICIAN] - 1-2 days Time of Disposition: 04:04
[2022-02-27 02:23] LABS: Basophils % (A) 0 %; Eosinophils # (A) 0.1 k/uL (0-0.7); Eosinophils % (A) 1 %; HCT 39.8 % (34.0-46.0); HGB 13.8 gm/dL (11.4-16.0); Lymphocytes # (A) 0.8 k/uL (1.0-4.8); Lymphocytes % (A) 10 %; MCH 32.4 pg (25.0-35.0); MCHC 34.7 g/dL (31.0-37.0); MCV 93.4 fL (80.0-100.0); Mean Platelet Volume 7.7; Monocytes # (A) 0.4 k/uL (0-1.0); Monocytes % (A) 4 %; Neutrophils # (A) 6.9 k/uL (1.3-7.7); Neutrophils % (A) 84 %; Platelet Count 185 k/uL (150-450); RBC 4.26 m/uL (3.80-5.40); RDW 12.3 % (11.5-15.5); WBC 8.1 k/uL (3.8-10.6)
[2022-02-27 02:32] LABS: INR 0.9 (<1.2); Partial Thromboplastin Time 23.7 sec (22.0-30.0); Prothrombin Time 10.1 sec (9.0-12.0)
--- NOTE | 2022-02-27 02:40 | XR ---
EXAMINATION TYPE: XR chest 2V DATE OF EXAM: 02/27/2022 COMPARISON: 06/26/2020 HISTORY: Short of breath TECHNIQUE: 2 views FINDINGS: Heart and mediastinum are normal. Lungs are clear of infiltrate. No heart failure. There is a mild thoracic dextroscoliosis. IMPRESSION: No active cardiopulmonary disease. There is clearing of the lower lobe mild pulmonary inf iltrates and atelectasis.
[2022-02-27 02:43] LABS: ALT 17 U/L (4-34); AST 34 U/L (14-36); African American GFR (CKD) >90 (>60 ml/min/1.73 sqM); Albumin 3.6 g/dL (3.5-5.0); Alkaline Phosphatase 50 U/L (38-126); Anion Gap 5 mmol/L; Blood Urea Nitrogen 12 mg/dL (7-17); Calcium 8.7 mg/dL (8.4-10.2); Carbon Dioxide 25 mmol/L (22-30); Chloride 106 mmol/L (98-107); Glucose 151 mg/dL (74-99); Magnesium 1.9 mg/dL (1.6-2.3); Non-African American GFR(CKD) 87 (>60 ml/min/1.73 sqM); Sodium 136 mmol/L (137-145); Total Bilirubin 1.7 mg/dL (0.2-1.3); Total Protein 6.1 g/dL (6.3-8.2)
[2022-02-27 03:43] LABS: Potassium 4.2 mmol/L (3.5-5.1)
[2022-02-27 04:17] VITALS: BP 111/54; PULSE 63; RESP 16
== END 2022-02-27 04:17 | disposition home or self-care (01) ==
LOC: EC 01:27
DX: R10.13 Epigastric pain (principal); K21.9 Gastro-esophageal reflux disease without esophagitis; Z79.899 Other long term (current) drug therapy; Z20.822 Contact with and (suspected) exposure to COVID-19; Z86.16 Personal history of COVID-19
CPT/HCPCS: 36415; 71046; 80053; 83735; 84484; 85025; 85610; 85730; 93005; 99285

== ENCOUNTER → 2023-01-05 | Outpatient (CLI) | payer MEDICARE, OTHER ==
--- NOTE | 2023-01-05 14:43 | BD ---
EXAMINATION TYPE: Axial Bone Density DATE OF EXAM: 01/05/2023 CLINICAL HISTORY: 77 years old Female. ICD-10 CODE: M89.9 DISORDER OF BONE Height: 59 Weight: 149 FRAX RISK QUESTIONS: History of Fracture in Adulthood: yes RISK FACTORS HISTORY OF: History of Wrist Fracture: right wrist 2019, with surgical repair Postmenopausal woman: at 52 Hyperparathyroidism: no Adrenal Insufficiency: no MEDICATIONS: Additional Medications: nothing to note here Additional History: nothing additional to note. EXAM MEASUREMENTS: Bone mineral densitometry was performed using the [employer] System. Bone mineral density as measured about the Lumbar spine is: ----- L1-L4(G/cm2): 0.993 T Score Values are as follows: ----- L1: -2.7 ----- L2: -1.7 ----- L3: -1.0 ----- L4: -1.2 ----- L1-L4: -1.6 Z Score Values are as follows: ----- L1: -0.9 ----- L2: 0.1 ----- L3: 0.7 ----- L4: 0.5 ----- L1-L4: 0.2 Bone mineral density has: Decreased -3.6% since study of: 11.26.2019 Bone mineral density about the R hip (g/cm2): 0.802 Bone mineral density about the L hip (g/cm2): 0.785 T Score values are as follows: -----R Neck: -1.4 -----L Neck: -2.1 -----R Total: -*1.6 -----L Total: -1.8 Z Score values are as follows: -----R Neck: 0.6 -----L Neck: -0.1 -----R Total: 0.2 -----L Total: 0.1 Bone mineral density has: Decreased -12.0% since study of: 11.26.2019 FRAX%s: The graph provided illustrates a 21.7% chance for a major osteoporotic fx and a 5.8% chance f or the hips probability for fx in 10 years time. IMPRESSION: Osteoporosis (T Score less than -2.5). There is increased fracture risk and therapy is usually indicated based on age. Re-Screen 1-2 years. NOTE: T-SCORE=SD OF THE YOUNG ADULT MEAN.
--- NOTE | 2023-01-06 11:48 | MM ---
Reason for Exam: Screening (asymptomatic). Last screening mammogram was performed 12 month(s) ago. Patient History: Menarche at age 16. First Full-Term at age 17. Postmenopausal. Daughter had breast cancer, age 42. Risk Values: Adrianna 5 year model risk: 2.9%. NCI Lifetime model risk: 5.2%. Prior Study Comparison: 12/19/2019 Right Diagnostic Mammogram, [facility]. 12/30/2020 Bilateral Screening Mammogram, [facility]. 01/03/2022 Bilateral MG 3D screening mammo w/cad, [facility]. Tissue Density: There are scattered fibroglandular densities. Findings: Analyzed By CAD. There is no suspicious group of microcalcifications or new suspicious mass in either breast. Overall Assessment: Benign, BI-RAD 2 Management: Screening Mammogram of both breasts in 1 year. . Patient should continue monthly self-breast exams. A clinical breast exam by your physician is recommended on an annual basis. This exam should not preclude additional follow-up of suspicious palpable abnormalities. Note on Adrianna scores and lifetime risk: 1. A Adrianna score greater than 3% is considered moderate risk. If this is the case, consider specialist referral to assess eligibility for a risk reducing agent. 2. If overall lifetime risk for the development of breast cancer is 20% or higher, the patient may qualify for future screening with alternating mammogram and breast MRI. Electronically signed and approved by: Naveed Bauman M.D. Radiologis
== END | disposition home or self-care (01) ==
LOC: RADMAMWWP 09:57
PROVIDERS: ATTEND Family Medicine
DX: Z12.31 Encounter for screening mammogram for malignant neoplasm of breast (principal); M81.0 Age-related osteoporosis without current pathological fracture; M85.89 Other specified disorders of bone density and structure, multiple sites; Z78.0 Asymptomatic menopausal state; Z80.3 Family history of malignant neoplasm of breast
CPT/HCPCS: 77063; 77067; 77080

== ENCOUNTER → 2023-04-04 | Outpatient (CLI) | payer MEDICARE, OTHER ==
--- NOTE | 2023-04-05 22:58 | MR ---
EXAMINATION TYPE: MR brain wo con DATE OF EXAM: 04/04/2023 3:19 PM CLINICAL INDICATION:Female, 77 years old with history of R41.3, CVA, short term memory issues COMPARISON: None. TECHNIQUE: Multi planar, multi sequence imaging was performed through the brain including: T1, T2, In version recovery, Diffusion weighted imaging, and gradient echo imaging. No gadolinium was given. FINDINGS: Mild cerebral atrophy with proportional dilation of ventricular system. Scattered foci of high T2 s ignal intensity are seen within the periventricular white matter. Midline structures show no abnormal ity. Diffusion-weighted imaging shows no evidence of restricted diffusion. The susceptibility weighte d images do not reveal any evidence for micro-hemorrhage. Right subcutaneous high T2 probable sebaceous cyst. The bone marrow signal is within normal limits. Paranasal sinuses and mastoid air cells: No significant paranasal sinus disease. Visualized orbits: Bilaterally aphakia. IMPRESSION: 1. No evidence of intracranial mass or acute/subacute infarct. 2. Nonspecific white matter changes, likely secondary to small vessel ischemic disease.
== END | disposition home or self-care (01) ==
LOC: RADMRIMAIN 13:51
PROVIDERS: ATTEND Psychiatry & Neurology Neurology
DX: R90.82 White matter disease, unspecified (principal); R41.3 Other amnesia
CPT/HCPCS: 70551; 82607; 82746; 84207

== ENCOUNTER 2023-05-29 09:27 | Emergency (ER) | payer MEDICARE, OTHER ==
--- NOTE | 2023-05-29 10:19 | ED ---
Skin/Abscess/FB HPI - General Chief complaint: Skin/Abscess/Foreign Body Stated complaint: Cyst on R cheek Time Seen by Provider: 05/29/23 09:39 Source: patient, family, RN notes reviewed Mode of arrival: ambulatory Limitations: no limitations - History of Present Illness Initial comments: Patient is a 77-year-old female presented to ER with a chief complaint of right cheek cyst. Patient reports this started about a week ago and was seen by primary care on . Cyst was lanced on and patient was started on Keflex. She states it has gotten increasingly larger and more painful. Denies any fevers or chills. - Related Data Previous Rx's Medication Instructions Recorded Pantoprazole [Protonix] 40 mg PO DAILY 30 Days #30 tab 09/10/21 Permethrin 5% Cream [Elimite] 1 applic TOPICAL ONCE #60 gram 09/12/21 hydrOXYzine HCL [Atarax] 25 mg PO TID PRN #20 tab 09/12/21 Sulfamethox-Tmp 800-160Mg [Bactrim 1 each PO Q12HR 10 Days #20 tab 05/29/23 Ds] Allergies Allergy/AdvReac Type Severity Reaction Status Date / Time No Known Allergies Allergy Verified 09/09/21 09:21 Review of Systems ROS Statement: Those systems with pertinent positive or pertinent negative responses have been documented in the HPI. ROS Other: All systems not noted in ROS Statement are negative. Past Medical History Past Medical History: Dementia, GERD/Reflux Additional Past Medical History / Comment(s): hx of varicose veins, hx of covid infection 06/17/20 History of Any Multi-Drug Resistant Organisms: None Reported Past Surgical History: Cholecystectomy Additional Past Surgical History / Comment(s): bilateral cataract surgery; right leg vein stripping Past Anesthesia/Blood Transfusion Reactions: No Reported Reaction Past Psychological History: No Psychological Hx Reported Smoking Status: Never smoker Past Alcohol Use History: None Reported Past Drug Use History: None Reported - Past Family History Mother Family Medical History: No Reported History General Exam Limitations: no limitations General appearance: alert, in no apparent distress Head exam: Present: atraumatic, normocephalic, normal inspection Eye exam: Present: normal appearance, PERRL, EOMI. Absent: scleral icterus, conjunctival injection, periorbital swelling ENT exam: Present: normal exam, normal oropharynx, mucous membranes moist Neck exam: Present: normal inspection. Absent: tenderness, meningismus, lymphadenopathy Respiratory exam: Present: normal lung sounds bilaterally. Absent: respiratory distress, wheezes, rales, rhonchi, stridor Cardiovascular Exam: Present: regular rate, normal rhythm, normal heart sounds. Absent: systolic murmur, diastolic murmur, rubs, gallop, clicks Neurological exam: Present: alert, oriented X3, CN II-XII intact Psychiatric exam: Present: normal affect, normal mood Skin exam: Present: warm, dry, intact, other (2cm cyst on right cheek with surrounding erythema and induration. tender to touch.) Course Vital Signs 05/29/23 05/29/23 05/29/23 09:30 11:39 12:53 Temperature 97.4 F L 97.1 F L 97.5 F L Pulse Rate 58 L 64 60 Respiratory 16 20 Rate Blood Pressure 117/73 133/71 O2 Sat by Pulse 98 98 Oximetry Procedures - Incision & Drainage Consent Obtained: verbal consent Indication: abscess Site: face Size (cm): 2 Anesthetic Used: lidocaine 1% Amount (mLs): 1 I&D Cleaning Method: Alcohol Wipe Sterile Field Used?: Yes Ultrasound used: No Needle Aspiration Performed?: Yes (purluent drainge and blood) I&D Drainage Obtained: Pus, Blood Insertion of drain: No Culture Obtained?: No Complications: pain Patient Tolerated Procedure: well, no complications Medical Decision Making - Medical Decision Making Was pt. sent in by a medical professional or institution (, PA, AMMUNITION ASSEMBLY II LABORER, urgent care, hospital, or [place] health [facility] facility...) When possible be specific @ -No Did you speak to anyone other than the patient for history (EMS, parent, family, police, friend...)? What history was obtained from this source @ -Daughter provided HPI and past medical history. Did you review nursing and triage notes (agree or disagree)? Why? @ -I reviewed and agree with nursing and triage notes Were old charts reviewed (outside hosp., previous admission, EMS record, old EKG, old radiological studies, urgent care reports/EKG's, [place] [facility] facility records)? Report findings @ -No old charts were reviewed Differential Diagnosis (chest pain, altered mental status, abdominal pain women, abdominal pain men, vaginal bleeding, weakness, fever, dyspnea, syncope, headache, dizziness, GI bleed, back pain, seizure, CVA, palpatations, mental health, musculoskeletal)? @ -Laceration, abrasion, abscess, cyst, cellulitis, this is not meant to be all-inclusive EKG interpreted by me (3pts min.). @ -None X-rays interpreted by me (1pt min.). @ -None done CT interpreted by me (1pt min.). @ -CT face significant for an 8.4 mm right cheek abscess. With surrounding fat stranding. U/S interpreted by me (1pt. min.). @ -None done What testing was considered but not performed or refused? (CT, X-rays, U/S, labs)? Why? @ -None What meds were considered but not given or refused? Why? @ -None Did you discuss the management of the patient with other professionals (professionals i.e. , PA, AMMUNITION ASSEMBLY II LABORER, lab, RT, psych nurse, health and social care teacher, digital account manager, teacher, chief supply chain officer, showcase maker)? Give summary @ -No Was smoking cessation discussed for >3mins.? @ -No Was critical care preformed (if so, how long)? @ -No Were there social determinants of health that impacted care today? How? (Homelessness, low income, unemployed, alcoholism, drug addiction, transportation, low edu. Level, literacy, decrease access to med. care, long-term, rehab)? @ -No Was there de-escalation of care discussed even if they declined (Discuss DNR or withdrawal of care, Hospice)? DNR status @ -No What co-morbidities impacted this encounter? (DM, HTN, Smoking, COPD, CAD, Cancer, CVA, ARF, Chemo, Hep., AIDS, mental health diagnosis, sleep apnea, morbid obesity)? @ -None Was patient admitted / discharged? Hospital course, mention meds given and route, prescriptions, significant lab abnormalities, going to OR and other pertinent info. @ -Discharge. Patient is a 77-year-old female presented to ER with chief complaint of right cheek cyst. History and physical exam completed. Vitals stable. Patient no signs of acute distress. Patient did have a 2 cm cyst with surrounding erythema and tenderness to right cheek. Labs obtained unremarkable. CT face significant for 8.4 mm right cheek abscess with surrounding fat stranding. Results discussed with patient, all questions answered. Patient elected to have needle aspiration. Aspiration performed with purulent drainage. Patient tolerated procedure well. Patient started on Bactrim and advised to continue Keflex. Strict return parameters discussed. Patient will be discharged stable condition with follow-up to PCP. Patient and daughter, at bedside expressed understanding and agreement with care plan. Case discussed with ED attending, Dr. Mo. Undiagnosed new problem with uncertain prognosis? @ -No Drug Therapy requiring intensive monitoring for toxicity (Heparin, Nitro, Insulin, Cardizem)? @ -No Were any procedures done? @ -Yes Diagnosis/symptom? @ -Abscess Acute, or Chronic, or Acute on Chronic? @ -Acute Uncomplicated (without systemic symptoms) or Complicated (systemic symptoms)? @ -Uncomplicated Side effects of treatment? @ -No Exacerbation, Progression, or Severe Exacerbation? @ -No Poses a threat to life or bodily function? How? (Chest pain, USA, MA, pneumonia, PE, COPD, DKA, ARF, appy, cholecystitis, CVA, Diverticulitis, Homicidal, Suicidal, threat to staff... and all critical care pts) @ -No - Lab Data Result diagrams: 05/29/23 10:19 05/29/23 10:19 Lab Results 05/29/23 05/29/23 05/29/23 Range/Units 10:19 10:19 10:19 WBC 5.8 (3.8-10.6) k/uL RBC 4.52 (3.80-5.40) m/uL Hgb 14.4 (11.4-16.0) gm/dL Hct 43.7 (34.0-46.0) % MCV 96.6 (80.0-100.0) fL MCH 31.7 (25.0-35.0) pg MCHC 32.8 (31.0-37.0) g/dL RDW 12.5 (11.5-15.5) % Plt Count 247 (150-450) k/uL MPV 7.5 Neutrophils % 63 % Lymphocytes % 29 % Monocytes % 5 % Eosinophils % 2 % Basophils % 0 % Neutrophils # 3.6 (1.3-7.7) k/uL Lymphocytes # 1.7 (1.0-4.8) k/uL Monocytes # 0.3 (0-1.0) k/uL Eosinophils # 0.1 (0-0.7) k/uL Basophils # 0.0 (0-0.2) k/uL Sodium 142 (137-145) mmol/L Potassium 3.6 (3.5-5.1) mmol/L Chloride 105 (98-107) mmol/L Carbon Dioxide 34 H (22-30) mmol/L Anion Gap 3 mmol/L BUN 13 (7-17) mg/dL Creatinine 0.77 (0.52-1.04) mg/dL Est GFR (CKD-EPI)AfAm 86 (>60 ml/min/1.73 sqM) Est GFR (CKD-EPI)NonAf 74 (>60 ml/min/1.73 sqM) Glucose 94 (74-99) mg/dL Plasma Lactic Acid Faraz 1.0 (0.7-2.0) mmol/L Calcium 8.9 (8.4-10.2) mg/dL Total Bilirubin 1.1 (0.2-1.3) mg/dL AST 34 (14-36) U/L ALT 17 (4-34) U/L Alkaline Phosphatase 65 (38-126) U/L C-Reactive Protein 1.1 H (<1.0) mg/dL Total Protein 6.4 (6.3-8.2) g/dL Albumin 3.7 (3.5-5.0) g/dL - Radiology Data Radiology results: report reviewed, image reviewed Disposition Clinical Impression: Abscess Disposition: HOME SELF-CARE Condition: Stable Instructions (If sedation given, give patient instructions): Abscess Incision and Drainage (ED), Abscess (ED) Additional Instructions: Please complete full course of antibiotics. Follow-up with PCP in next 1-2 days. Return to the ER for any new or worsening symptoms. Prescriptions: Sulfamethox-Tmp 800-160Mg [Bactrim Ds] 1 each PO Q12HR 10 Days #20 tab Is patient prescribed a controlled substance at d/c from ED?: No Referrals: Dustin Jj DO [Primary Care Provider] - 1-2 days Time of Disposition: 12:23
[2023-05-29 10:38] LABS: Basophils % (A) 0 %; Eosinophils # (A) 0.1 k/uL (0-0.7); Eosinophils % (A) 2 %; HCT 43.7 % (34.0-46.0); HGB 14.4 gm/dL (11.4-16.0); Lymphocytes # (A) 1.7 k/uL (1.0-4.8); Lymphocytes % (A) 29 %; MCH 31.7 pg (25.0-35.0); MCHC 32.8 g/dL (31.0-37.0); MCV 96.6 fL (80.0-100.0); Mean Platelet Volume 7.5; Monocytes # (A) 0.3 k/uL (0-1.0); Monocytes % (A) 5 %; Neutrophils # (A) 3.6 k/uL (1.3-7.7); Neutrophils % (A) 63 %; Platelet Count 247 k/uL (150-450); RBC 4.52 m/uL (3.80-5.40); RDW 12.5 % (11.5-15.5); WBC 5.8 k/uL (3.8-10.6)
[2023-05-29 10:52] LABS: ALT 17 U/L (4-34); AST 34 U/L (14-36); African American GFR (CKD) 86 (>60 ml/min/1.73 sqM); Albumin 3.7 g/dL (3.5-5.0); Alkaline Phosphatase 65 U/L (38-126); Anion Gap 3 mmol/L; Blood Urea Nitrogen 13 mg/dL (7-17); C Reactive Protein 1.1 mg/dL (<1.0); Calcium 8.9 mg/dL (8.4-10.2); Carbon Dioxide 34 mmol/L (22-30); Chloride 105 mmol/L (98-107); Glucose 94 mg/dL (74-99); Non-African American GFR(CKD) 74 (>60 ml/min/1.73 sqM); Potassium 3.6 mmol/L (3.5-5.1); Sodium 142 mmol/L (137-145); Total Bilirubin 1.1 mg/dL (0.2-1.3); Total Protein 6.4 g/dL (6.3-8.2)
--- NOTE | 2023-05-29 12:10 | CT ---
EXAMINATION TYPE: CT facial bones w con CT DLP: 510.8 mGycm, Automated exposure control for dose reduction was used. DATE OF EXAM: 05/29/2023 11:37 AM COMPARISON: None. CLINICAL INDICATION:Female, 77 years old with history of right cheek cyst; PHH, abscess/cyst right ch [place]. TECHNIQUE: Multiple unenhanced axial CT images were obtained of the facial bones soft tissue and bone windows. Coronal, axial and sagittal reformatted images were also provided in soft tissue and bone windows and submitted for interpretation. Additional 3-D reformatted images were obtained on a [employer] workstation. . Contrast used:100ml mL of Isovue 300 with IV Contrast, (none if empty) Oral contrast used: (none if empty) FINDINGS: Circumscribed fluid collection the right cheek measuring up to 8 mm with surrounding fat st randing. This is immediately adjacent to the epidermis. There is no evidence of fracture, subluxation , or dislocation. Bilaterally aphakia. The intraconal and extra coronal fat is maintained. Visualized intracranial vascular structures are patent. Mild intracranial atherosclerosis. The temporal-[place]ib[place] joints appear symmetric. The visualized portion of the paranasal sinuses appear clear. IMPRESSION: Right cheek 8 mm fluid collection possibly representing abscess versus sebaceous cyst.
[2023-05-29] MEDS: LIDOCAINE 1% INJ 10MG/ML (20 ML MDV) SQ ONE (12:23)
[2023-05-29 12:56] VITALS: BP 133/71; PULSE 60; RESP 20; TEMP 97.5
== END 2023-05-29 15:19 | disposition home or self-care (01) ==
LOC: EC 09:27
DX: L02.01 Cutaneous abscess of face (principal); Z86.16 Personal history of COVID-19
CPT/HCPCS: 36415; 80053; 83605; 85025; 86140; 70487; 10060; 99284; J2001; Q9967

== ENCOUNTER 2023-06-10 13:45 | Inpatient (IN) | payer MEDICARE, OTHER ==
--- NOTE | 2023-06-10 14:36 | ED ---
Weakness HPI - General Chief complaint: Recheck/Abnormal Lab/Rx Stated complaint: not eating or drinking Time Seen by Provider: 06/10/23 14:12 Source: patient, family, RN notes reviewed Mode of arrival: ambulatory Limitations: no limitations - History of Present Illness Initial comments: This is a 77-year-old female who presents to the emergency department for generalized weakness. About 2 weeks ago she had an abscess on her right cheek drained, and she has felt generally unwell since, however she has been worse over the last couple of days. She has been taking Bactrim as prescribed, but continues to feel unwell. Daughter states that she has no appetite and is not eating or drinking. Patient denies any abdominal pain, nausea, chest pain, or shortness of breath. She has not measured any fevers, but does feel cold all of the time. Family is concerned that she is dehydrated and needs IV fluids. She saw her primary care provider a couple of days ago, who advised that if she continued to not want to eat or drink, she should come to the emergency department for evaluation. MD Complaint: generalized weakness - Related Data Home Medications Medication Instructions Recorded Confirmed Donepezil [Aricept] 10 mg PO DAILY 06/10/23 06/10/23 Omeprazole 20 mg PO DAILY 06/10/23 06/10/23 Sulfamethox-Tmp 800-160Mg [Bactrim 1 tab PO Q12HR 06/10/23 06/10/23 Ds] Allergies Allergy/AdvReac Type Severity Reaction Status Date / Time No Known Allergies Allergy Verified 06/10/23 14:11 Review of Systems ROS Statement: Those systems with pertinent positive or pertinent negative responses have been documented in the HPI. ROS Other: All systems not noted in ROS Statement are negative. Past Medical History Past Medical History: Dementia, GERD/Reflux Additional Past Medical History / Comment(s): hx of varicose veins, hx of covid infection 06/17/20 History of Any Multi-Drug Resistant Organisms: None Reported Past Surgical History: Cholecystectomy Additional Past Surgical History / Comment(s): bilateral cataract surgery; right leg vein stripping Past Anesthesia/Blood Transfusion Reactions: No Reported Reaction Past Psychological History: No Psychological Hx Reported Smoking Status: Never smoker Past Alcohol Use History: None Reported Past Drug Use History: None Reported - Past Family History Mother Family Medical History: No Reported History General Exam Limitations: no limitations General appearance: alert, in no apparent distress Head exam: Present: atraumatic, normocephalic, normal inspection Respiratory exam: Present: normal lung sounds bilaterally. Absent: respiratory distress, wheezes, rales, rhonchi, stridor Cardiovascular Exam: Present: regular rate, normal rhythm, normal heart sounds. Absent: systolic murmur, diastolic murmur, rubs, gallop, clicks GI/Abdominal exam: Present: soft, normal bowel sounds. Absent: distended, tenderness, guarding, rebound, rigid Neurological exam: Present: alert, oriented X3, CN II-XII intact Psychiatric exam: Present: normal affect, normal mood Skin exam: Present: warm, dry, intact, normal color. Absent: rash Course Vital Signs 06/10/23 06/10/23 06/10/23 14:04 14:10 16:59 Temperature 97.9 F 97.0 F L Pulse Rate 55 L 54 L 49 L Pulse Rate [ Pulse Oximetery ] Respiratory 16 18 18 Rate Blood Pressure 117/75 113/56 106/52 Blood Pressure [Right Arm] O2 Sat by Pulse 97 97 100 Oximetry 06/10/23 06/10/23 06/10/23 17:47 19:40 21:31 Temperature 97.4 F L Pulse Rate 54 L 56 L Pulse Rate [ 56 L Pulse Oximetery ] Respiratory 14 19 15 Rate Blood Pressure 117/55 124/57 Blood Pressure 115/52 [Right Arm] O2 Sat by Pulse 98 100 99 Oximetry Medical Decision Making - Medical Decision Making This is a 77 year old female who presents to the emergency department for w eakness and lack of appetite. Was pt. sent in by a medical professional or institution? @ -No Did you speak to anyone other than the patient for history? @ -Her daughter provides the majority of the information. Did you review nursing and triage notes? @ -Yes, and I agree, it is accurate with regards to the patient's symptoms. Were old charts reviewed? @ -No Differential Diagnosis? @ -Differential Weakness: Hypoglycemia, shock, sepsis, hyponatremia, anemia, infection, [place], ETOH, adverse medicine reaction, overdose, stroke, this is not meant to be an all-inclusive list. EKG interpreted by me (3pts min.)? @ -EKG interpreted by me demonstrating the following: Sinus bradycardia. Ventricular rate 47 BPM, CO interval 166 ms, QRS duration 104 ms, QTc 444 ms. X-rays interpreted by me (1pt min.)? @ -Chest x-ray obtained, my interpretation identifies no localized consolidations or infiltrates. CT interpreted by me (1pt min.)? @ -Not obtained U/S interpreted by me (1pt. min.)? @ -Not obtained What testing was considered but not performed? (CT, X-rays, U/S, labs)? Why? @ -None What meds were considered but not given? Why? @ -None Did you discuss the management of the patient with other professionals? @ -Yes, Dr. Green, who accepts the patient for admission. Did you reconcile home meds? @ -No Was smoking cessation discussed for >3mins.? @ -No Was critical care preformed (if so, how long)? @ -No Were there social determinants of health that impacted care today? How? (Homelessness, low income, unemployed, alcoholism, drug addiction, transportation, low edu. Level, literacy, decrease access to med. care, [facility], rehab)? @ -No Was there de-escalation of care discussed even if they declined? (Discuss DNR or withdrawal of care, Hospice)? @ -No What co-morbidities impacted this encounter? (DM, HTN, Smoking, COPD, CAD, Cancer, CVA, Hep., AIDS, mental health diagnosis, sleep apnea, morbid obesity)? @ -Dementia Was patient admitted / discharged? @ -Admitted. Lab work demonstrates leukopenia with a white blood cell count of 2.8 and was otherwise fairly unremarkable. Urinalysis negative for signs of infection. COVID, influenza, and RSV testing were negative. Troponin 0.021, however this was hemolyzed. Chest x-ray demonstrates low lung volumes with a generalized hazy appearance which could represent atelectasis versus pulmonary edema. Patient bradycardic in the emergency department, with a heart rate in the range of 40 to 50 bpm. She was given a liter bolus of IV fluids, which she found somewhat helpful, but was not comfortable going home due to the weakness. Patient subsequently admitted to medicine for weakness, bradycardia, and failure to thrive. Serial troponins ordered due to prior hemolysis and generalized weakness. Maintenance IV fluids ordered. Consult placed for physical and occupational Therapy. BNP ordered based on chest x-ray findings, and was pending at the time of admission. Undiagnosed new problem with uncertain prognosis? @ -None Drug Therapy requiring intensive monitoring for toxicity (Heparin, Nitro, Insul in, Cardizem)? @ -None Were any procedures done? @ -None Diagnosis/symptom? @ -Weakness, failure to thrive, bradycardia Acute, or Chronic, or Acute on Chronic? @ -Acute Uncomplicated (without systemic symptoms) or Complicated (systemic symptoms)? @ -Complicated Side effects of treatment? @ -None Exacerbation, Progression, or Severe Exacerbation] @ -Not applicable Poses a threat to life or bodily function? @ -Yes This case was discussed in detail with the attending ED physician, Dr. Mo. Presentation, findings, and treatment plan discussed in detail as well. - Lab Data Result diagrams: 06/10/23 16:45 06/10/23 14:35 Lab Results 06/10/23 06/10/23 06/10/23 Range/Units 14:35 14:35 14:35 WBC (3.8-10.6) k/uL RBC (3.80-5.40) m/uL Hgb (11.4-16.0) gm/dL Hct (34.0-46.0) % MCV (80.0-100.0) fL MCH (25.0-35.0) pg MCHC (31.0-37.0) g/dL RDW (11.5-15.5) % Plt Count (150-450) k/uL MPV Neutrophils % % Lymphocytes % % Monocytes % % Eosinophils % % Basophils % % Neutrophils # (1.3-7.7) k/uL Lymphocytes # (1.0-4.8) k/uL Monocytes # (0-1.0) k/uL Eosinophils # (0-0.7) k/uL Basophils # (0-0.2) k/uL PT 10.7 (10.0-12.5) sec INR 1.0 (<1.2) APTT 23.7 (22.0-30.0) sec Sodium 136 L (137-145) mmol/L Potassium 4.4 (3.5-5.1) mmol/L Chloride 105 (98-107) mmol/L Carbon Dioxide 24 (22-30) mmol/L Anion Gap 7 mmol/L BUN 13 (7-17) mg/dL Creatinine 0.79 (0.52-1.04) mg/dL Est GFR (CKD-EPI)AfAm 84 (>60 ml/min/1.73 sqM) Est GFR (CKD-EPI)NonAf 73 (>60 ml/min/1.73 sqM) Glucose 93 (74-99) mg/dL Plasma Lactic Acid Faraz (0.7-2.0) mmol/L Calcium 8.7 (8.4-10.2) mg/dL Phosphorus 3.4 (2.5-4.5) mg/dL Magnesium 2.0 (1.6-2.3) mg/dL Total Bilirubin 1.2 (0.2-1.3) mg/dL AST 46 H (14-36) U/L ALT 22 (4-34) U/L Alkaline Phosphatase 50 (38-126) U/L Troponin I (0.000-0.034) ng/mL NT-Pro-B Natriuret Pep pg/mL Total Protein 6.5 (6.3-8.2) g/dL Albumin 3.7 (3.5-5.0) g/dL TSH 1.530 (0.465-4.680) mIU/L Urine Color Yellow Urine Appearance Turbid H (Clear) Urine pH 6.0 (5.0-8.0) Ur Specific Emerson 1.023 (1.001-1.035) Urine Protein Trace H (Negative) Urine Glucose (UA) Trace H (Negative) Urine Ketones Negative (Negative) Urine Blood Small H (Negative) Urine Nitrite Negative (Negative) Urine Bilirubin Negative (Negative) Urine Urobilinogen <2.0 (<2.0) mg/dL Ur Leukocyte Esterase Negative (Negative) Ur Squamous Epith Cells 3 (0-4) /hpf Uric Acid Crystals Many H (None) /hpf Urine Mucus Moderate H (None) /hpf Influenza Type A (PCR) (Not Detectd) Influenza Type B (PCR) (Not Detectd) RSV (PCR) (Not Detectd) SARS-CoV-2 (PCR) (Not Detectd) 06/10/23 06/10/23 06/10/23 Range/Units 14:35 14:35 14:35 WBC (3.8-10.6) k/uL RBC (3.80-5.40) m/uL Hgb (11.4-16.0) gm/dL Hct (34.0-46.0) % MCV (80.0-100.0) fL MCH (25.0-35.0) pg MCHC (31.0-37.0) g/dL RDW (11.5-15.5) % Plt Count (150-450) k/uL MPV Neutrophils % % Lymphocytes % % Monocytes % % Eosinophils % % Basophils % % Neutrophils # (1.3-7.7) k/uL Lymphocytes # (1.0-4.8) k/uL Monocytes # (0-1.0) k/uL Eosinophils # (0-0.7) k/uL Basophils # (0-0.2) k/uL PT (10.0-12.5) sec INR (<1.2) APTT (22.0-30.0) sec Sodium (137-145) mmol/L Potassium (3.5-5.1) mmol/L Chloride (98-107) mmol/L Carbon Dioxide (22-30) mmol/L Anion Gap mmol/L BUN (7-17) mg/dL Creatinine (0.52-1.04) mg/dL Est GFR (CKD-EPI)AfAm (>60 ml/min/1.73 sqM) Est GFR (CKD-EPI)NonAf (>60 ml/min/1.73 sqM) Glucose (74-99) mg/dL Plasma Lactic Acid Faraz 0.8 (0.7-2.0) mmol/L Calcium (8.4-10.2) mg/dL Phosphorus (2.5-4.5) mg/dL Magnesium (1.6-2.3) mg/dL Total Bilirubin (0.2-1.3) mg/dL AST (14-36) U/L ALT (4-34) U/L Alkaline Phosphatase (38-126) U/L Troponin I (0.000-0.034) ng/mL NT-Pro-B Natriuret Pep 142 pg/mL Total Protein (6.3-8.2) g/dL Albumin (3.5-5.0) g/dL TSH (0.465-4.680) mIU/L Urine Color Urine Appearance (Clear) Urine pH (5.0-8.0) Ur Specific Emerson (1.001-1.035) Urine Protein (Negative) Urine Glucose (UA) (Negative) Urine Ketones (Negative) Urine Blood (Negative) Urine Nitrite (Negative) Urine Bilirubin (Negative) Urine Urobilinogen (<2.0) mg/dL Ur Leukocyte Esterase (Negative) Ur Squamous Epith Cells (0-4) /hpf Uric Acid Crystals (None) /hpf Urine Mucus (None) /hpf Influenza Type A (PCR) Not Detected (Not Detectd) Influenza Type B (PCR) Not Detected (Not Detectd) RSV (PCR) Not Detected (Not Detectd) SARS-CoV-2 (PCR) Not Detected (Not Detectd) 06/10/23 06/10/23 Range/Units 16:45 17:42 WBC 2.8 L (3.8-10.6) k/uL RBC 3.82 (3.80-5.40) m/uL Hgb 12.0 (11.4-16.0) gm/dL Hct 36.1 (34.0-46.0) % MCV 94.7 (80.0-100.0) fL MCH 31.4 (25.0-35.0) pg MCHC 33.2 (31.0-37.0) g/dL RDW 12.6 (11.5-15.5) % Plt Count 154 (150-450) k/uL MPV 7.3 Neutrophils % 44 % Lymphocytes % 45 % Monocytes % 4 % Eosinophils % 3 % Basophils % 1 % Neutrophils # 1.2 L (1.3-7.7) k/uL Lymphocytes # 1.3 (1.0-4.8) k/uL Monocytes # 0.1 (0-1.0) k/uL Eosinophils # 0.1 (0-0.7) k/uL Basophils # 0.0 (0-0.2) k/uL PT (10.0-12.5) sec INR (<1.2) APTT (22.0-30.0) sec Sodium (137-145) mmol/L Potassium (3.5-5.1) mmol/L Chloride (98-107) mmol/L Carbon Dioxide (22-30) mmol/L Anion Gap mmol/L BUN (7-17) mg/dL Creatinine (0.52-1.04) mg/dL Est GFR (CKD-EPI)AfAm (>60 ml/min/1.73 sqM) Est GFR (CKD-EPI)NonAf (>60 ml/min/1.73 sqM) Glucose (74-99) mg/dL Plasma Lactic Acid Faraz (0.7-2.0) mmol/L Calcium (8.4-10.2) mg/dL Phosphorus (2.5-4.5) mg/dL Magnesium (1.6-2.3) mg/dL Total Bilirubin (0.2-1.3) mg/dL AST (14-36) U/L ALT (4-34) U/L Alkaline Phosphatase (38-126) U/L Troponin I 0.021 (0.000-0.034) ng/mL NT-Pro-B Natriuret Pep pg/mL Total Protein (6.3-8.2) g/dL Albumin (3.5-5.0) g/dL TSH (0.465-4.680) mIU/L Urine Color Urine Appearance (Clear) Urine pH (5.0-8.0) Ur Specific Emerson (1.001-1.035) Urine Protein (Negative) Urine Glucose (UA) (Negative) Urine Ketones (Negative) Urine Blood (Negative) Urine Nitrite (Negative) Urine Bilirubin (Negative) Urine Urobilinogen (<2.0) mg/dL Ur Leukocyte Esterase (Negative) Ur Squamous Epith Cells (0-4) /hpf Uric Acid Crystals (None) /hpf Urine Mucus (None) /hpf Influenza Type A (PCR) (Not Detectd) Influenza Type B (PCR) (Not Detectd) RSV (PCR) (Not Detectd) SARS-CoV-2 (PCR) (Not Detectd) - Radiology Data Radiology results: report reviewed, image reviewed Disposition Clinical Impression: Weakness, Failure to thrive, Bradycardia Disposition: ADMITTED IP TO THIS [facility] Time of Disposition: 18:25
[2023-06-10 15:18] LABS: ALT 22 U/L (4-34); African American GFR (CKD) 84 (>60 ml/min/1.73 sqM); Albumin 3.7 g/dL (3.5-5.0); Anion Gap 7 mmol/L; Blood Urea Nitrogen 13 mg/dL (7-17); Calcium 8.7 mg/dL (8.4-10.2); Carbon Dioxide 24 mmol/L (22-30); Chloride 105 mmol/L (98-107); Glucose 93 mg/dL (74-99); Non-African American GFR(CKD) 73 (>60 ml/min/1.73 sqM); Phosphorus 3.4 mg/dL (2.5-4.5); Sodium 136 mmol/L (137-145); Total Bilirubin 1.2 mg/dL (0.2-1.3); Total Protein 6.5 g/dL (6.3-8.2)
[2023-06-10 15:26] LABS: Partial Thromboplastin Time 23.7 sec (22.0-30.0); Prothrombin Time 10.7 sec (10.0-12.5)
[2023-06-10] MEDS: SODIUM CHLORIDE 0.9% 1,000 ML IV STA (15:26)
[2023-06-10 15:40] LABS: Appearance,Urine Turbid (Clear); Bilirubin,Urine Negative (Negative); Blood,Urine Small (Negative); Color,Urine Yellow; Glucose,Urine (UA) Trace (Negative); Ketones,Urine Negative (Negative); Leukocyte Esterase,Urine Negative (Negative); Mucus,Urine Moderate /hpf; Nitrite,Urine Negative (Negative); Protein,Urine Trace (Negative); Specific Gravity,Urine 1.023 (1.001-1.035); Squamous Epithelial Cell,Urine 3 /hpf (0-4); Uric Acid Crystals,Urine Many /hpf; Urobilinogen,Urine <2.0 mg/dL (<2.0)
[2023-06-10 15:42] LABS: AST 46 U/L (14-36); Alkaline Phosphatase 50 U/L (38-126); Potassium 4.4 mmol/L (3.5-5.1)
[2023-06-10 16:49] LABS: Basophils % (A) 1 %; Eosinophils # (A) 0.1 k/uL (0-0.7); Eosinophils % (A) 3 %; HCT 36.1 % (34.0-46.0); Lymphocytes # (A) 1.3 k/uL (1.0-4.8); Lymphocytes % (A) 45 %; MCH 31.4 pg (25.0-35.0); MCHC 33.2 g/dL (31.0-37.0); MCV 94.7 fL (80.0-100.0); Mean Platelet Volume 7.3; Monocytes # (A) 0.1 k/uL (0-1.0); Monocytes % (A) 4 %; Neutrophils # (A) 1.2 k/uL (1.3-7.7); Neutrophils % (A) 44 %; Platelet Count 154 k/uL (150-450); RBC 3.82 m/uL (3.80-5.40); RDW 12.6 % (11.5-15.5); WBC 2.8 k/uL (3.8-10.6)
[2023-06-10] MEDS ORDERED: NALOXONE 0.4 MG/ML 1 ML VIAL IV PRN ×2 (18:26→21:11)
[2023-06-10] MEDS ORDERED: ONDANSETRON 4 MG/2 ML VIAL IVP PRN (18:26)
--- NOTE | 2023-06-10 18:35 | XR ---
EXAMINATION TYPE: XR chest 2V DATE OF EXAM: 06/10/2023 5:34 PM CLINICAL INDICATION:Female, 77 years old with history of Weakness; [facility] COMPARISON: Chest radiographs from 02/27/2022 TECHNIQUE: XR chest 2V Frontal and lateral views of the chest. FINDINGS: Lungs/Pleura: Low lung volumes are present. There is no evidence of pleural effusion, focal consolida tion, or pneumothorax. Pulmonary vascularity: Unremarkable. Heart/mediastinum: Cardiomediastinal silhouette is unremarkable. Musculoskeletal: No acute osseous pathology. IMPRESSION: Low lung volumes with a generalized hazy appearance which could represent atelectasis versus pulmonar y edema correlate with serum BNP.
[2023-06-10] MEDS: SODIUM CHLORIDE 0.9% 1,000 ML IV SCH (19:01)
[2023-06-10] MEDS ORDERED: MAG HYDROX/AL HYDROX/SIMETH 30 ML CUP PO PRN (21:11)
[2023-06-10] MEDS ORDERED: CALCIUM CARBONATE 500 MG CHEWABLE PO PRN (21:11)
[2023-06-11] MEDS: PANTOPRAZOLE 40 MG TABLET PO SCH (08:01)
[2023-06-11] MEDS: DONEPEZIL 10 MG TAB PO SCH (08:01)
[2023-06-11 10:05] LABS: Basophils # (A) 0.09 X 10*3/uL (0.00-0.10); Basophils % (A) 2.7 %; Eosinophils # (A) 0.13 X 10*3/uL (0.04-0.35); Eosinophils % (A) 3.8 %; HCT 38.8 % (37.2-46.3); HGB 12.7 g/dL (12.0-15.0); Lymphocytes # (A) 1.57 X 10*3/uL (0.90-5.00); Lymphocytes % (A) 46.3 %; MCH 30.8 pg (27.0-32.0); MCHC 32.7 g/dL (32.0-37.0); MCV 93.9 FL (80.0-97.0); Mean Platelet Volume 10.1 FL (9.5-12.2); Monocytes # (A) 0.27 X 10*3/uL (0.20-1.00); NRBC Per 100 WBC 0 X 10*3/uL (0.00-0.01); Neutrophils # (A) 1.32 X 10*3/uL (1.80-7.70); Neutrophils % (A) 38.9 %; Platelet Count 175 X 10*3/uL (140-440); RBC 4.13 X 10*6/uL (4.10-5.20); RDW 12.3 % (11.5-14.5); WBC 3.39 X 10*3/uL (4.50-10.00)
[2023-06-11 10:10] LABS: ALT 18 U/L (8-44); AST 25 U/L (13-35); Albumin 3.3 g/dL (3.8-4.9); Albumin/Globulin Ratio 1.83 Ratio (1.60-3.17); Alkaline Phosphatase 53 U/L (41-126); Blood Urea Nitrogen 11.2 mg/dL (9.0-27.0); Calcium 8.4 mg/dL (8.7-10.3); Carbon Dioxide 22.4 mmol/L (21.6-31.8); Chloride 109 mmol/L (96-109); Globulin 1.8 g/dL (1.6-3.3); Glucose 82 mg/dL (70-110); Potassium 3.9 mmol/L (3.5-5.5); Sodium 140 mmol/L (135-145); Total Bilirubin 0.6 mg/dL (0.3-1.2); Total Protein 5.1 g/dL (6.2-8.2)
--- NOTE | 2023-06-11 13:25 | CT ---
EXAMINATION TYPE: CT brain wo con DATE OF EXAM: 06/11/2023 COMPARISON: None HISTORY: R/O STROKE CT DLP: 1029.90 mGycm Automated exposure control for dose reduction was used. FINDINGS: The ventricles, basal cisterns and sulci of the convexities are moderately enlarged consistent with m oderate generalized atrophy which is appropriate for the patient's age.. There is mild decreased density in the deep periventricular white matter consistent with mild chronic ischemic white matter demyelination. There is no mass effect or shift in midline structures. There is no acute intra or extra-axial hemorrhage. The posterior fossa including the brainstem, fourth ventricle and cerebellopontine angles appear romulo sly normal. The intraorbital contents appear normal and symmetric. The visualized paranasal sinuses and mastoid air cells are well aerated. The calvarium is intact IMPRESSION: 1. No acute bleed or mass effect. 2. Moderate age-appropriate atrophy. IMPRESSION:
--- NOTE | 2023-06-11 15:55 | HP ---
HISTORY AND PHYSICAL CHIEF COMPLAINT: Weakness and not eating or drinking. HISTORY OF PRESENT ILLNESS: 77-year-old woman with a past medical history of multiple medical problems including dementia, GERD, was admitted with severe weakness. The patient apparently had an abscess on the right cheek drained and the patient was unwell after that. With diminished appetite, the patient is not eating or drinking and the patient was found to be dehydrated. The patient has some neutropenia and admitted for further evaluation and treatment. There is no history of any fever, rigors, chills at this time. The basic evaluations are showing some leukopenia. Otherwise, there are no headache or loss of consciousness. PAST MEDICAL HISTORY: History of dementia, history of GERD. MEDICATIONS: Omeprazole, dose and rest of medications noted. Bactrim. ALLERGIES: None. FAMILY HISTORY: No history of heart disease or strokes in the family. SOCIAL HISTORY: No history of smoking or alcohol. REVIEW OF SYSTEMS: Fourteen-point review is negative except as mentioned earlier. PHYSICAL EXAMINATION: VITAL SIGNS: Pulse is 68, blood pressure 98/56, and respirations 15. HEENT: Conjunctivae normal. NECK: No JVD. CARDIOVASCULAR: S1 and S2. RESPIRATIONS: Breath sounds diminished at the bases. Few scattered rhonchi and crackles. ABDOMEN: Soft, nontender. LEGS: No edema. NERVOUS SYSTEM: Nonfocal. SKIN: No ulcer, rash, bleeding. JOINTS: No active deforming arthropathy. LABS: WBC 3.7, rest of the labs are noted. ASSESSMENT: 1. Diffuse weakness for evaluation, rule out sepsis. 2. Neutropenia. 3. History of right cheek abscess, status post drainage. 4. Dementia. 5. Gastroesophageal reflux disease. 6. History of COVID infection in 2020. 7. History of cholecystectomy. RECOMMENDATIONS AND DISCUSSION: This is a 77-year-old woman presented with multiple complex medical issues. The patient complaining of generalized weakness. The patient had an MRI of the brain in March, which only showed nonspecific white matter changes. I would repeat a CAT scan of the brain and cultures and Infectious Disease evaluation. Prognosis guarded because of multiple complex medical issues. Further recommendations to follow. The leukopenia will be closely observed. Prognosis guarded. Further recommendations to follow. See orders for details. MMODL / IJN: [id number] /
--- NOTE | 2023-06-11 17:21 | P.CONS ---
History of Present Illness - Reason for Consult Consult date: 06/11/23 Sepsis Requesting physician: Rafaela Gonzalez - Chief Complaint Weakness x few days - History of Present Illness Patient is a 77-year-old female with a past medical history significant for reflux dementia COVID-19 apparently patient has been dealing with lesion on the right side of the face that apparently has been drained in the ER and by her primary care physician and has been treated with a course of antibiotic recently evaluated by the PCP and has received an intramuscular antibiotics and apparently the patient also received Bactrim DS patient now presenting to the hospital complaining of generalized weakness and not feeling well patient denies having any fever or any chills patient denies having any headache she did have mild discomfort to the right side of the face however overall swelling redness has improved and no further drainage patient denies any URI symptoms no chest pain or shortness of breath occasional cough no abdominal pain or any diarrhea patient on presentation to the hospital was afebrile and no fever have recorded subsequently patient was not tachycardic hypotensive or hypoxic white count of 3.39 creatinine 0.7 liver enzymes are normal CRP is less than 0.30 urine has been negative influenza RSV COVID testing negative chest x- ray with low lung volumes could represent atelectasis versus pulmonary edema infectious disease was consulted for possible sepsis and need for antibiotic therapy Review of Systems Positive point and negatives has been mentioned in the HPI, complete review of systems was performed and all other systems are negative Past Medical History Past Medical History: Dementia, GERD/Reflux Additional Past Medical History / Comment(s): hx of varicose veins, hx of covid infection 06/17/20 History of Any Multi-Drug Resistant Organisms: None Reported Past Surgical History: Cholecystectomy Additional Past Surgical History / Comment(s): bilateral cataract surgery; right leg vein stripping Past Anesthesia/Blood Transfusion Reactions: No Reported Reaction Past Psychological History: No Psychological Hx Reported Smoking Status: Never smoker Past Alcohol Use History: None Reported Past Drug Use History: None Reported - Past Family History Mother Family Medical History: No Reported History Medications and Allergies Home Medications Medication Instructions Recorded Confirmed Type Donepezil [Aricept] 10 mg PO DAILY 06/10/23 06/10/23 History Omeprazole 20 mg PO DAILY 06/10/23 06/10/23 History Acetaminophen Tab [Tylenol] 650 mg PO Q6HR PRN tab 06/14/23 Rx Calcium Carbonate [Tums] 1,000 mg PO Q4HR PRN tab 06/14/23 Rx Cyanocobalamin [Vitamin B-12] 500 mcg PO DAILY #30 tab 06/14/23 Rx Mag Hydrox/Al Hydrox/Simeth 15 ml PO Q6HR PRN ml 06/14/23 Rx [Maalox] Pyridoxine [Vitamin B-6] 50 mg PO DAILY #30 tab 06/14/23 Rx Allergies Allergy/AdvReac Type Severity Reaction Status Date / Time No Known Allergies Allergy Verified 06/10/23 14:11 Physical Exam Vitals: Vital Signs Temp Pulse Pulse Resp BP BP Pulse Ox 06/11/23 08:00 48 L 06/11/23 07:25 97.8 F 47 L 15 96/58 97 06/11/23 02:11 97.6 F 68 15 98/56 97 06/11/23 01:42 56 L 15 06/10/23 21:31 97.4 F L 56 L 15 115/52 99 06/10/23 19:40 56 L 19 124/57 100 06/10/23 17:47 54 L 14 117/55 98 06/10/23 16:59 49 L 18 106/52 100 06/10/23 14:10 97.0 F L 54 L 18 113/56 97 06/10/23 14:04 97.9 F 55 L 16 117/75 97 Intake and Output 06/10/23 06/11/23 06/11/23 22:59 06:59 14:59 Other: Voiding Method Toilet Toilet # Voids 1 2 Weight 66.678 kg GENERAL DESCRIPTION: Elderly female lying in bed, no distress. No tachypnea or accessory muscle of respiration use. HEENT: Shows Pallor , no scleral icterus. Oral mucous membrane is dry. No pharyngeal erythema or thrush NECK: Trachea central, no thyromegaly. LUNGS: Unlabored breathing. Clear to auscultation anteriorly. No wheeze or crackle. HEART: S1, S2, regular rate and rhythm. No loud murmur ABDOMEN: Soft, no tenderness , guarding or rigidity, no organomegaly EXTREMITIES: No edema of feet. SKIN: Right side of the face did have a scab no swelling redness or tenderness NEUROLOGICAL: The patient is awake, alert, oriented x3, mood and affect normal. Results CBC & Chem 7: 06/14/23 06:39 06/14/23 06:39 Labs: Abnormal Lab Results - Last 24 Hours (Table) 06/10/23 06/10/23 06/10/23 Range/Units 14:35 14:35 16:45 WBC 2.8 L (3.8-10.6) k/uL Neutrophils # 1.2 L (1.3-7.7) k/uL Sodium 136 L (137-145) mmol/L Calcium (8.7-10.3) mg/dL AST 46 H (14-36) U/L Total Protein (6.2-8.2) g/dL Albumin (3.8-4.9) g/dL Urine Appearance Turbid H (Clear) Urine Protein Trace H (Negative) Urine Glucose (UA) Trace H (Negative) Urine Blood Small H (Negative) Uric Acid Crystals Many H (None) /hpf Urine Mucus Moderate H (None) /hpf 06/11/23 06/11/23 Range/Units 06:02 06:02 WBC 3.39 L (3.8-10.6) k/uL Neutrophils # 1.32 L (1.3-7.7) k/uL Sodium (137-145) mmol/L Calcium 8.4 L (8.7-10.3) mg/dL AST (14-36) U/L Total Protein 5.1 L (6.2-8.2) g/dL Albumin 3.3 L (3.8-4.9) g/dL Urine Appearance (Clear) Urine Protein (Negative) Urine Glucose (UA) (Negative) Urine Blood (Negative) Uric Acid Crystals (None) /hpf Urine Mucus (None) /hpf Assessment and Plan (1) Abscess Status: Acute Code(s): L02.91 - CUTANEOUS ABSCESS, UNSPECIFIED SNOMED Code(s): 208881991 (2) Weakness Status: Acute Code(s): R53.1 - WEAKNESS SNOMED Code(s): 86083649 Plan: 1patient presenting to the hospital generalized weakness which is likely multifactorial likely dehydration patient did have a possible abscess cellulitis to the right cheek which has been adequately treated as currently do not have any signs of cellulitis to the right cheek area patient did have a negative UA white count is normal CRP is normal that will make infection and sepsis to be less likely. 2no need for systemic antibiotic therapy Family bedside question concern answered We will follow on clinical condition and cultures to further adjust medication if needed Thank you for this consultation we will follow the patient along with you Dictation was produced using [employer] dictation software. please excuse any grammatical, word or spelling errors. Time with Patient: Greater than 30
[2023-06-11] MEDS: HYDROcodone/APAP 5-325MG 1 EACH TAB PO PRN (21:08)
[2023-06-12 08:32] LABS: Basophils # (A) 0.09 X 10*3/uL (0.00-0.10); Basophils % (A) 2.4 %; Eosinophils # (A) 0.11 X 10*3/uL (0.04-0.35); Eosinophils % (A) 2.9 %; HCT 39.5 % (37.2-46.3); HGB 12.8 g/dL (12.0-15.0); Lymphocytes # (A) 2.03 X 10*3/uL (0.90-5.00); Lymphocytes % (A) 53.8 %; MCH 30.5 pg (27.0-32.0); MCHC 32.4 g/dL (32.0-37.0); MCV 94.3 FL (80.0-97.0); Mean Platelet Volume 9.8 FL (9.5-12.2); Monocytes # (A) 0.26 X 10*3/uL (0.20-1.00); Monocytes % (A) 6.9 %; NRBC Per 100 WBC 0 X 10*3/uL (0.00-0.01); Neutrophils # (A) 1.27 X 10*3/uL (1.80-7.70); Neutrophils % (A) 33.7 %; Platelet Count 178 X 10*3/uL (140-440); RBC 4.19 X 10*6/uL (4.10-5.20); RDW 12.5 % (11.5-14.5); WBC 3.77 X 10*3/uL (4.50-10.00)
[2023-06-12 08:38] LABS: Blood Urea Nitrogen 11.2 mg/dL (9.0-27.0); Calcium 8.5 mg/dL (8.7-10.3); Carbon Dioxide 25.2 mmol/L (21.6-31.8); Chloride 108 mmol/L (96-109); Glucose 90 mg/dL (70-110); Potassium 3.7 mmol/L (3.5-5.5); Sodium 141 mmol/L (135-145)
--- NOTE | 2023-06-12 13:13 | PN ---
PROGRESS NOTE DATE OF SERVICE: 06/12/2023 SUBJECTIVE: This is a 77-year-old woman, who was admitted with diffuse weakness and some neutropenia, is being closely monitored at this time. The patient has chronic cheek abscess drained. I will initiate empiric antibiotics. Cultures obtained. OBJECTIVE: VITAL SIGNS: Pulse is 51, blood pressure 97/54, respirations 15. CHEST: Clear to auscultation. CARDIOVASCULAR: S1, S2 muffled. ABDOMEN: Soft. HEENT: Right cheek abscess present. LABORATORY DATA: Noted. ASSESSMENT: 1. Diffuse weakness for evaluation, rule out sepsis. 2. Neutropenia. 3. Right cheek abscess, status post drainage. 4. Dementia. 5. Gastroesophageal reflux disease. 6. History of COVID-19 infection in 2020. 7. History of cholecystectomy. RECOMMENDATIONS AND DISCUSSION: Recommend to continue current management. Continue symptomatic treatment. Continue with Infectious Disease. I would also recommend surgical evaluation. Otherwise, I would also recommend empiric antibiotics. Guarded prognosis. Further recommendations to follow. MMODL / IJN: [id number] /
[2023-06-12] MEDS: AMPICILLIN-SULBACTAM 3 GM in SODIUM CHLORIDE 0.9% 100 ML IVPB SCH (13:44)
--- NOTE | 2023-06-12 14:21 | P.CNNES ---
History of Present Illness Consult date: 06/12/23 Requesting physician: Rafaela Gonzalez Reason for Consult: weakness History of Present Illness: This is a 77-year-old woman who presents because of generalized weakness. History was obtained from the patient's daughter was at bedside. Per the daughter, patient has been having generalized weakness for the past 1 week feeling cold. No focal weakness, headaches, speech difficulty, difficulty swallowing or numbness that's Patient denies any history of stroke. Patient has history of early onset Alzheimer's dementia and she follows up with Dr. Cordoba (neurologist) but is not compliant taking medication in total. Per the daughter, patient had MRI the brain in April 2023 as well as had an EEG and did not reveal any acute or subacute stroke to her knowledge in the EEG was negative for any seizures. She was started on Aricept 10 mg but the patient is not compliant taking medication on a daily basis. Patient feels she is doing well and there is nothing wrong with her. Also according to the daughter the patient supposed to be on vitamin B12 supplement but she is not taking it. Some of the workup during his hospital visit consisted of: Calcium is 8.7, phosphorus 3.4, magnesium 2.0, initial low serum glucose is 93, sodium is [address] of the head is reported as no acute bleed or mass effect. Moderate age appropriate atrophy. I personally reviewed the CT head and I agree there is no acute subacute ischemia. Of note, patient had vitamin B12 377 on 04/04/2023 and the folate of 12.10. Review of Systems Review of system: The 12 point system was reviewed and apparent positive and negative per HPI. Past Medical History Past Medical History: Dementia, GERD/Reflux Additional Past Medical History / Comment(s): hx of varicose veins, hx of covid infection 06/17/20 History of Any Multi-Drug Resistant Organisms: None Reported Past Surgical History: Cholecystectomy Additional Past Surgical History / Comment(s): bilateral cataract surgery; right leg vein stripping Past Anesthesia/Blood Transfusion Reactions: No Reported Reaction Past Psychological History: No Psychological Hx Reported Smoking Status: Never smoker Past Alcohol Use History: None Reported Past Drug Use History: None Reported - Past Family History Mother Family Medical History: No Reported History Medications and Allergies Home Medications Medication Instructions Recorded Confirmed Type Donepezil [Aricept] 10 mg PO DAILY 06/10/23 06/10/23 History Omeprazole 20 mg PO DAILY 06/10/23 06/10/23 History Sulfamethox-Tmp 800-160Mg [Bactrim 1 tab PO Q12HR 06/10/23 06/10/23 History Ds] Allergies Allergy/AdvReac Type Severity Reaction Status Date / Time No Known Allergies Allergy Verified 06/10/23 14:11 Physical Examination - Vital Signs Vital Signs: Vital Signs Temp Pulse Resp BP BP Pulse Ox 06/12/23 08:00 51 L 14 06/12/23 07:00 97.8 F 51 L 14 97/54 95 06/12/23 02:00 97.7 F 52 L 15 96/60 94 L 06/12/23 01:35 57 L 17 06/11/23 21:08 57 L 17 06/11/23 20:00 97.7 F 57 L 17 108/54 95 06/11/23 15:05 97.8 F 58 L 15 110/61 97 Intake and Output 06/11/23 06/12/23 06/12/23 22:59 06:59 14:59 Intake Total 240 Balance 240 Intake: Oral 240 Other: Voiding Method Toilet Toilet Toilet # Voids 2 1 GENERAL: The patient is lying in bed and is not in acute distress. NEUROLOGICAL: Higher mental function: The patient is awake, alert, oriented to self, place and time. Patient correctly stated the correct city as well as the [place] the [facility]. Patient is following commands. No aphasia and no neglect. Cranial nerves: The pupils are round, equal and reactive to light and accommodation. Visual rojas are full to confrontation throughout. Extraocular movement is intact no nystagmus is noted. Facial sensation is normal to touch throughout. The facial strength is normal throughout. Hearing is mildly decreased bilaterally to hand rub. Tongue is midline and moved [id number] without any difficulty. No dysarthria is noted. Shoulder shrug is normal bilaterally. Motor: Gait is normal. The strength is 5 over 5 throughout. Normal tone and bulk. Cerebellum: Normal finger to nose heel to chin bilaterally. Sensation: Sensation is normal to touch throughout. Reflexes (right/left): 2+ throughout. Plantars are downgoing bilaterally. Results - Laboratory Findings CBC and BMP: 06/12/23 05:49 06/12/23 05:49 Abnormal Lab Findings: Abnormal Labs 06/10/23 06/10/23 06/10/23 14:35 14:35 16:45 WBC 2.8 L Neutrophils # 1.2 L Sodium 136 L Calcium AST 46 H Total Protein Albumin Procalcitonin Urine Appearance Turbid H Urine Protein Trace H Urine Glucose (UA) Trace H Urine Blood Small H Uric Acid Crystals Many H Urine Mucus Moderate H 06/11/23 06/11/23 06/11/23 06:02 06:02 13:26 WBC 3.39 L Neutrophils # 1.32 L Sodium Calcium 8.4 L AST Total Protein 5.1 L Albumin 3.3 L Procalcitonin 0.11 H Urine Appearance Urine Protein Urine Glucose (UA) Urine Blood Uric Acid Crystals Urine Mucus 06/12/23 06/12/23 05:49 05:49 WBC 3.77 L Neutrophils # 1.27 L Sodium Calcium 8.5 L AST Total Protein Albumin Procalcitonin Urine Appearance Urine Protein Urine Glucose (UA) Urine Blood Uric Acid Crystals Urine Mucus Assessment and Plan Assessment: This is a 77-year-old woman who presents because of generalized weakness. She has early onset Alzheimer's dementia is not compliant taking her medication. Generalized weakness. There is no focality on examination. Patient is alert oriented 3. Low normal vitamin B12 of 377 in 04/04/2023 and patient is not compliant taking that her vitamin B12 supplement Borderline normal vitamin B6 of 5 also engenders 2023 Early onset Alzheimer's dementia (follows-up with Dr. Cordoba) Medication noncompliance Plan: I'll not pursue MRI of the brain since the patient had a recent MRI month ago as well as EEG by her neurologist Dr. Cordoba as an outpatient according to the daughter and there is no seizures on the EEG and no stroke on MRI. The patient daughter is in agreement. I started the patient on vitamin B12 500 mg daily in which she is noncompliant taking her medication I also started the patient on vitamin B6 50 mg daily. Recommend reevaluation of levels as an outpatient within 4 weeks and if elevated levels then recommend modification of medication. I'll defer the rest of the medical management to primary and other specialists Recommend the patient to follow-up with her neurologist, Dr. Cordoba as an outpatient within 4-6 weeks. The plan discussed with the patient's daughter is at bedside as well as her nurse. Otherwise there is no additional neurological workup. We'll sign off. Please reconsult if needed Thank you for the consultation Time with Patient: Greater than 30
[2023-06-12] MEDS: PYRIDOXINE 50 MG TAB PO SCH (15:19)
[2023-06-12] MEDS: CYANOCOBALAMIN 500 MCG TAB PO SCH (15:19)
[2023-06-12] MEDS: MELATONIN 3 MG TABLET PO PRN (21:58)
[2023-06-13 11:45] LABS: Blood Urea Nitrogen 10.5 mg/dL (9.0-27.0); Carbon Dioxide 25.5 mmol/L (21.6-31.8); Chloride 110 mmol/L (96-109); Glucose 89 mg/dL (70-110); Potassium 3.9 mmol/L (3.5-5.5); Sodium 144 mmol/L (135-145)
[2023-06-13 11:46] LABS: ALT 17 U/L (8-44); AST 20 U/L (13-35); Albumin 3.4 g/dL (3.8-4.9); Albumin/Globulin Ratio 1.79 Ratio (1.60-3.17); Alkaline Phosphatase 51 U/L (41-126); Calcium 8.8 mg/dL (8.7-10.3); Globulin 1.9 g/dL (1.6-3.3); Total Bilirubin 0.7 mg/dL (0.3-1.2); Total Protein 5.3 g/dL (6.2-8.2)
[2023-06-13 12:16] LABS: Basophils # (A) 0.08 X 10*3/uL (0.00-0.10); Basophils % (A) 1.7 %; Eosinophils % (A) 2.2 %; HCT 39.6 % (37.2-46.3); Lymphocytes # (A) 1.98 X 10*3/uL (0.90-5.00); Lymphocytes % (A) 43.1 %; MCH 30.6 pg (27.0-32.0); MCHC 32.8 g/dL (32.0-37.0); MCV 93.2 FL (80.0-97.0); Mean Platelet Volume 9.8 FL (9.5-12.2); Monocytes % (A) 4.4 %; NRBC Per 100 WBC 0 X 10*3/uL (0.00-0.01); Neutrophils # (A) 2.22 X 10*3/uL (1.80-7.70); Neutrophils % (A) 48.4 %; Platelet Count 199 X 10*3/uL (140-440); RBC 4.25 X 10*6/uL (4.10-5.20); RDW 12.6 % (11.5-14.5); WBC 4.59 X 10*3/uL (4.50-10.00)
--- NOTE | 2023-06-13 15:03 | PN ---
PROGRESS NOTE DATE OF SERVICE: 06/13/2023 SUBJECTIVE: This is a 77-year-old woman, who was admitted with diffuse weakness. She is also being evaluated for the possibility of sepsis. Cultures are negative so far. Procalcitonin is elevated. OBJECTIVE: VITAL SIGNS: On exam, pulse is 57, blood pressure is 90/60, and respirations 16. CHEST: Clear to auscultation. CARDIOVASCULAR: S1 and S2. ABDOMEN: Soft. ASSESSMENT: 1. Diffuse weakness and evaluation of sepsis, ruled out. 2. Neutropenia. 3. Right cheek abscess, status post drainage. 4. Dementia. 5. Gastroesophageal reflux disease. 6. History of COVID-19 infection in 2020. 7. History of cholecystectomy. RECOMMENDATIONS: Recommend to continue current management. Continue symptomatic treatment otherwise at this time. I recommend serum cortisol and continue to monitor. Continue the antibiotics. Possible discharge home within the next 24 hours. MMODL / IJN: [id number] / MTDD
[2023-06-13] MEDS ORDERED: MELATONIN 3 MG TABLET PO PRN (20:30)
[2023-06-13] MEDS: MELATONIN 5 MG TABLET PO PRN (23:13)
[2023-06-14 00:13] LABS: HIV 2 AB Non-Reactive (Non-Reactive); HIV AB P24 Non-Reactive (Non-Reactive); HIV P24 AG Non-Reactive (Non-Reactive)
[2023-06-14 08:25] VITALS: BP 99/61; PULSE 55; RESP 16; TEMP 97.6
[2023-06-14 11:13] LABS: Basophils # (A) 0.12 X 10*3/uL (0.00-0.10); Basophils % (A) 2.5 %; Eosinophils % (A) 2.1 %; HCT 39.1 % (37.2-46.3); HGB 12.9 g/dL (12.0-15.0); Lymphocytes # (A) 1.91 X 10*3/uL (0.90-5.00); Lymphocytes % (A) 40.3 %; MCH 30.9 pg (27.0-32.0); MCV 93.8 FL (80.0-97.0); Mean Platelet Volume 9.6 FL (9.5-12.2); Monocytes # (A) 0.23 X 10*3/uL (0.20-1.00); Monocytes % (A) 4.9 %; NRBC Per 100 WBC 0 X 10*3/uL (0.00-0.01); Neutrophils # (A) 2.36 X 10*3/uL (1.80-7.70); Neutrophils % (A) 49.8 %; Platelet Count 195 X 10*3/uL (140-440); RBC 4.17 X 10*6/uL (4.10-5.20); RDW 12.6 % (11.5-14.5); WBC 4.74 X 10*3/uL (4.50-10.00)
[2023-06-14 11:43] LABS: Blood Urea Nitrogen 10.5 mg/dL (9.0-27.0); Calcium 8.4 mg/dL (8.7-10.3); Carbon Dioxide 26.2 mmol/L (21.6-31.8); Chloride 109 mmol/L (96-109); Glucose 91 mg/dL (70-110); Potassium 3.5 mmol/L (3.5-5.5); Sodium 143 mmol/L (135-145)
[2023-06-14] MEDS: ACETAMINOPHEN TAB 325 MG TAB PO PRN (12:49)
--- NOTE | 2023-06-14 15:49 | P.DS ---
Providers Date of admission: 06/11/23 12:43 Expected date of discharge: 06/14/23 Attending physician: Jonn Green MD Consults: 06/11/23 12:41 Consult Physician Routine Consulting Provider: Julissa Ackerman Consult Reason/Comments: sepsis Do you want consulting provider notified?: Yes 06/11/23 12:42 Consult Physician Routine Consulting Provider: Kirsten Marshall Consult Reason/Comments: weakness Do you want consulting provider notified?: Yes Primary care physician: Dustin Jj Hospital Course: Final diagnosis Diffuse weakness and evaluation of sepsis, ruled out Neutropenia Right cheek abscess status post previous drainage in the ER and was maintained on Bactrim History of dementia Gastroesophageal reflux disease GI prophylaxis DVT prophylaxis Full code Discharge disposition Patient is being discharged in a stable condition with guarded prognosis to home. Patient will follow-up with Dr. Jj in the outpatient setting upon discharge. Patient is to continue with close outpatient follow-up with neurology as well as infectious disease as scheduled. Patient being monitored off antibiotic therapy and will not require antibiotics on discharge. Total time taken is greater than 35 minutes. Hospital course This is a 77-year-old female who was recently admitted with diffuse weakness with an elevated procalcitonin. Patient was recently at the ER for right cheek lesion and was continued on antibiotics outpatient. Patient evaluated by infectious disease as procalcitonin was elevated and maintained on antibiotics and attempted cultures although no drainage noted and there is a scab on the right cheek. Patient will not require systemic antibiotics and is being monitored off antibiotics. Recommend monitoring outpatient with close outpatient follow-up with infectious disease. Patient also evaluated by neurology recommending to follow-up with primary neurologist Dr. Cordoba in the outpatient setting. Patient was evaluated by physical therapy and doing well and will be going home. Please refer to consultation notes for further HPI. Patient has been instructed to follow-up with primary care provider this week. Currently no reports of chest pain, shortness of breath, or palpitations. Patient is afebrile. No reports of nausea or vomiting and patient is tolerating diet. Patient will be discharged home today. Guarded prognosis Physical exam: Gen: This is a 77-year-old female who is awake, alert and oriented x 2-3, baseline, well-developed, well-nourished, elderly appearing HEENT: Head is atraumatic, normocephalic. Pupils equal, round. Sclerae is anicteric. NECK: Supple. No JVD. No lymphadenopathy. No thyromegaly. LUNGS: Diminished breath sounds bilaterally otherwise clear to auscultation. No wheezes or rhonchi. No intercostal retractions. HEART: S1, S2 are muffled ABDOMEN: Soft. Obese bowel sounds are present. No masses. No tenderness. EXTREMITIES: No pedal edema. No calf tenderness. NEUROLOGICAL: Patient is awake, alert and oriented x2-3. Cranial nerves 2 through 12 are grossly intact. Please refer to medication reconciliation sheet for a list of medications. The impression and plan of care has been dictated by Ariane Martínez, Nurse Practitioner as directed. Dr. Carlos MD I have performed a history and examination and MDM of this patient, discussed the same with the dictator, and agree with the dictator's assessment and plan as written ,documented as a scribe. Based on total visit time, I have performed more than 50% of the visit. Patient Condition at Discharge: Stable Plan - Discharge Summary Discharge Rx Participant: No New Discharge Prescriptions: New Calcium Carbonate [Tums] 1,000 mg PO Q4HR PRN tab PRN Reason: Dyspepsia Cyanocobalamin [Vitamin B-12] 500 mcg PO DAILY #30 tab Mag Hydrox/Al Hydrox/Simeth [Maalox] 15 ml PO Q6HR PRN ml PRN Reason: Indigestion Acetaminophen Tab [Tylenol] 650 mg PO Q6HR PRN tab PRN Reason: Mild Pain Or Fever > 100.5 Pyridoxine [Vitamin B-6] 50 mg PO DAILY #30 tab Continue Omeprazole 20 mg PO DAILY Donepezil [Aricept] 10 mg PO DAILY Discontinued Sulfamethox-Tmp 800-160Mg [Bactrim Ds] 1 tab PO Q12HR Discharge Medication List Donepezil [Aricept] 10 mg PO DAILY 06/10/23 [History] Omeprazole 20 mg PO DAILY 06/10/23 [History] Acetaminophen Tab [Tylenol] 650 mg PO Q6HR PRN tab 06/14/23 [Rx] Calcium Carbonate [Tums] 1,000 mg PO Q4HR PRN tab 06/14/23 [Rx] Cyanocobalamin [Vitamin B-12] 500 mcg PO DAILY #30 tab 06/14/23 [Rx] Mag Hydrox/Al Hydrox/Simeth [Maalox] 15 ml PO Q6HR PRN ml 06/14/23 [Rx] Pyridoxine [Vitamin B-6] 50 mg PO DAILY #30 tab 06/14/23 [Rx] Follow up Appointment(s)/Referral(s): Dustin Jj DO [Primary Care Provider] - 1-2 days Janusz Cordoba DO [STAFF PHYSICIAN] - 1 Week Julissa Ackerman MD [STAFF PHYSICIAN] - 06/26/23 3:30 pm Patient Instructions/Handouts: Failure to Thrive (GEN), Bradycardia (GEN), Weakness (GEN) Activity/Diet/Wound Care/Special Instructions: Activity limited until follow-up Follow-up with primary care provider on discharge Follow-up with your neurologist Follow-up with repeat labs of vitamin B12 levels in the next 4 weeks Follow-up with infectious disease outpatient Discharge Disposition: HOME SELF-CARE
== END 2023-06-14 13:15 | disposition home or self-care (01) | DRG 603 ==
LOC: EC 13:45 → 6NMEDSUR 20:07 → OBSVTOIN 06-11 12:43
PROVIDERS: ADMIT Internal Medicine; ATTEND Internal Medicine
DX: L02.01 Cutaneous abscess of face (principal); R62.7 Adult failure to thrive; Z68.28 Body mass index [BMI] 28.0-28.9, adult; E86.0 Dehydration; R00.1 Bradycardia, unspecified; Z11.52 Encounter for screening for COVID-19; G30.0 Alzheimer's disease with early onset; F02.80 Dementia in other diseases classified elsewhere, unspecified severity, without behavioral disturbance, psychotic disturbance, mood disturbance, and anxiety; D70.9 Neutropenia, unspecified; K21.9 Gastro-esophageal reflux disease without esophagitis; T45.2X6A Underdosing of vitamins, initial encounter; T44.1X6A Underdosing of other parasympathomimetics [cholinergics], initial encounter; Z91.138 Patient's unintentional underdosing of medication regimen for other reason; Z86.16 Personal history of COVID-19; Z79.899 Other long term (current) drug therapy
CPT/HCPCS: 36415; 70450; 71046; 80048; 80053; 81001; 82533; 83605; 83735; 83880; 84100; 84145; 84443; 84484; 85025; 85610; 85652; 85730; 86140; 87040; 87390; 87636; 93005; 96360; 96361; 99285

== ENCOUNTER 2023-07-17 04:40 | Emergency (ER) | payer MEDICARE, OTHER ==
[2023-07-17 04:59] VITALS: BP 149/80; PULSE 69; RESP 16; TEMP 97.8
[2023-07-17 06:20] LABS: Basophils % (A) 0 %; Eosinophils # (A) 0.2 k/uL (0-0.7); Eosinophils % (A) 1 %; HCT 42.9 % (34.0-46.0); HGB 14.5 gm/dL (11.4-16.0); Lymphocytes # (A) 1.2 k/uL (1.0-4.8); Lymphocytes % (A) 11 %; MCH 31.9 pg (25.0-35.0); MCHC 33.8 g/dL (31.0-37.0); MCV 94.4 fL (80.0-100.0); Mean Platelet Volume 7.8; Monocytes # (A) 0.5 k/uL (0-1.0); Monocytes % (A) 4 %; Neutrophils # (A) 9.1 k/uL (1.3-7.7); Neutrophils % (A) 82 %; Platelet Count 207 k/uL (150-450); RBC 4.55 m/uL (3.80-5.40); RDW 13.1 % (11.5-15.5)
[2023-07-17] MEDS: MORPHINE SULFATE 4 MG/ML SYRINGE IVP STA (06:21)
[2023-07-17 06:27] LABS: Appearance,Urine Turbid (Clear); Bilirubin,Urine Negative (Negative); Blood,Urine Moderate (Negative); Color,Urine Yellow; Glucose,Urine (UA) Negative (Negative); Ketones,Urine Trace (Negative); Leukocyte Esterase,Urine Large (Negative); Mucus,Urine Rare /hpf; Nitrite,Urine Negative (Negative); Protein,Urine 2+ (Negative); RBC,Urine >182 /hpf (0-5); Specific Gravity,Urine 1.019 (1.001-1.035); Urobilinogen,Urine <2.0 mg/dL (<2.0); WBC,Urine >182 /hpf (0-5)
[2023-07-17] MEDS: cefTRIAXone IN SWFI 1,000 MG/10 ML SYRINGE IVP STA (06:53)
[2023-07-17] MEDS: PHENAZOPYRIDINE 200 MG TAB PO STA (06:54)
--- NOTE | 2023-07-17 06:54 | ED ---
Female Urogenital HPI - General Chief complaint: Urogenital Stated complaint: unable to urinate Time Seen by Provider: 07/17/23 04:45 Source: patient, family Mode of arrival: wheelchair Limitations: no limitations - History of Present Illness Initial comments: 77-year-old female with past medical history of uterine prolapse who presents emergency department on arrival to urinate. Patient has had this issue for a long time. States that normally when it happens, she will just push her uterus back in. Today the patient was having difficulty with this and due to the difficulty she has been unable to urinate. She denies any dysuria or hematuria. She denies any significant pain. Patient feels as if it has been 10 hours since she has had any urination. No other alleviating, precipitating modifying factors - Related Data Home Medications Medication Instructions Recorded Confirmed Donepezil [Aricept] 10 mg PO DAILY 06/10/23 06/10/23 Omeprazole 20 mg PO DAILY 06/10/23 06/10/23 Previous Rx's Medication Instructions Recorded Acetaminophen Tab [Tylenol] 650 mg PO Q6HR PRN tab 06/14/23 Calcium Carbonate [Tums] 1,000 mg PO Q4HR PRN tab 06/14/23 Cyanocobalamin [Vitamin B-12] 500 mcg PO DAILY #30 tab 06/14/23 Mag Hydrox/Al Hydrox/Simeth 15 ml PO Q6HR PRN ml 06/14/23 [Maalox] Pyridoxine [Vitamin B-6] 50 mg PO DAILY #30 tab 06/14/23 Cephalexin [Keflex] 500 mg PO BID #14 tab 07/17/23 Allergies Allergy/AdvReac Type Severity Reaction Status Date / Time No Known Allergies Allergy Verified 07/04/23 03:19 Review of Systems ROS Statement: Those systems with pertinent positive or pertinent negative responses have been documented in the HPI. ROS Other: All systems not noted in ROS Statement are negative. Past Medical History Past Medical History: Dementia, GERD/Reflux Additional Past Medical History / Comment(s): hx of varicose veins, hx of covid infection 06/17/20 History of Any Multi-Drug Resistant Organisms: None Reported Past Surgical History: Cholecystectomy Additional Past Surgical History / Comment(s): bilateral cataract surgery; right leg vein stripping Past Anesthesia/Blood Transfusion Reactions: No Reported Reaction Past Psychological History: No Psychological Hx Reported Smoking Status: Never smoker Past Alcohol Use History: None Reported Past Drug Use History: None Reported - Past Family History Mother Family Medical History: No Reported History General Exam Limitations: no limitations General appearance: alert, in no apparent distress Head exam: Present: atraumatic, normocephalic, normal inspection Eye exam: Present: normal appearance, PERRL, EOMI. Absent: scleral icterus, conjunctival injection, periorbital swelling ENT exam: Present: normal exam, mucous membranes moist Neck exam: Present: normal inspection. Absent: tenderness, meningismus, lymphadenopathy Respiratory exam: Present: normal lung sounds bilaterally. Absent: respiratory distress, wheezes, rales, rhonchi, stridor Cardiovascular Exam: Present: regular rate, normal rhythm, normal heart sounds. Absent: systolic murmur, diastolic murmur, rubs, gallop, clicks GI/Abdominal exam: Present: soft, normal bowel sounds. Absent: distended, tenderness, guarding, rebound, rigid External exam: Present: other (Uterine prolapse) Extremities exam: Present: normal inspection, full ROM, normal capillary refill. Absent: tenderness, pedal edema, joint swelling, calf tenderness Back exam: Present: normal inspection Neurological exam: Present: alert, oriented X3, CN II-XII intact Psychiatric exam: Present: normal affect, normal mood Skin exam: Present: warm, dry, intact, normal color. Absent: rash Course Vital Signs 07/17/23 04:41 Temperature 97.8 F Pulse Rate 69 Respiratory 16 Rate Blood Pressure 149/80 O2 Sat by Pulse 100 Oximetry Medical Decision Making - Medical Decision Making Was pt. sent in by a medical professional or institution (NISSA Brumfield, SENIOR LOGISTICS MANAGER, urgent care, hospital, or shelter...) When possible be specific @ -No Did you speak to anyone other than the patient for history (EMS, parent, family, police, friend...)? What history was obtained from this source @ -Spoke with the patient's daughters for history Did you review nursing and triage notes (agree or disagree)? Why? @ -I reviewed and agree with nursing and triage notes Were old charts reviewed (outside hosp., previous admission, EMS record, old EKG, old radiological studies, urgent care reports/EKG's, shelter records)? Report findings @ -No old charts were reviewed Differential Diagnosis (chest pain, altered mental status, abdominal pain women, abdominal pain men, vaginal bleeding, weakness, fever, dyspnea, syncope, headache, dizziness, GI bleed, back pain, seizure, CVA, palpatations, mental health, musculoskeletal)? @ -Uterine prolapse, rectal prolapse, bladder prolapse, UTI, urinary retention EKG interpreted by me (3pts min.). @ -Not done X-rays interpreted by me (1pt min.). @ -None done CT interpreted by me (1pt min.). @ -None done U/S interpreted by me (1pt. min.). @ -None done What testing was considered but not performed or refused? (CT, X-rays, U/S, labs)? Why? @ -None What meds were considered but not given or refused? Why? @ -None Did you discuss the management of the patient with other professionals (professionals i.e. , PA, SENIOR LOGISTICS MANAGER, lab, RT, psych nurse, social service manager, operating table assembler, teacher, chief scientific officer, leather case finisher)? Give summary @ -No Was smoking cessation discussed for >3mins.? @ -No Was critical care preformed (if so, how long)? @ -No Were there social determinants of health that impacted care today? How? (Homelessness, low income, unemployed, alcoholism, drug addiction, transportation, low edu. Level, literacy, decrease access to med. care, [facility], rehab)? @ -No Was there de-escalation of care discussed even if they declined (Discuss DNR or withdrawal of care, Hospice)? DNR status @ -No What co-morbidities impacted this encounter? (DM, HTN, Smoking, COPD, CAD, Cancer, CVA, ARF, Chemo, Hep., AIDS, mental health diagnosis, sleep apnea, morbid obesity)? @ -Dementia Was patient admitted / discharged? Hospital course, mention meds given and route, prescriptions, significant lab abnormalities, going to OR and other pertinent info. @ -Upon arrival patient was seen and evaluated. Bladder scan was performed which demonstrated a significant amount of bladder. Because of this Ontiveros catheter was placed after I did reduce the uterus. I did get return of approximately 300 cc. Urinalysis was sent. Patient does have infected urine. She is initiated on antibiotics. I did speak with the patient and family in regards to removing the catheter. States that now that the uterus is reduced, the patient should not have any issues urinating. She has normally been able to reduce her uterus on her own and urinate without difficulty. Patient should follow-up with [facility] in order to have this repaired. Return for any new or worsening symptoms. Patient was agreeable plan she was discharged in stable condition Undiagnosed new problem with uncertain prognosis? @ -No Drug Therapy requiring intensive monitoring for toxicity (Heparin, Nitro, Insulin, Cardizem)? @ -No Were any procedures done? @ -No Diagnosis/symptom? @ -Acute on chronic vaginal prolapse, acute urinary retention, acute UTI Acute, or Chronic, or Acute on Chronic? @ -Acute on chronic Uncomplicated (without systemic symptoms) or Complicated (systemic symptoms)? @ -Complicated Side effects of treatment? @ -No Exacerbation, Progression, or Severe Exacerbation? @ -No Poses a threat to life or bodily function? How? (Chest pain, USA, VT, pneumonia, PE, COPD, DKA, ARF, appy, cholecystitis, CVA, Diverticulitis, Homicidal, Suicidal, threat to staff... and all critical care pts) @ -No - Lab Data Result diagrams: 07/17/23 06:12 07/17/23 06:12 Lab Results 07/17/23 07/17/23 07/17/23 Range/Units 05:48 06:12 06:12 WBC 11.0 H (3.8-10.6) k/uL RBC 4.55 (3.80-5.40) m/uL Hgb 14.5 (11.4-16.0) gm/dL Hct 42.9 (34.0-46.0) % MCV 94.4 (80.0-100.0) fL MCH 31.9 (25.0-35.0) pg MCHC 33.8 (31.0-37.0) g/dL RDW 13.1 (11.5-15.5) % Plt Count 207 (150-450) k/uL MPV 7.8 Neutrophils % 82 % Lymphocytes % 11 % Monocytes % 4 % Eosinophils % 1 % Basophils % 0 % Neutrophils # 9.1 H (1.3-7.7) k/uL Lymphocytes # 1.2 (1.0-4.8) k/uL Monocytes # 0.5 (0-1.0) k/uL Eosinophils # 0.2 (0-0.7) k/uL Basophils # 0.0 (0-0.2) k/uL Sodium 136 L (137-145) mmol/L Potassium 4.1 (3.5-5.1) mmol/L Chloride 108 H (98-107) mmol/L Carbon Dioxide 20 L (22-30) mmol/L Anion Gap 8 mmol/L BUN 12 (7-17) mg/dL Creatinine 0.64 (0.52-1.04) mg/dL Est GFR (CKD-EPI)AfAm >90 (>60 ml/min/1.73 sqM) Est GFR (CKD-EPI)NonAf 86 (>60 ml/min/1.73 sqM) Glucose 104 H (74-99) mg/dL Calcium 9.0 (8.4-10.2) mg/dL Total Bilirubin 1.5 H (0.2-1.3) mg/dL AST 33 (14-36) U/L ALT 18 (4-34) U/L Alkaline Phosphatase 59 (38-126) U/L Total Protein 6.0 L (6.3-8.2) g/dL Albumin 3.4 L (3.5-5.0) g/dL Urine Color Yellow Urine Appearance Turbid H (Clear) Urine pH 7.0 (5.0-8.0) Ur Specific [place] 1.019 (1.001-1.035) Urine Protein 2+ H (Negative) Urine Glucose (UA) Negative (Negative) Urine Ketones Trace H (Negative) Urine Blood Moderate H (Negative) Urine Nitrite Negative (Negative) Urine Bilirubin Negative (Negative) Urine Urobilinogen <2.0 (<2.0) mg/dL Ur Leukocyte Esterase Large H (Negative) Urine RBC >182 H (0-5) /hpf Urine WBC >182 H (0-5) /hpf Urine WBC Clumps Many H (None) /hpf Urine Mucus Rare H (None) /hpf Disposition Clinical Impression: Dysuria, Urinary retention with incomplete bladder emptying, Uterine prolapse Disposition: HOME SELF-CARE Condition: Stable Instructions (If sedation given, give patient instructions): Uterine Prolapse (ED) Additional Instructions: Please take the antibiotics as directed. Call the [facility] [facility] make an appointment. Return for any new or worsening symptoms Prescriptions: Cephalexin [Keflex] 500 mg PO BID #14 tab Is patient prescribed a controlled substance at d/c from ED?: No Referrals: Dustin Jj DO [Primary Care Provider] - 1-2 days Jarret Escobar DO [REFERRING] - 1-2 days Kimberlyn Laboy DO [REFERRING] - 1-2 days Ailyn Gama DO [Doctor of Osteopathic Medicine] - 1-2 days Time of Disposition: 07:33
[2023-07-17 07:00] LABS: ALT 18 U/L (4-34); African American GFR (CKD) >90 (>60 ml/min/1.73 sqM); Albumin 3.4 g/dL (3.5-5.0); Anion Gap 8 mmol/L; Blood Urea Nitrogen 12 mg/dL (7-17); Carbon Dioxide 20 mmol/L (22-30); Chloride 108 mmol/L (98-107); Glucose 104 mg/dL (74-99); Non-African American GFR(CKD) 86 (>60 ml/min/1.73 sqM); Sodium 136 mmol/L (137-145); Total Bilirubin 1.5 mg/dL (0.2-1.3)
[2023-07-17 07:08] LABS: AST 33 U/L (14-36); Alkaline Phosphatase 59 U/L (38-126); Potassium 4.1 mmol/L (3.5-5.1)
== END 2023-07-17 07:56 | disposition home or self-care (01) ==
LOC: EC 04:40
DX: R33.9 Retention of urine, unspecified (principal); R31.9 Hematuria, unspecified; R30.0 Dysuria; N81.4 Uterovaginal prolapse, unspecified; Z86.16 Personal history of COVID-19
CPT/HCPCS: 36415; 80053; 85025; 81001; 99284; 96374; 96375; 51702; J2270; J0696

== ENCOUNTER 2023-09-13 10:40 | Day surgery (SDC) | payer MEDICARE, OTHER ==
[2023-09-11 11:14] VITALS: BMI 26.9
[~2023-09-13 10:40] MED LIST changes: -ACETAMINOPHEN TAB 500 MG TAB PO PRN; -DEXAMETHASONE SOD PHOSPHATE 4 MG/ML 1 ML VIAL IV ONE; -HEPARIN SODIUM,PORCINE/PF 5,000 UNIT/0.5 ML SYRINGE SQ PRN; -HYDROmorphone 0.5 MG/0.5 ML SYRINGE IVP PRN; -LACTATED RINGERS 1,000 ML IV SCH; -MIDAZOLAM 2 MG/2 ML VIAL IV PRN; -ONDANSETRON 4 MG/2 ML VIAL IVP ONE
[2023-09-13 12:06] VITALS: TEMP 97.1
[2023-09-13] MEDS: IV FLUID CONTINUATION 1,000 ML IV ONE (12:19)
[2023-09-13] MEDS: LACTATED RINGERS 1,000 ML IV SCH (12:20)
[2023-09-13] MEDS ORDERED: PROPOFOL 10 MG/ML 20 ML VIAL IV ONE (12:36)
--- NOTE | 2023-09-13 12:44 | P.PCN ---
Date of Procedure: 09/13/23 Procedure(s) Performed: BRIEF HISTORY: Patient is a 77-year-old, pleasant, white female scheduled for an upper endoscopy as a part of evaluation of epigastric pain, intermittent dysphagia to solids and 1 episode of coffee-ground emesis about 2 weeks. PROCEDURE PERFORMED: Esophagogastroduodenoscopy with dilation PREOPERATIVE DIAGNOSIS: Epigastric pain/coffee-ground emesis/intermittent dysphagia to solids. IV sedation per anesthesia. PROCEDURE: After informed consent was obtained, the patient was brought into the endoscopy unit. IV sedation was administered by Anesthesia under continuous monitoring. Initially the Olympus GIF-140 video endoscope was inserted into the mouth. Esophagus intubated without any difficulty. It was gradually advanced into the distal esophagus. There was a tight distal esophageal stricture identified the scope could not be advanced through the stricture into the st omach. At this time balloon dilation was performed using 8 to 10 mm TTS balloon for 60 seconds. Following this I was able to advance the scope into the stomach and duodenum and carefully examined. The bulb and the second part of the duodenum appeared normal. The scope at this time was withdrawn to the stomach, adequately insufflated with air, and upon careful examination, mucosa of the antrum, body, cardia and the fundus appeared normal. The scope was then withdrawn into the esophagus. The GE junction was located at 36 cm from the incisors. There was mucosal oozing at the site of dilation. There were linear erosions in the distal esophagus consistent with LA grade B reflux esophagitis. The rest of the esophagus appeared normal and the patient tolerated the procedure well. IMPRESSION: 1. Tight distal esophageal stricture status post balloon dilation using 25 mm TTS balloon as described above 2. Linear erosions at distal esophagus consistent with LA grade B reflux esophagitis. RECOMMENDATIONS: The findings of this examination were discussed with the patient as well as her family. She was advised to remain on clear liquids for 2 hours. Soft diet for the rest of the day. Continue with omeprazole 20 mg every day and follow antireflux measures. Follow-up in the office in 4 weeks.
[2023-09-13 13:10] VITALS: RESP 17
[2023-09-13 13:23] VITALS: BP 96/53; PULSE 74
== END 2023-09-13 13:28 | disposition home or self-care (01) ==
LOC: ORWHC2ENDO 10:40
PROVIDERS: ATTEND Internal Medicine Gastroenterology
DX: K22.2 Esophageal obstruction (principal); F03.90 Unspecified dementia, unspecified severity, without behavioral disturbance, psychotic disturbance, mood disturbance, and anxiety; Z79.899 Other long term (current) drug therapy
CPT/HCPCS: 43249; J2704; C1726

== ENCOUNTER 2023-10-02 22:44 | Emergency (ER) | payer MEDICARE, OTHER ==
[2023-10-02 23:10] VITALS: RESP 16
--- NOTE | 2023-10-02 23:28 | ED ---
Animal Bite HPI - General Chief Complaint: Animal Bite Stated Complaint: Cat Scratch/Left Arm Skin Tear Time Seen by Provider: 10/02/23 23:26 Source: patient, family, RN notes reviewed Mode of arrival: ambulatory Limitations: no limitations - History of Present Illness Initial Comments: 77-year-old female presented to the ER with a chief complaint of a cat scratch. Patient was picking up her cat when it accidentally scratched her left forearm. She states bleeding is controlled. Tetanus status unknown. Patient denies any other injuries or complaints. - Related Data Home Medications Medication Instructions Recorded Confirmed Omeprazole 20 mg PO DAILY 06/10/23 09/11/23 Previous Rx's Medication Instructions Recorded Acetaminophen Tab [Tylenol] 650 mg PO Q6HR PRN tab 06/14/23 Mag Hydrox/Al Hydrox/Simeth 15 ml PO Q6HR PRN ml 06/14/23 [Maalox] Azithromycin [Zithromax Z Pack] 0 tab PO DIRECTED #6 tab 10/02/23 Allergies Allergy/AdvReac Type Severity Reaction Status Date / Time doxycycline Allergy Rash/Hives Verified 10/02/23 23:11 Review of Systems ROS Statement: Those systems with pertinent positive or pertinent negative responses have been documented in the HPI. ROS Other: All systems not noted in ROS Statement are negative. Past Medical History Past Medical History: Dementia, GERD/Reflux Additional Past Medical History / Comment(s): hx of varicose veins, hx of covid infection 06/17/20 History of Any Multi-Drug Resistant Organisms: None Reported Past Surgical History: Cholecystectomy, Orthopedic Surgery Additional Past Surgical History / Comment(s): bilateral cataract surgery; right leg vein stripping , right wrist fracture, prolapsed uterus, colonoscopy Past Anesthesia/Blood Transfusion Reactions: No Reported Reaction Additional Past Anesthesia/Blood Transfusion Reaction / Comment(s): no blood transfusion Past Psychological History: No Psychological Hx Reported Smoking Status: Never smoker Past Alcohol Use History: None Reported Past Drug Use History: None Reported - Past Family History Mother Family Medical History: No Reported History Daughter(s) Family Medical History: Cancer Additional Family Medical History / Comment(s): breast General Exam Limitations: no limitations General appearance: alert, in no apparent distress Respiratory exam: Present: normal lung sounds bilaterally. Absent: respiratory distress, wheezes, rales, rhonchi, stridor Cardiovascular Exam: Present: regular rate, normal rhythm, normal heart sounds. Absent: systolic murmur, diastolic murmur, rubs, gallop, clicks Extremities exam: Present: normal inspection, full ROM, normal capillary refill, other (2 cm skin tear to left forearm. No active bleeding. 2+ left radial pulse. Sensation intact. Patient has full active range of motion.). Absent: tenderness, pedal edema, joint swelling, calf tenderness Skin exam: Present: warm, dry, intact, normal color. Absent: rash Course Vital Signs 10/02/23 10/02/23 23:07 23:50 Temperature 98 F 98.1 F Pulse Rate 68 72 Respiratory 16 16 Rate Blood Pressure 117/66 118/68 O2 Sat by Pulse 96 97 Oximetry Medical Decision Making - Medical Decision Making Was pt. sent in by a medical professional or institution (NISSA Brumfield, ASSISTANT SALES MANAGER, urgent care, hospital, or snf...) When possible be specific @ -No Did you speak to anyone other than the patient for history (EMS, parent, family, police, friend...)? What history was obtained from this source @ -Daughter aiding in HPI Did you review nursing and triage notes (agree or disagree)? Why? @ -I reviewed and agree with nursing and triage notes Were old charts reviewed (outside hosp., previous admission, EMS record, old EKG, old radiological studies, urgent care reports/EKG's, snf records)? Report findings @ -No old charts were reviewed Differential Diagnosis (chest pain, altered mental status, abdominal pain women, abdominal pain men, vaginal bleeding, weakness, fever, dyspnea, syncope, headache, dizziness, GI bleed, back pain, seizure, CVA, palpatations, mental health, musculoskeletal)? @ -Skin tear, abrasion, laceration This list is not meant to be all-inclusive EKG interpreted by me (3pts min.). @ -None X-rays interpreted by me (1pt min.). @ -None done CT interpreted by me (1pt min.). @ -None done U/S interpreted by me (1pt. min.). @ -None done What testing was considered but not performed or refused? (CT, X-rays, U/S, labs)? Why? @ -None What meds were considered but not given or refused? Why? @ -None Did you discuss the management of the patient with other professionals (professionals i.e. , PA, ASSISTANT SALES MANAGER, lab, RT, psych nurse, social work assistant, veterinary parasitologist, teacher, field crop technical officer, heel caser)? Give summary @ -No Was smoking cessation discussed for >3mins.? @ -No Was critical care preformed (if so, how long)? @ -No Were there social determinants of health that impacted care today? How? (Homelessness, low income, unemployed, alcoholism, drug addiction, transportation, low edu. Level, literacy, decrease access to med. care, senior care, rehab)? @ -No Was there de-escalation of care discussed even if they declined (Discuss DNR or withdrawal of care, Hospice)? DNR status @ -No What co-morbidities impacted this encounter? (DM, HTN, Smoking, COPD, CAD, Cancer, CVA, ARF, Chemo, Hep., AIDS, mental health diagnosis, sleep apnea, morbid obesity)? @ -None Was patient admitted / discharged? Hospital course, mention meds given and route, prescriptions, significant lab abnormalities, going to OR and other pertinent info. @ -Discharge. 77-year-old female presented to the ER with a chief complaint of a cat scratch. History and physical exam completed. Vitals stable. Patient in no signs of acute distress and nontoxic-appearing. There is a 2 cm skin tear to left forearm. No active bleeding. Left upper extremity neurovascular intact. Wound cleaned with iodine and sterile water. Steri-Strips approximating edges of skin tear. Patient will be started on azithromycin, first dose in the ER for infection prophylaxis due to mechanism of injury. Tetanus updated. Strict return parameters discussed. Patient discharged in stable condition with follow-up to PCP. Patient verbally expressed understanding and agreed with care plan. Case discussed with ED attending, Dr. Mo. Undiagnosed new problem with uncertain prognosis? @ -No Drug Therapy requiring intensive monitoring for toxicity (Heparin, Nitro, Insulin, Cardizem)? @ -No Were any procedures done? @ -No Diagnosis/symptom? @ -Cat scratch to forearm Acute, or Chronic, or Acute on Chronic? @ -Acute Uncomplicated (without systemic symptoms) or Complicated (systemic symptoms)? @ -Uncomplicated Side effects of treatment? @ -No Exacerbation, Progression, or Severe Exacerbation? @ -No Poses a threat to life or bodily function? How? (Chest pain, USA, IA, pneumonia, PE, COPD, DKA, ARF, appy, cholecystitis, CVA, Diverticulitis, Homicidal, Suicidal, threat to staff... and all critical care pts) @ -No Disposition Clinical Impression: Cat scratch of forearm Disposition: HOME SELF-CARE Condition: Stable Instructions (If sedation given, give patient instructions): Animal Bite (ED) Additional Instructions: Please complete full course of antibiotics. Follow-up with PCP. Have a low threshold for returning to the ER for increase in swelling, surrounding redness or purulent drainage. You may take [id number] Tylenol and Motrin for pain control. Return to the ER for any new or worsening concerns. Prescriptions: Azithromycin [Zithromax Z Pack] 0 tab PO DIRECTED #6 tab Is patient prescribed a controlled substance at d/c from ED?: No Referrals: Dustin Jj DO [Primary Care Provider] - 1-2 days Time of Disposition: 23:28
[2023-10-02] MEDS: DIPH,PERTUS(ACELL)TETVAC-LF 0.5 ML VIAL IM ONE (23:45)
[2023-10-02] MEDS: AZITHROMYCIN 500 MG TAB PO STA (23:45)
[2023-10-02 23:51] VITALS: BP 118/68; PULSE 72; TEMP 98.1
== END 2023-10-02 23:50 | disposition home or self-care (01) ==
LOC: EC 22:44
DX: S51.852A Open bite of left forearm, initial encounter (principal); Z23 Encounter for immunization; W55.03XA Scratched by cat, initial encounter
CPT/HCPCS: 90471; 90715; 99283

== ENCOUNTER → 2024-02-27 | Outpatient (CLI) | payer MEDICARE, OTHER ==
--- NOTE | 2024-03-03 04:18 | MM ---
Reason for Exam: Screening (asymptomatic). Last mammogram was performed 1 year(s) and 2 month(s) ago. Patient History: Menarche at age 16. First Full-Term at age 17. Postmenopausal. Daughter had breast cancer, age 42. Risk Values: Adrianna 5 year model risk: 2.9%. NCI Lifetime model risk: 4.8%. Prior Study Comparison: 12/30/2020 Bilateral Screening Mammogram, [facility]. 01/03/2022 Bilateral MG 3D screening mammo w/cad, [facility]. 01/05/2023 Bilateral MG 3D screening mammo w/cad, [facility]. Tissue Density: There are scattered areas of fibroglandular density. Findings: Analyzed By CAD. The pattern is symmetrical. No significant interval change. No suspicious groups of microcalcifications, spiculated or lobular masses, architectural distortion or other secondary signs of malignancy are mammographically apparent. Overall Assessment: Benign, BI-RAD 2 Management: Screening Mammogram of both breasts in 1 year. A negative mammogram report should not preclude additional follow up of suspicious palpable abnormalities. Patient should continue monthly self breast exam. A clinical breast exam by your physician is recommended on an annual basis and results should be correlated with mammographic findings. Note on Adrianna scores and lifetime risk: 1. A Adrianna score greater than 3% is considered moderate risk. If this is the case, consider specialist referral to assess eligibility for a risk reducing agent. 2. If overall lifetime risk for the development of breast cancer is 20% or higher, the patient may qualify for future screening with alternating mammogram and breast MRI. [facility], , 03/03/2024 4:15 AM. Electronically signed and approved by: Maikol Flynn D.O. Radiologis
== END | disposition home or self-care (01) ==
LOC: RADMAMWWP 14:47
PROVIDERS: ATTEND Family Medicine
DX: Z12.31 Encounter for screening mammogram for malignant neoplasm of breast (principal); Z78.0 Asymptomatic menopausal state; Z80.3 Family history of malignant neoplasm of breast; R92.323 Mammographic fibroglandular density, bilateral breasts
CPT/HCPCS: 77063; 77067